=== PATIENT | male | born 1935 | race Asian ===

== ENCOUNTER → 2020-05-11 10:22 | Outpatient (BNVA) | payer MEDICARE, SELFPAY | PROVIDERS: PCP Family Medicine; Referring Provider Family Medicine; Visit Provider Internal Medicine Endocrinology, Diabetes & Metabolism | DX: E11.65 Type 2 diabetes mellitus with hyperglycemia (principal); E11.22 Type 2 diabetes mellitus with diabetic chronic kidney disease; E11.21 Type 2 diabetes mellitus with diabetic nephropathy; E11.42 Type 2 diabetes mellitus with diabetic polyneuropathy; E11.649 Type 2 diabetes mellitus with hypoglycemia without coma; N18.30 Chronic kidney disease, stage 3 unspecified; E78.5 Hyperlipidemia, unspecified; I10 Essential (primary) hypertension; I25.10 Atherosclerotic heart disease of native coronary artery without angina pectoris; Z79.899 Other long term (current) drug therapy; Z87.891 Personal history of nicotine dependence; Z79.4 Long term (current) use of insulin | CPT/HCPCS: 82947; 99212 ==

== ENCOUNTER 2020-05-23 15:57 | Inpatient (IN) | payer MEDICARE, SELFPAY ==
[2020-05-23 16:04] VITALS: BP 118/64; PULSE 87; RESP 16; TEMP 36.9; O2SAT 96; BMI 24.9
--- NOTE | 2020-05-23 16:12 | XR_ITS ---
EXAMINATION: XR CHEST CLINICAL INFORMATION: Weakness. COMPARISON: Chest x-ray 12/08/2017. CT of chest 06/11/2006 TECHNIQUE: Frontal portable view of the chest was obtained. 4:53 PM FINDINGS: No acute abnormality. There is no acute airspace opacity. There is no pleural effusion or pneumothorax. Heart size is normal. The cardiac and mediastinal contours are normal. Chronic osteosclerotic rib abnormality from old healed fracture of the posterior right seventh and eighth ribs. Prior surgical resection of the distal right clavicle. Multilevel degenerative spondylosis spine. XR/XR chest 1V IMPRESSION: No acute abnormality of the chest.
--- NOTE | 2020-05-23 16:12 | ECG_ITS ---
Test Reason : CP Blood Pressure : / mmHG Vent. Rate : 083 BPM Atrial Rate : 083 BPM P-R Int : 260 ms QRS Dur : 112 ms QT Int : 382 ms P-R-T Axes : 050 -68 026 degrees QTc Int : 448 ms Sinus rhythm with 1st degree A-V block Possible Left atrial enlargement Left axis deviation Right bundle branch block cannot exclude old inferior infarct Abnormal ECG When compared with ECG of 20-OCT-2011 11:58, QRS axis Shifted left possible changes of Inferior infarct is now Present Referred By: Elton Marti Electronically Signed By:GURWINDER LOVE
[2020-05-23 16:58] LABS: MANUAL DIFF FLAG NO
[2020-05-23 16:59] LABS: Basophils Percent Auto 0.3 % (0-2); Eosinophils Percent Auto 0.1 % (0-4); Hematocrit 37.8 % (42-52); Hemoglobin 12.2 g/dl (14.0-18.0); Imm Gran Abs Auto 0.03 X10*3/uL (0.00-0.03); Imm Gran Pct Auto 0.4 % (0.0-0.4); Lymphocytes Percent Auto 12.9 % (20-40); Mean Corpuscular HGB Conc 32.3 g/dl (31.0-36.0); Mean Corpuscular Hemoglobin 29.3 pg (27.0-33.0); Mean Corpuscular Volume 90.6 fL (80-98); Mean Platelet Volume 9.7 fL (9.4-12.4); Monocytes Absolute Auto 0.7 X10*3/uL (0.1-1.2); Monocytes Percent Auto 9.2 % (2-11); Neutrophils Absolute Auto 5.8 X10*3/uL (2.0-8.3); Neutrophils Percent Auto 77.1 % (45-73); Platelet Count 203 X10*3/uL (160-400); Red Blood Count 4.17 X10*6/uL (4.60-5.80); Red Cell Distribution Width 13.8 % (11.0-16.0); White Blood Count 7.5 X10*3/uL (4.8-10.8)
[2020-05-23 17:03] LABS: INTERNATIONAL NORM RATIO 1.1 (0.9-1.1); Prothrombin Time 13.1 SEC (10.8-13.0)
[2020-05-23 17:05] LABS: D Dimer 685 NG/ML; Partial Thromboplastin Time 33.9 SEC (24.1-38.0)
[2020-05-23] MEDS: 0.9 % Sodium Chloride 500 ML 999 ML IV (17:15)
[2020-05-23 17:20] LABS: Lactic Acid 2.5 mmol/L (0.5-2.0)
[2020-05-23 17:21] LABS: Alanine Aminotransferase 33 U/L (0-40); Albumin Level 3.8 g/dL (3.5-5.0); Alkaline Phosphatase 45 U/L (39-117); Anion Gap 16 (12-20); Aspartate Amino Transferase 33 U/L (5-37); Bilirubin Total 0.5 mg/dL (0.0-1.0); Blood Urea Nitrogen 28 mg/dL (9-16); C Reactive Protein 4.78 mg/dL (< or = 0.50); Carbon Dioxide 21 mmol/L (22-29); Chloride 101 mmol/L (96-108); Creatinine Clr Calc Pharmacy 22.8; Estimated Glomerular Filt Rate 27; Glucose Random 178 mg/dL (60-115); Lactate Dehydrogenase 211 U/L (118-273); Potassium 4.9 mmol/l (3.3-5.1); Sodium 133 mmol/L (135-145); Total Protein 6.8 g/dL (6.5-8.0)
[2020-05-23 17:29] LABS: B Type Natriuretic Peptide 65 pg/mL (<100); Troponin-I High Sensitivity 118.1 ng/L (<3.5-35.0)
--- NOTE | 2020-05-23 17:35 | CT_ITS ---
EXAMINATION: CT CHEST WITHOUT CONTRAST CLINICAL INFORMATION: Weakness COMPARISON: Chest x-ray today TECHNIQUE: Multidetector volumetric CT imaging of the chest was done. Axial MIP volume rendering provided. Sagittal and coronal reformatted images were obtained. This CT examination was performed using dose optimization techniques as appropriate, variously including the following: *Automated exposure control *Adjustment of mA and/or kV according to patient size (this includes techniques or standardized protocols for targeted exams where dose is matched to indication/reason for exam; i.e. extremities or head) *Use of iterative reconstruction technique DLP: 956 mGy-cm FINDINGS: LUNGS: There are numerous multifocal groundglass opacities, pattern of Crazy paving , consistent with atypical infection such as Covid 19. Although the affected. Lower lobes are most affected. No focal dense consolidation. MEDIASTINUM: No significant lymphadenopathy. There are multiple calcified lymph nodes in the mediastinum consistent with old granulomatous disease. The heart size is normal. No pericardial effusion. Moderate volume of coronary artery calcifications. There are scattered vascular calcifications of aorta and great vessels. PLEURA: There is no pleural effusion. No pleural mass or thickening. AXILLA: No lymphadenopathy. UPPER ABDOMEN: Status post cholecystectomy. The adrenal glands are normal. OSSEOUS STRUCTURES: Unremarkable. CT/CT chest wo con IMPRESSION: Multifocal bilateral airspace disease consistent with atypical infection such as Covid 19.
--- NOTE | 2020-05-23 17:35 | CT_ITS ---
EXAMINATION: CT HEAD WITHOUT CONTRAST CLINICAL INFORMATION: Weakness COMPARISON: CT head 06/11/2006 TECHNIQUE: Contiguous axial imaging was performed from the skull base to vertex without intravenous administration of contrast. Coronal and sagittal reformatted images are performed at CT scanner This CT examination was performed using dose optimization techniques as appropriate, variously including the following: *Automated exposure control *Adjustment of mA and/or kV according to patient size (this includes techniques or standardized protocols for targeted exams where dose is matched to indication/reason for exam; i.e. extremities or head) *Use of iterative reconstruction technique DLP: 694.04+5.12 mGy-cm FINDINGS: There is no evidence of acute intracranial hemorrhage or territorial infarction. No abnormal mass effect or midline shift is seen. Farmer to white matter differentiation is well preserved. No extra-axial fluid collections are identified. There is atrophy with prominence of the ventricles and the sulci and hypodensity of the periventricular white matter due to chronic small vessel ischemic disease. There are vascular calcifications of the internal carotid arteries bilaterally. The osseous structures and soft tissues are normal. The mastoid air cells and visualized portions of the paranasal sinuses are well aerated. CT/CT head/brain wo con IMPRESSION: No acute intracranial pathology.
[2020-05-23 18:33] LABS: Influenza A PCR NEGATIVE (Negative); Influenza B PCR NEGATIVE (Negative); Resp Syncy Virus RNA Qual PCR NEGATIVE (Negative); SARS COV2 PCR INHOUSE POSITIVE (Negative)
[2020-05-23 18:37] VITALS: PULSE 96; RESP 20; TEMP 36.9; O2SAT 97
[2020-05-23] MEDS: Acetaminophen 325 MG TABLET 650 MG PO (18:53)
[2020-05-23 18:56] LABS: Reflex Lactate? Lactic Acid Added
--- NOTE | 2020-05-23 19:10 | PC.NURSE ---
assumed care of pt. pt resting in stretcher in NAD. PA in room for re-eval. Labs being drawn to lab. pt awaiting room assignment. will continue to monitor pt.
[2020-05-23 19:42] LABS: Procalcitonin 0.09 ng/mL
[2020-05-23 20:18] VITALS: BP 132/65; PULSE 91; RESP 20; TEMP 37.3; O2SAT 95
--- NOTE | 2020-05-23 20:18 | PC.NURSE ---
pt medicated as per emar.
[2020-05-23] MEDS: Azithromycin 500 MG TABLET PO (20:30)
[2020-05-23] MEDS: cefTRIAXone sodium 1 GM in 0.9 % Sodium Chloride 50 ML IV (20:31)
[2020-05-23] MEDS: Enoxaparin Sodium 30 MG/0.3 ML SYRINGE SUBCUT (20:31)
--- NOTE | 2020-05-23 20:40 | ED.GENADULT ---
HPI - General Adult General Chief complaint: General Medical Stated complaint: body pain Time Seen by Provider: 05/23/20 16:10 Source: patient Mode of arrival: ambulatory Limitations: no limitations History of Present Illness HPI narrative: This is a 84-year-old male past medical history that is significant for diabetes, chronic kidney disease stage 3, diabetic neuropathy, dyslipidemia, hypertension, status post IL, surgical history of prostate surgery, colon resection, cholecystectomy who presents today with complaint of 5 days of myalgia and body aches with generalized weakness. States he has been very much in bed for past 5 days with no energy and diffuse body aches. States some shortness of breath on exertion otherwise no chest pain. No lower extremity pain or swelling. Onset (ago): day(s) (5 days ) Severity: moderate Quality: aching Pain Consistency: constant Relieving factors: none Treatments prior to arrival: none Related Data Home Medications Medication Instructions Recorded Confirmed aspirin 81 mg tablet,delayed 81 mg PO DAILY 05/11/20 05/23/20 release atorvastatin 20 mg tablet 20 mg PO DAILY 05/11/20 05/23/20 blood sugar diagnostic #10 ea 05/11/20 05/11/20 metformin 500 mg tablet 500 mg PO BID tab 05/11/20 05/23/20 metoprolol succinate 50 mg 25 mg PO DAILY tab 05/11/20 05/23/20 tablet,extended release 24 hr pen needle, diabetic 32 gauge x #50 ea 05/11/20 05/11/20 sitagliptin [Januvia] 100 mg PO DAILY 05/23/20 05/23/20 Allergies Allergy/AdvReac Type Severity Reaction Status Date / Time Unable to Assess Allergy Verified 05/23/20 16:11 Review of Systems Review of Systems: Constitutional: No Weight loss, No Fever, No Chills, No Night Sweats, No Fatigue ENT/Mouth: No Hearing loss, No Ear Pain, No Nasal Congestion, No Sinus Pain, No Hoarseness, No sore throat, No Rhinorrhea, No Swallowing Difficulty Eyes: No Eye Pain, No Swelling, No Redness, No Foreign Body, No Discharge, No Vision Changes Cardiovascular: No Chest Pain, No SOB, mild Dyspnea on Exertion, No Edema, No Palpitations Respiratory: No Cough, No Sputum, No Wheezing, No Smoke Exposure, No Dyspnea Gastrointestinal: No Nausea, No Vomiting, No Diarrhea, No Constipation, No abdominal Pain, No Hematochezia, No Melena Genitourinary: no irregular bleeding, No Dysuria, No Urinary Frequency, No Hematuria, No Urinary Incontinence, No Urgency, No Flank Pain, No Urinary Flow Changes, No Hesitancy Musculoskeletal: No joint pain, + Myalgias, No Joint Swelling Skin: No Skin Lesions, No rash Neuro: + Weakness, No Numbness, No Paresthesias, No Loss of Consciousness, No Dizziness, No Headache Psych: No Social Issues Heme/Lymph: No Bruising, No Bleeding,No Lymphadenopathy Endocrine: No Polyuria, No Polydipsia, No Temperature Intolerance Yes all other systems are reviewed and are negative [facility] Past Medical History Medical History (Updated 05/23/20 @ 22:06 by Elton Marti NP) CKD stage 3 due to type 2 diabetes mellitus Diabetes type 2, uncontrolled Diabetic nephropathy associated with type 2 diabetes mellitus Diabetic polyneuropathy associated with type 2 diabetes mellitus Dyslipidemia Hypertension Hypoglycemia unawareness associated with type 2 diabetes mellitus [facility] (current) use of insulin Surgical History History of colon resection History of prostate surgery Hx of cholecystectomy Social History Social History (Updated 05/10/20 @ 11:39 by Criss Tran LPN) Alcohol intake: never Smoking Status: Never smoker Tobacco Type: Cigarette Use of substances other than those prescribed or required for medical reasons: No Advance Directives: No Advance Directives Information Provided: No Physical Exam Vital Signs: Vital Signs: Last Vital Signs Temp 99.1 F 05/23/20 20:18 Pulse 91 05/23/20 20:18 Resp 20 05/23/20 20:18 BP 132/65 05/23/20 20:18 Pulse Ox 95 05/23/20 20:18 Body Mass Index 24.9 Reviewed Const: Other: Frail, elderly General: cooperative Nutritional Appearance: average body habitus Orientation/consciousness: patient oriented x3 HENMT: Head: Yes normal to inspection Ears: hearing grossly normal bilaterally Eyes: General: appearance normal, both eyes and all related structures Visual Arriola: normal visual arriola by confrontation Neck: Neck: Yes normal visual inspection, No positive Brudzinski's sign, No positive Kernig's sign and No tender Thyroid: Thyroid normal Chest: Chest palpation & inspection: normal inspection of the chest Resp: Effort & Inspection: normal respiratory effort Auscultation: clear to auscultation bilaterally Cardio: Jugular venous distension: no JVD Rhythm: regular rhythm Heart sounds: S1 normal heart sound present and S2 normal heart sound present GI: Inspection: Yes normal to inspection Palpation (GI): Soft to palpation Percussion: Yes normal to percussion Auscultation: normal bowel sounds : General: Yes no CVA tenderness Back/Spine/Pelvis: Back: no CVA tenderness Skin: General skin exam: no rashes or lesions noted Neuro: General: patient oriented x3 Extrem: General: Yes normal to inspection Course Course Course Narrative: In review 84-year-old male with above history including hypertension, hyperlipidemia, diabetes, chronic kidney disease with prior history of IL presents today with generalized weakness and myalgias going on for the past 5 days. Upon arrival visibly has exertional dyspnea feels short of breath with a few stabs however hemodynamically stable. 95% on room air not tachycardic. Will check COVID stratification labs, EKG and chest x-ray will treat with oxygen p.r.n., gradual fluids and re-evaluate. Reevaluation(s) Reevaluation #1: CBC without leukocytosis, initial troponin 118 EKG with no acute findings. Case discussed with cardiology given no pain repeat troponin. Chest x-ray unremarkable however given his symptoms I suspect COVID-19 swab is still pending CT of the chest ordered. D-dimer 685 while within the age adjusted limit. Renal function slightly higher than baseline. He still has some chills will go ahead and give him Tylenol. Reevaluation #2: CT with multifocal COVID pneumonia, positive COVID swab as well. Consultations Consultation #1: Cardiology Consultation #2: Hospitalist Chery Alcantar Admission requested Aware given dexamethasone I question whether patient should receive empiric antibiotics are not at this point I was informed that it is not indicated and should defer on antibiotics. Will admit to services. Medical Decision Making Lab Data Result diagrams: 05/23/20 16:50 05/23/20 16:50 Labs: Lab Results 05/23/20 05/23/20 05/23/20 Range/Units 16:49 16:49 16:50 WBC 7.5 (4.8-10.8) X10*3/uL RBC 4.17 L (4.60-5.80) X10*6/uL Hgb 12.2 L (14.0-18.0) g/dl Hct 37.8 L (42-52) % MCV 90.6 (80-98) fL MCH 29.3 (27.0-33.0) pg MCHC 32.3 (31.0-36.0) g/dl RDW 13.8 (11.0-16.0) % Plt Count 203 (160-400) X10*3/uL MPV 9.7 (9.4-12.4) fL Immature Gran % (Auto) 0.4 (0.0-0.4) % Neut % (Auto) 77.1 H (45-73) % Lymph % (Auto) 12.9 L (20-40) % [place] % (Auto) 9.2 (2-11) % Eos % (Auto) 0.1 (0-4) % Baso % (Auto) 0.3 (0-2) % Lymph # (Auto) 1.0 L (1.2-4.9) X10*3/uL [place] # (Auto) 0.7 (0.1-1.2) X10*3/uL Eos # (Auto) 0.0 (0.0-0.4) X10*3/uL Baso # (Auto) 0.0 (0.0-0.2) X10*3/uL Abs Immat Gran (auto) 0.03 (0.00-0.03) X10*3/uL Absolute Neuts (auto) 5.8 (2.0-8.3) X10*3/uL Absolute Nucleated RBC 0.000 (0.0-0.012) X10*3/uL Nucleated RBC % (auto) 0.0 (0.0-0.2) /100WBC PT (10.8-13.0) SEC INR (0.9-1.1) APTT (24.1-38.0) SEC D-Dimer NG/ML Sodium (135-145) mmol/L Potassium (3.3-5.1) mmol/l Chloride (96-108) mmol/L Carbon Dioxide (22-29) mmol/L Anion Gap (12-20) BUN (9-16) mg/dL Creatinine (0.5-1.4) mg/dL Estim Creat Clear Calc Estimated GFR Random Glucose (60-115) mg/dL Lactic Acid 2.5 H* (0.5-2.0) mmol/L Lactic Acid Fup @ 2Hr (0.5-2.0) mmol/L Calcium (8.4-10.2) mg/dL Total Bilirubin (0.0-1.0) mg/dL AST (5-37) U/L ALT (0-40) U/L Alkaline Phosphatase (39-117) U/L Lactate Dehydrogenase (118-273) U/L Total Creatine Kinase (38-174) U/L Troponin I High Sens 118.1 H (<3.5-35.0) ng/L C-Reactive Protein (< or = 0.50) mg/dL B-Natriuretic Peptide 65 (<100) pg/mL Total Protein (6.5-8.0) g/dL Albumin (3.5-5.0) g/dL Procalcitonin ng/mL Coronavirus (PCR) (Negative) Influenza Type A (PCR) (Negative) Influenza Type B (PCR) (Negative) RSV RNA Qual (PCR) (Negative) 05/23/20 05/23/20 05/23/20 Range/Units 16:50 16:50 17:25 WBC (4.8-10.8) X10*3/uL RBC (4.60-5.80) X10*6/uL Hgb (14.0-18.0) g/dl Hct (42-52) % MCV (80-98) fL MCH (27.0-33.0) pg MCHC (31.0-36.0) g/dl RDW (11.0-16.0) % Plt Count (160-400) X10*3/uL MPV (9.4-12.4) fL Immature Gran % (Auto) (0.0-0.4) % Neut % (Auto) (45-73) % Lymph % (Auto) (20-40) % [place] % (Auto) (2-11) % Eos % (Auto) (0-4) % Baso % (Auto) (0-2) % Lymph # (Auto) (1.2-4.9) X10*3/uL [place] # (Auto) (0.1-1.2) X10*3/uL Eos # (Auto) (0.0-0.4) X10*3/uL Baso # (Auto) (0.0-0.2) X10*3/uL Abs Immat Gran (auto) (0.00-0.03) X10*3/uL Absolute Neuts (auto) (2.0-8.3) X10*3/uL Absolute Nucleated RBC (0.0-0.012) X10*3/uL Nucleated RBC % (auto) (0.0-0.2) /100WBC PT 13.1 H (10.8-13.0) SEC INR 1.1 (0.9-1.1) APTT 33.9 (24.1-38.0) SEC D-Dimer 685 NG/ML Sodium 133 L (135-145) mmol/L Potassium 4.9 (3.3-5.1) mmol/l Chloride 101 (96-108) mmol/L Carbon Dioxide 21 L (22-29) mmol/L Anion Gap 16 (12-20) BUN 28 H (9-16) mg/dL Creatinine 2.29 H (0.5-1.4) mg/dL Estim Creat Clear Calc 22.8 Estimated GFR 27 Random Glucose 178 H (60-115) mg/dL Lactic Acid (0.5-2.0) mmol/L Lactic Acid Fup @ 2Hr (0.5-2.0) mmol/L Calcium 8.0 L (8.4-10.2) mg/dL Total Bilirubin 0.5 (0.0-1.0) mg/dL AST 33 (5-37) U/L ALT 33 (0-40) U/L Alkaline Phosphatase 45 (39-117) U/L Lactate Dehydrogenase 211 (118-273) U/L Total Creatine Kinase 562 H (38-174) U/L Troponin I High Sens (<3.5-35.0) ng/L C-Reactive Protein 4.78 H (< or = 0.50) mg/dL B-Natriuretic Peptide (<100) pg/mL Total Protein 6.8 (6.5-8.0) g/dL Albumin 3.8 (3.5-5.0) g/dL Procalcitonin ng/mL Coronavirus (PCR) POSITIVE A (Negative) Influenza Type A (PCR) NEGATIVE (Negative) Influenza Type B (PCR) NEGATIVE (Negative) RSV RNA Qual (PCR) NEGATIVE (Negative) 05/23/20 05/23/20 05/23/20 Range/Units 18:51 20:30 20:30 WBC (4.8-10.8) X10*3/uL RBC (4.60-5.80) X10*6/uL Hgb (14.0-18.0) g/dl Hct (42-52) % MCV (80-98) fL MCH (27.0-33.0) pg MCHC (31.0-36.0) g/dl RDW (11.0-16.0) % Plt Count (160-400) X10*3/uL MPV (9.4-12.4) fL Immature Gran % (Auto) (0.0-0.4) % Neut % (Auto) (45-73) % Lymph % (Auto) (20-40) % [place] % (Auto) (2-11) % Eos % (Auto) (0-4) % Baso % (Auto) (0-2) % Lymph # (Auto) (1.2-4.9) X10*3/uL [place] # (Auto) (0.1-1.2) X10*3/uL Eos # (Auto) (0.0-0.4) X10*3/uL Baso # (Auto) (0.0-0.2) X10*3/uL Abs Immat Gran (auto) (0.00-0.03) X10*3/uL Absolute Neuts (auto) (2.0-8.3) X10*3/uL Absolute Nucleated RBC (0.0-0.012) X10*3/uL Nucleated RBC % (auto) (0.0-0.2) /100WBC PT (10.8-13.0) SEC INR (0.9-1.1) APTT (24.1-38.0) SEC D-Dimer NG/ML Sodium (135-145) mmol/L Potassium (3.3-5.1) mmol/l Chloride (96-108) mmol/L Carbon Dioxide (22-29) mmol/L Anion Gap (12-20) BUN (9-16) mg/dL Creatinine (0.5-1.4) mg/dL Estim Creat Clear Calc Estimated GFR Random Glucose (60-115) mg/dL Lactic Acid (0.5-2.0) mmol/L Lactic Acid Fup @ 2Hr 1.4 (0.5-2.0) mmol/L Calcium (8.4-10.2) mg/dL Total Bilirubin (0.0-1.0) mg/dL AST (5-37) U/L ALT (0-40) U/L Alkaline Phosphatase (39-117) U/L Lactate Dehydrogenase (118-273) U/L Total Creatine Kinase (38-174) U/L Troponin I High Sens 113.1 H (<3.5-35.0) ng/L C-Reactive Protein (< or = 0.50) mg/dL B-Natriuretic Peptide (<100) pg/mL Total Protein (6.5-8.0) g/dL Albumin (3.5-5.0) g/dL Procalcitonin 0.09 ng/mL Coronavirus (PCR) (Negative) Influenza Type A (PCR) (Negative) Influenza Type B (PCR) (Negative) RSV RNA Qual (PCR) (Negative) Imaging Data Chest CT: Radiologist's impression: [place] [id number] CT Scan Report Signed Patient: Luz To#: [id number] : 1936Acct:[id number] Age/Sex: 84 / MADM Date: 05/23/20 Loc: .ED Attending Dr: Ordering Physician: Elton Marti NP Date of Service: 05/23/20 Procedure(s): CT chest wo con Accession Number(s): [id number] cc: Elton Marti NP~ EXAMINATION: CT CHEST WITHOUT CONTRAST CLINICAL INFORMATION: Weakness COMPARISON: Chest x-ray today TECHNIQUE: Multidetector volumetric CT imaging of the chest was done. Axial MIP volume rendering provided. Sagittal and coronal reformatted images were obtained. This CT examination was performed using dose optimization techniques as appropriate, variously including the following: *Automated exposure control *Adjustment of mA and/or kV according to patient size (this includes techniques or standardized protocols for targeted exams where dose is matched to indication/reason for exam; i.e. extremities or head) *Use of iterative reconstruction technique DLP: 956 mGy-cm FINDINGS: LUNGS: There are numerous multifocal groundglass opacities, pattern of Crazy paving , consistent with atypical infection such as Covid 19. Although the affected. Lower lobes are most affected. No focal dense consolidation. MEDIASTINUM: No significant lymphadenopathy. There are multiple calcified lymph nodes in the mediastinum consistent with old granulomatous disease. The heart size is normal. No pericardial effusion. Moderate volume of coronary artery calcifications. There are scattered vascular calcifications of aorta and great vessels. PLEURA: There is no pleural effusion. No pleural mass or thickening. AXILLA: No lymphadenopathy. UPPER ABDOMEN: Status post cholecystectomy. The adrenal glands are normal. OSSEOUS STRUCTURES: Unremarkable. CT/CT chest wo con IMPRESSION: Multifocal bilateral airspace disease consistent with atypical infection such as Covid 19. Dictated By:EDVIN MURILLO MD Signed By:<Electronically signed by EDVIN MURILLO MD in OV>05/23/20 1832 DD/ 1735 TD/TT: Gastroenterology Technician: NOHELIA Chest x-ray: Radiologist's impression: [place] [id number] XRay Report Signed Patient: Abelardo To#: [id number] : 7Acct:[id number] Age/Sex: 84 / MADM Date: 05/23/20 Loc: HO.ED Attending Dr: Ordering Physician: Elton Marti NP Date of Service: 05/23/20 Procedure(s): XR chest 1V Accession Number(s): [id number] cc: Elton Marti NEUROLOGY PHYSICIAN~ EXAMINATION: XR CHEST CLINICAL INFORMATION: Weakness. COMPARISON: Chest x-ray 12/08/2017. CT of chest 06/11/2006 TECHNIQUE: Frontal portable view of the chest was obtained. 4:53 PM FINDINGS: No acute abnormality. There is no acute airspace opacity. There is no pleural effusion or pneumothorax. Heart size is normal. The cardiac and mediastinal contours are normal. Chronic osteosclerotic rib abnormality from old healed fracture of the posterior right seventh and eighth ribs. Prior surgical resection of the distal right clavicle. Multilevel degenerative spondylosis spine. XR/XR chest 1V IMPRESSION: No acute abnormality of the chest. Dictated By:EDVIN MURILLO MD Signed By:<Electronically signed by EDVIN MURILLO MD in OV>05/23/20 1713 DD/ 1612 TD/TT: Gastroenterology Technician: NOHELIA ECG Data Interpretation: Normal sinus rhythm Rate 83 First degree AV block, RBBB Nonspecific changes in the anterior leads. Discharge Plan Discharge Clinical Impression: Pneumonia due to COVID-19 virus, Generalized weakness Patient Disposition: Admitted As Inpatient Prescriptions: No Action Januvia 100 mg Tablet 100 mg PO DAILY RF: 0 (DME) FreeStyle Precision Kimo Strips Strip See Rx Instructions ea .ROUTE DAILY Qty: 10 RF: 0 atorvastatin 20 mg tablet 20 mg PO DAILY RF: 0 (DME) pen needle, diabetic 32 gauge x 5/32 needle See Rx Instructions ea .ROUTE .MEDSUPPLY Qty: 50 RF: 0 metoprolol succinate 50 mg tablet extended release 24 hr 25 mg PO DAILY RF: 0 metformin 500 mg tablet 500 mg PO BID RF: 0 aspirin 81 mg tablet,delayed release (DR/EC) 81 mg PO DAILY RF: 0
[2020-05-23 20:58] LABS: ~Lactic Acid-LAB USE ONLY 1.4 mmol/L (0.5-2.0)
--- NOTE | 2020-05-23 21:19 | P.HPHOSP_ITS ---
History of Present Illness Date of Service: 05/23/20 Chief Complaint: Gen weakness/bodyaches 84-year-old male with a past medical history of hypertension, hyperlipidemia, diabetes, diabetic neuropathy, chronic kidney disease, ?copd presented to the hospital with a chief complaint of generalized weakness. Patient reports that for the past few days he has been having generalized weakness and body aches. Initially he felt like the symptoms would improve but the symptoms were not improving hence decided to come to the ER for further help. Denies any headaches lightheadedness dizziness chest pain palpitations. Denies any chills or cough. Denies any numbness tingling. Review of all other systems is negative except mentioned above ER course: For ER team patient was saturating at 95% on room air, rapid COVID test came back positive, chest x-ray consistent with COVID pneumonia. Given dexamethasone. Admitted to the hospital for further management. 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 Surgical History History of colon resection History of prostate surgery Hx of cholecystectomy Social History Household Members: Family Housing: House Do you presently have visiting nurse or other home services: No Alcohol intake: never Smoking Status: Former smoker Tobacco Type: Cigarette Smoked in Last 30 Days: No Patient Interested in Nicotine Replacement: No Patient Given Instructions on How to Stop Smoking: No Second Hand Smoke Exposure: No Use of substances other than those prescribed or required for medical reasons: No Currently Displaying Signs/Symptoms of Drug Intoxication Withdrawal: No Have you been hit, kicked, punched, or otherwise hurt by someone within the past year? If so, by whom?: No Do you feel safe in your current relationship?: No Is there a partner from a previous relationship who is making you feel unsafe now?: No Are you made to feel afraid or neglected: No Advance Directives: No Advance Directives Information Provided: No Do you have thoughts of harming others: None Do you have a plan to hurt others: No Plan Recently lost weight without trying: No Current occupational status: employed Meds Allergies Allergy/AdvReac Type Severity Reaction Status Date / Time Unable to Assess Allergy Verified 05/23/20 16:11 Home Medications Medication Instructions Recorded Confirmed Type aspirin 81 mg tablet,delayed 81 mg PO DAILY 05/11/20 05/23/20 History release atorvastatin 20 mg tablet 20 mg PO DAILY 05/11/20 05/23/20 History blood sugar diagnostic #10 ea 05/11/20 05/11/20 History metformin 500 mg tablet 500 mg PO BID tab 05/11/20 05/23/20 History metoprolol succinate 50 mg 25 mg PO DAILY tab 05/11/20 05/23/20 History tablet,extended release 24 hr pen needle, diabetic 32 gauge x #50 ea 05/11/20 05/11/20 History sitagliptin [Januvia] 100 mg PO DAILY 05/23/20 05/23/20 History Physical Exam Vital Signs and Narrative: Vital Signs: Last Vital Signs Temp 99.1 F 05/23/20 20:18 Pulse 91 05/23/20 20:18 Resp 20 05/23/20 20:18 BP 132/65 05/23/20 20:18 Pulse Ox 95 05/23/20 20:18 Body Mass Index 24.9 Gen: Appears in no Acute Distress; Breathing comfortably HEENT: NCAT, Moist Mucosa Pulm: Course Breath Sounds, fair Air Entry CVS: Normal S1- S2 Abdomen: BS+, soft, Non tender Extremities: Warm, Well Perfused. Neuro: Alert, Awake. Grossly nonfocal Results Labs CBC and Chem 7: 05/24/20 06:26 05/24/20 06:26 Labs: Laboratory Results - last 24 hr 05/23/20 05/23/20 05/23/20 16:49 16:49 16:50 MCV 90.6 MCH 29.3 MCHC 32.3 RDW 13.8 Plt Count 203 MPV 9.7 Immature Gran % (Auto) 0.4 Neut % (Auto) 77.1 H Lymph % (Auto) 12.9 L Humphreys % (Auto) 9.2 Eos % (Auto) 0.1 Baso % (Auto) 0.3 Lymph # (Auto) 1.0 L Humphreys # (Auto) 0.7 Eos # (Auto) 0.0 Baso # (Auto) 0.0 Abs Immat Gran (auto) 0.03 Absolute Neuts (auto) 5.8 Absolute Nucleated RBC 0.000 Nucleated RBC % (auto) 0.0 PT INR APTT D-Dimer Anion Gap Estim Creat Clear Calc Estimated GFR Random Glucose Lactic Acid 2.5 H* Lactic Acid Fup @ 2Hr Calcium Total Bilirubin AST ALT Alkaline Phosphatase Lactate Dehydrogenase Total Creatine Kinase Troponin I High Sens 118.1 H C-Reactive Protein B-Natriuretic Peptide 65 Total Protein Albumin Procalcitonin Coronavirus (PCR) Influenza Type A (PCR) Influenza Type B (PCR) RSV RNA Qual (PCR) 05/23/20 05/23/20 05/23/20 16:50 16:50 17:25 MCV MCH MCHC RDW Plt Count MPV Immature Gran % (Auto) Neut % (Auto) Lymph % (Auto) Humphreys % (Auto) Eos % (Auto) Baso % (Auto) Lymph # (Auto) Humphreys # (Auto) Eos # (Auto) Baso # (Auto) Abs Immat Gran (auto) Absolute Neuts (auto) Absolute Nucleated RBC Nucleated RBC % (auto) PT 13.1 H INR 1.1 APTT 33.9 D-Dimer 685 Anion Gap 16 Estim Creat Clear Calc 22.8 Estimated GFR 27 Random Glucose 178 H Lactic Acid Lactic Acid Fup @ 2Hr Calcium 8.0 L Total Bilirubin 0.5 AST 33 ALT 33 Alkaline Phosphatase 45 Lactate Dehydrogenase 211 Total Creatine Kinase 562 H Troponin I High Sens C-Reactive Protein 4.78 H B-Natriuretic Peptide Total Protein 6.8 Albumin 3.8 Procalcitonin Coronavirus (PCR) POSITIVE A Influenza Type A (PCR) NEGATIVE Influenza Type B (PCR) NEGATIVE RSV RNA Qual (PCR) NEGATIVE 05/23/20 05/23/20 18:51 20:30 MCV MCH MCHC RDW Plt Count MPV Immature Gran % (Auto) Neut % (Auto) Lymph % (Auto) Humphreys % (Auto) Eos % (Auto) Baso % (Auto) Lymph # (Auto) Humphreys # (Auto) Eos # (Auto) Baso # (Auto) Abs Immat Gran (auto) Absolute Neuts (auto) Absolute Nucleated RBC Nucleated RBC % (auto) PT INR APTT D-Dimer Anion Gap Estim Creat Clear Calc Estimated GFR Random Glucose Lactic Acid Lactic Acid Fup @ 2Hr 1.4 Calcium Total Bilirubin AST ALT Alkaline Phosphatase Lactate Dehydrogenase Total Creatine Kinase Troponin I High Sens C-Reactive Protein B-Natriuretic Peptide Total Protein Albumin Procalcitonin 0.09 Coronavirus (PCR) Influenza Type A (PCR) Influenza Type B (PCR) RSV RNA Qual (PCR) Imaging Radiologist's Impressions: Impressions Chest X-Ray 05/23/20 16:12 IMPRESSION: No acute abnormality of the chest. Chest CT 05/23/20 17:35 IMPRESSION: Multifocal bilateral airspace disease consistent with atypical infection such as Covid 19. Head CT 05/23/20 17:35 IMPRESSION: No acute intracranial pathology. Assessment and Plan (1) Pneumonia due to COVID-19 virus: Problem details: He has tachypnea and has significant shortness of breath He has COVID Status: Acute 84-YEAR-OLD MALE WITH A PAST MEDICAL HISTORY OF HYPERTENSION, HYPERLIPIDEMIA, DIABETES, CHRONIC KIDNEY DISEASE, CAD, history of colon cancer status post colectomy, history of chronic urinary incontinence PRESENTED TO THE HOSPITAL WITH A CHIEF COMPLAINT OF GENERALIZED WEAKNESS WEAKNESS/BODY ACHES. NOTED TO HAVE COVID-19 PNEUMONIA. ADMITTED TO THE HOSPITAL FOR FURTHER MANAGEMENT COVID-19 PNEUMONIA: PATIENT CURRENTLY SATURATING AT 95% ON ROOM AIR. SUPPLEMENTAL OXYGEN P.R.N. EMPIRIC ANTIBIOTICS WITH CEFTRIAXONE AZITHROMYCIN PATIENT WAS ALSO EMPIRICALLY STARTED THE ON DEXAMETHASONE ID CONSULT TYLENOL P.R.N. Positive D-dimer-age adjusted is normal. GENERALIZED WEAKNESS: LIKELY IN THE SETTING OF VIRAL INFECTION. CT HEAD SHOWED NO ACUTE FINDINGS. PHYSICAL THERAPY. FALL PRECAUTIONS. HYPERTENSION/HYPERLIPIDEMIA: CONTINUED ON HOME MEDICATIONS. CHRONIC KIDNEY DISEASE: BASELINE CREATININE AROUND 2.0. PATIENT'S CURRENT CREATININE IS 2.29. PATIENT encouraged ORAL FLUID INTAKE. PREVENTING IV FLUIDS IN ORDER TO KEEP THE PATIENT ON dry SIDE SECONDARY TO COVID PNEUMONIA. DIABETES: HOLD METFORMIN. INSULIN SLIDING SCALE. LACTIC ACIDOSIS: LIKELY IN SETTING OF DEHYDRATION. PATIENT WAS GIVEN IV FLUIDS IN THE ER. REPEAT LEVELS History of CAD: Patient has first-degree AV block on EKG, chronic changes. denies chest Pain. High sensitive troponin -118--> 113. Continued on aspirin statin and beta-sam. DVT prophylaxis: Lovenox Code status: Full code Plan discussed with the patient in detail, expressed agreement to above plan.
[2020-05-23 21:37] LABS: Troponin-I High Sensitivity 113.1 ng/L (<3.5-35.0)
[2020-05-23 22:00] VITALS: BP 128/63; PULSE 90; RESP 18; TEMP 37.2; O2SAT 96
[2020-05-23 22:45] VITALS: BP 130/68; PULSE 92; RESP 18; O2SAT 96
--- NOTE | 2020-05-23 23:22 | PC.NURSE ---
PT RESTING IN [facility] AWAITING TRANSPORT TO FLOOR. PT DENIES ANY COMPLAINTS. PT IN NAD. PT REMAINS ALERT, RESPIRATIONS N/L. SKIN W/D. FLOOR UNABLE TO TAKE REPORT AT THIS TIME.
--- NOTE | 2020-05-23 23:26 | PC.NURSE ---
REPORT GIVEN TO GLADYS MAHONEY. PT TO FLOOR ON [facility] IN [facility].
[2020-05-24] VITALS (9 sets, daily range): BP systolic 101–139; BP diastolic 52–63; PULSE 87–112; RESP 18–22; TEMP 36.6–38.6; O2SAT 90–98
[2020-05-24] MEDS: Insulin Lispro 100 UNIT/ML 3 ML VIAL SUBCUT ×5 (01:01→21:03)
[2020-05-24] MEDS: 0.9 % Sodium Chloride Flush 3 ML SYRINGE IVFLUSH ×4 (01:01→23:59)
[2020-05-24 01:10] LABS: Glucose, Whole Blood 323 mg/dL (60-115)
[2020-05-24 06:49] LABS: MANUAL DIFF FLAG NO
[2020-05-24 07:07] LABS: Hemoglobin 12.4 g/dl (14.0-18.0); Imm Gran Abs Auto 0.04 X10*3/uL (0.00-0.03); Imm Gran Pct Auto 0.6 % (0.0-0.4); Lymphocytes Absolute Auto 0.8 X10*3/uL (1.2-4.9); Mean Corpuscular HGB Conc 32.6 g/dl (31.0-36.0); Mean Corpuscular Volume 88.8 fL (80-98); Mean Platelet Volume 10.4 fL (9.4-12.4); Monocytes Absolute Auto 0.5 X10*3/uL (0.1-1.2); Monocytes Percent Auto 7.6 % (2-11); Neutrophils Absolute Auto 5.3 X10*3/uL (2.0-8.3); Neutrophils Percent Auto 79.8 % (45-73); Platelet Count 221 X10*3/uL (160-400); Red Blood Count 4.28 X10*6/uL (4.60-5.80); Red Cell Distribution Width 13.6 % (11.0-16.0); White Blood Count 6.6 X10*3/uL (4.8-10.8)
[2020-05-24 07:25] LABS: Anion Gap 17 (12-20); Blood Urea Nitrogen 35 mg/dL (9-16); Calcium 8.1 mg/dL (8.4-10.2); Carbon Dioxide 19 mmol/L (22-29); Chloride 103 mmol/L (96-108); Creatinine Clr Calc Pharmacy 23.2; Estimated Glomerular Filt Rate 28; Glucose Random 238 mg/dL (60-115); Potassium 5.1 mmol/l (3.3-5.1); Sodium 134 mmol/L (135-145)
[2020-05-24 08:09] LABS: Glucose, Whole Blood 223 mg/dL (60-115)
[2020-05-24] MEDS: Aspirin Enteric Coated 81 MG TABLET.DR PO (09:31)
[2020-05-24] MEDS: Metoprolol Succinate ER 25 MG TAB.ER.24H PO (09:32)
[2020-05-24] MEDS: Acetaminophen 325 MG TABLET 650 MG PO (11:08)
--- NOTE | 2020-05-24 12:06 | P.PNIM_ITS ---
Subjective Subjective Date of Service: 05/24/20 Interval History: Patient being followed for COVID-19 pneumonia complaining of shortness of breath, lack of appetite, fatigue and is febrile with T-max 101.5 degrees. Review of Systems General generalized weakness, febrile, poor appetite CVS no chest pain, no palpitation. Respiratory , shortness of breath, dry cough Gastrointestinal no nausea no vomiting, no abdominal pain Physical Exam Vital Signs: Vital Signs: Last Vital Signs Temp 101.5 F H 05/24/20 08:00 Pulse 112 H 05/24/20 09:32 Resp 22 H 05/24/20 08:00 BP 130/63 05/24/20 09:32 Pulse Ox 90 L 05/24/20 08:00 Body Mass Index 24.9 General appears weak in mild respiratory distress. Neck is supple no JVD. CVS regular rate rhythm, Respiratory coarse breath sound bilaterally,mildresp distress. Gastrointestinal abdomen soft, nontender, bowel sounds audible, no guarding, Extremities no clubbing cyanosis or edema. Neuro nonfocal, awake alert, speech clear. Skin no rash Objective Data Current Medications Generic Name Dose Route Start Last Admin Trade Name Freq PRN Reason Stop Dose Admin Acetaminophen 650 mg 05/24/20 10:53 05/24/20 11:08 Acetaminophen 325 Mg Tablet PO 650 mg Q6H PRN Administration PAIN Aspirin 81 mg 05/24/20 09:00 05/24/20 09:31 Aspirin Enteric Coated 81 Mg Tablet.Dr PO 81 mg DAILY JUAN MANUEL Administration Atorvastatin Calcium 20 mg 05/24/20 21:00 Atorvastatin Calcium 20 Mg Tablet PO BEDTIME JUAN MANUEL Enoxaparin Sodium 30 mg 05/23/20 20:04 05/23/20 20:31 Enoxaparin Sodium 30 Mg/0.3 Ml Syringe SUBCUT 30 mg Q24H JUAN MANUEL Administration Glucose 15 gm 05/23/20 20:04 Glucose Gel 15 Gm Gel..Gram. PO ONCE PRN hypoglycemia Ceftriaxone Sodium 1 gm/ 50 mls @ 100 mls/hr 05/23/20 20:04 05/23/20 21:06 Sodium Chloride IV Infused Q24H JUAN MANUEL Infusion Azithromycin 500 mg/ Sodium 250 mls @ 125 mls/hr 05/24/20 11:00 Chloride IV Q24H JUAN MANUEL Remdesivir 200 mg/ Sodium 210 mls @ 105 mls/hr 05/24/20 12:15 Chloride IV 05/24/20 14:14 ONCE ONE Remdesivir 100 mg/ Sodium 230 mls @ 115 mls/hr 05/25/20 13:00 Chloride IV 05/28/20 14:59 Q24H [facility] Insulin Human Lispro 0 unit 05/23/20 21:00 05/24/20 09:31 Insulin Lispro 100 Unit/Ml 3 Ml Vial SUBCUT 4 unit QIDACHS [facility] Administration Protocol Metoprolol Succinate 25 mg 05/24/20 09:30 05/24/20 09:32 Metoprolol Succinate Er 25 Mg Tab.Er.24h PO 25 mg DAILY JUAN MANUEL Administration Protocol Pharmacy Consult 1 each 05/23/20 18:08 Consult Rx Perform Med Rec MISCELLANE ONCE PRN Consult order Sodium Chloride 3 ml 05/24/20 00:00 05/24/20 09:31 0.9 % Sodium Chloride Flush 3 Ml Syringe IVFLUSH 3 ml QSHIFT [facility] Administration Labs CBC & Chem 7: 05/24/20 06:26 05/24/20 06:26 Assessment and Plan (1) Generalized weakness: Status: Acute (2) Pneumonia due to COVID-19 virus: Status: Acute (3) Hypertension: Status: Acute (4) Dyslipidemia: Status: Acute (5) Diabetic polyneuropathy associated with type 2 diabetes mellitus: Status: Acute (6) CKD stage 3 due to type 2 diabetes mellitus: Status: Acute (7) Diabetes type 2, uncontrolled: Status: Acute Assessment and Plan: 84-year-old patient with history of hypertension, hyperlipidemia, type 2 di abetes mellitus, chronic kidney disease, coronary artery disease admitted with generalized weakness body aches of 4-5 duration patient tested positive for COVID 19 infection x-ray showed bilateral infiltrate suggestive of of COVID-19 pneumonitis COVID-19 infection with pneumonitis. Patient continued to be febrile with temp of 101.5 degrees on admission oxygen saturation was 95% on room air now trending down to 90% therefore placed on oxygen Will continue IV ceftriaxone and azithromycin day 2 will continue IV dexamethasone 6 mg IV daily day 07/[address] Elissa Portillo and patient started on remdesivir due to high risk of worsening symptoms with significant comorbidities, elevated CRP of 4.78 D-dimer of 685 procalcitonin is 0.09, normal WBC, will follow electrolytes and labs closely. Elevated pulse likely due to fever, will give Tylenol and follow vitals closely. Generalized weakness in the setting of COVID-19 infection recommend high-protein diet rest and supportive care Coronary artery disease/hypertension will continue home medications including aspirin and beta-sam Acute on chronic kidney disease stage 3 receive IV fluids in the ER will hold further IV hydration avoid nephrotoxic medication follow BMP Diabetes mellitus blood sugars in 200-300 range due to steroids continue insulin sliding scale hold metformin due to renal disease Lactic acidosis due to dehydration and poor by mouth intake resolved with IV hydration Coronary artery disease stable with no chest discomfort continue aspirin statin and beta-sam DVT prophylaxis continue Lovenox
[2020-05-24 12:10] LABS: Glucose, Whole Blood 255 mg/dL (60-115)
[2020-05-24] MEDS: Azithromycin 500 MG in 0.9 % Sodium Chloride 250 ML 125 MG IV (12:29)
[2020-05-24] MEDS: Remdesivir 200 MG in 0.9 % Sodium Chloride 210 ML 105 MG IV (13:28)
[2020-05-24 16:04] LABS: Glucose, Whole Blood 247 mg/dL (60-115)
--- NOTE | 2020-05-24 16:16 | W.PM.IDCN ---
History of Present Illness Data of Consult Service Date: 05/24/20 Requesting physician: Ori Arellano Primary Care Provider: Mitchell Gleason MD HPI Reason for consult: COVID He presents to hospital with weakness for a week He has chills and fever He has COVID test positive. 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 Family History Family history: reviewed and not pertinent Surgical History Surgical History History of colon resection History of prostate surgery Hx of cholecystectomy Social History Social History Household Members: Family Housing: House Do you presently have visiting nurse or other home services: No Alcohol intake: never Smoking Status: Former smoker Tobacco Type: Cigarette Smoked in Last 30 Days: No Patient Interested in Nicotine Replacement: No Patient Given Instructions on How to Stop Smoking: No Second Hand Smoke Exposure: No Use of substances other than those prescribed or required for medical reasons: No Currently Displaying Signs/Symptoms of Drug Intoxication Withdrawal: No Have you been hit, kicked, punched, or otherwise hurt by someone within the past year? If so, by whom?: No Do you feel safe in your current relationship?: No Is there a partner from a previous relationship who is making you feel unsafe now?: No Are you made to feel afraid or neglected: No Advance Directives: No Advance Directives Information Provided: No Do you have thoughts of harming others: None Do you have a plan to hurt others: No Plan Recently lost weight without trying: No Meds Allergies Allergy/AdvReac Type Severity Reaction Status Date / Time Unable to Assess Allergy Verified 05/23/20 16:11 Home Medications Medication Instructions Recorded Confirmed Type aspirin 81 mg tablet,delayed 81 mg PO DAILY 05/11/20 05/23/20 History release atorvastatin 20 mg tablet 20 mg PO DAILY 05/11/20 05/23/20 History blood sugar diagnostic #10 ea 05/11/20 05/11/20 History metformin 500 mg tablet 500 mg PO BID tab 05/11/20 05/23/20 History metoprolol succinate 50 mg 25 mg PO DAILY tab 05/11/20 05/23/20 History tablet,extended release 24 hr pen needle, diabetic 32 gauge x #50 ea 05/11/20 05/11/20 History sitagliptin [Januvia] 100 mg PO DAILY 05/23/20 05/23/20 History Physical Exam Vital Signs: Vital Signs: Last Vital Signs Temp 99 F 05/24/20 15:39 Pulse 87 05/24/20 15:39 Resp 18 05/24/20 15:39 BP 101/53 L 05/24/20 15:39 Pulse Ox 94 05/24/20 15:39 Body Mass Index 24.9 Const: General: cooperative HENMT: Head: Yes normal to inspection Mouth: Normal oral and palatal mucosa present Eyes: General: appearance normal, both eyes and all related structures Resp: Effort & Inspection: normal respiratory effort Cardio: Rate: regular rate Rhythm: regular rhythm GI: Inspection: Yes normal to inspection Extrem: General: Yes normal to inspection Assessment and Plan (1) Pneumonia due to COVID-19 virus: Problem details: He has tachypnea and has significant shortness of breath He has COVID Status: Acute Dexamethasone Remdesivir due to incipient hypoxia,significantly short of breath Results Labs CBC & Chem 7: 05/24/20 06:26 05/24/20 06:26 Labs: Short CBC 05/23/20 05/24/20 Range/Units 16:50 06:26 WBC 7.5 6.6 (4.8-10.8) X10*3/uL Hgb 12.2 L 12.4 L (14.0-18.0) g/dl Hct 37.8 L 38.0 L (42-52) % Plt Count 203 221 (160-400) X10*3/uL BMP 05/23/20 05/24/20 16:50 06:26 Sodium 133 L 134 L Potassium 4.9 5.1 Chloride 101 103 Carbon Dioxide 21 L 19 L BUN 28 H 35 H Creatinine 2.29 H 2.25 H Calcium 8.0 L 8.1 L Cardiac Enzymes 05/23/20 Range/Units 16:50 Total Creatine Kinase 562 H (38-174) U/L Liver Function 05/23/20 Range/Units 16:50 Total Bilirubin 0.5 (0.0-1.0) mg/dL AST 33 (5-37) U/L ALT 33 (0-40) U/L Alkaline Phosphatase 45 (39-117) U/L Albumin 3.8 (3.5-5.0) g/dL
--- NOTE | 2020-05-24 16:17 | MHC.CM.PN ---
CM UNABLE TO REACH PT OR FAMILY BY PHONE. 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 PT DOES NOT USE AN ASSISTIVE DEVICE AND HAS NO SERVICES. CURRENT DC PLAN IS HOME WITH NO SERVICES CM FOLLOWING FOR CHANGING DC NEEDS DC TRANSPORT UNKNOWN AT THIS TIME
[2020-05-24 20:19] LABS: Glucose, Whole Blood 424 mg/dL (60-115)
--- NOTE | 2020-05-24 20:56 | MHC.PIE ---
2010 p; poc 424 i; nicole corona notifid; no new orders at this time e; will cont to monitor
[2020-05-24] MEDS: Enoxaparin Sodium 30 MG/0.3 ML SYRINGE SUBCUT (21:03)
[2020-05-24] MEDS: cefTRIAXone sodium 1 GM in 0.9 % Sodium Chloride 50 ML IV (21:03)
[2020-05-24] MEDS: Atorvastatin Calcium 20 MG TABLET PO (21:04)
[2020-05-25] VITALS: BP 112/59; PULSE 92; RESP 16; TEMP 37.1; O2SAT 92
[2020-05-25 04:00] VITALS: BP 122/53; PULSE 97; RESP 16; TEMP 37.4; O2SAT 94
[2020-05-25 06:37] LABS: MANUAL DIFF FLAG NO
[2020-05-25 06:49] LABS: Basophils Percent Auto 0.1 % (0-2); Hematocrit 34.2 % (42-52); Imm Gran Abs Auto 0.04 X10*3/uL (0.00-0.03); Imm Gran Pct Auto 0.5 % (0.0-0.4); Lymphocytes Absolute Auto 1.4 X10*3/uL (1.2-4.9); Lymphocytes Percent Auto 18.8 % (20-40); Mean Corpuscular HGB Conc 32.2 g/dl (31.0-36.0); Mean Corpuscular Volume 90.2 fL (80-98); Mean Platelet Volume 10.7 fL (9.4-12.4); Monocytes Absolute Auto 0.6 X10*3/uL (0.1-1.2); Monocytes Percent Auto 8.3 % (2-11); Neutrophils Absolute Auto 5.4 X10*3/uL (2.0-8.3); Neutrophils Percent Auto 72.3 % (45-73); Platelet Count 202 X10*3/uL (160-400); Red Blood Count 3.79 X10*6/uL (4.60-5.80); Red Cell Distribution Width 13.6 % (11.0-16.0); White Blood Count 7.5 X10*3/uL (4.8-10.8)
[2020-05-25 07:08] LABS: Alanine Aminotransferase 30 U/L (0-40); Albumin Level 3.4 g/dL (3.5-5.0); Alkaline Phosphatase 41 U/L (39-117); Anion Gap 17 (12-20); Aspartate Amino Transferase 48 U/L (5-37); Bilirubin Direct < 0.2 mg/dL (0.0-0.5); Bilirubin Total 0.3 mg/dL (0.0-1.0); Blood Urea Nitrogen 62 mg/dL (9-16); Calcium 7.8 mg/dL (8.4-10.2); Carbon Dioxide 18 mmol/L (22-29); Chloride 104 mmol/L (96-108); Creatinine Clr Calc Pharmacy 26.5; Estimated Glomerular Filt Rate 33; Glucose Random 271 mg/dL (60-115); Potassium 4.8 mmol/l (3.3-5.1); Sodium 134 mmol/L (135-145); Total Protein 6.3 g/dL (6.5-8.0)
[2020-05-25 07:34] VITALS: BP 105/55; PULSE 98; RESP 20; TEMP 37.2; O2SAT 92
[2020-05-25 07:52] VITALS: BP 105/55; PULSE 98; O2SAT 92
[2020-05-25 07:52] LABS: Glucose, Whole Blood 262 mg/dL (60-115)
[2020-05-25] MEDS: Insulin Lispro 100 UNIT/ML 3 ML VIAL SUBCUT ×4 (08:13→21:04)
[2020-05-25] MEDS: 0.9 % Sodium Chloride Flush 3 ML SYRINGE IVFLUSH ×3 (08:14→23:53)
[2020-05-25] MEDS: Aspirin Enteric Coated 81 MG TABLET.DR PO (08:14)
[2020-05-25] MEDS: Metoprolol Succinate ER 25 MG TAB.ER.24H PO (08:14)
--- NOTE | 2020-05-25 09:48 | MHC.CM.PN ---
CM has attempted to reach Patient at room Ext. [phone] and cell- [phone], /Lauren at [phone], Son/Raul @ [phone], but was only able to leave detailed messages for Son and , requesting a return call.DC plan appears to be home with new [facility] VS STR, pending PT eval. CM has initiated and will follow for dc planning. IMM addressed yesterday. No HCP on hand.
[2020-05-25] MEDS: Azithromycin 500 MG in 0.9 % Sodium Chloride 250 ML 125 MG IV (10:47)
[2020-05-25] MEDS: Zinc Sulfate 220 MG CAPSULE PO (10:48)
[2020-05-25] MEDS: Ascorbic Acid 500 MG TABLET PO (10:48)
[2020-05-25 11:20] LABS: Glucose, Whole Blood 295 mg/dL (60-115)
[2020-05-25] MEDS: Remdesivir 100 MG in 0.9 % Sodium Chloride 230 ML 115 MG IV (13:47)
--- NOTE | 2020-05-25 14:04 | MHC.CM.PN ---
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 CM will continue to follow for dc planning.
--- NOTE | 2020-05-25 15:21 | HO.PM.IMPN ---
Subjective Subjective Date of Service: 05/25/20 Interval History: Patient being followed for COVID-19 infection and hypoxia, this a.m. patient felt weak when caught up for home urination fell backwards and had significant tremors/chills also noted to be hypoxic, therefore placed on 4 L of oxygen, finger oximetry around 92, patient complaining of generalized weakness, has chronic urinary incontinence due to history of prostate surgery, continued to have poor appetite. Review of Systems General complaining of weakness and chills CVS no chest pain, no palpitation. Respiratory shortness of breath, dry cough Gastrointestinal no nausea no vomiting, no abdominal pain, had 2 small loose stool Physical Exam Vital Signs: Vital Signs: Last Vital Signs Temp 99 F 05/25/20 07:34 Pulse 98 05/25/20 07:52 Resp 20 05/25/20 07:34 BP 105/55 L 05/25/20 07:52 Pulse Ox 92 05/25/20 07:52 Body Mass Index 24.9 General appears weak and frail Neck is supple no JVD. CVS regular rate rhythm, Respiratory lungs clear to auscultation, diminished, no expiratory rhonchi. Gastrointestinal abdomen soft, nontender, bowel sounds audible, no no guarding , no rigidity. Extremities no clubbing, cyanosis or edema. Neuro nonfocal , speech clear. Skin no rash Objective Data Current Medications Generic Name Dose Route Start Last Admin Trade Name Freq PRN Reason Stop Dose Admin Acetaminophen 650 mg 05/24/20 10:53 05/24/20 11:08 Acetaminophen 325 Mg Tablet PO 650 mg Q6H PRN Administration PAIN Ascorbic Acid 500 mg 05/25/20 09:00 05/25/20 10:48 Ascorbic Acid 500 Mg Tablet PO 500 mg DAILY JUAN MANUEL Administration Aspirin 81 mg 05/24/20 09:00 05/25/20 08:14 Aspirin Enteric Coated 81 Mg Tablet.Dr PO 81 mg DAILY JUAN MANUEL Administration Atorvastatin Calcium 20 mg 05/24/20 21:00 05/24/20 21:04 Atorvastatin Calcium 20 Mg Tablet PO 20 mg BEDTIME JUAN MANUEL Administration Enoxaparin Sodium 30 mg 05/23/20 20:04 05/24/20 21:03 Enoxaparin Sodium 30 Mg/0.3 Ml Syringe SUBCUT 30 mg Q24H JUAN MANUEL Administration Glucose 15 gm 05/23/20 20:04 Glucose Gel 15 Gm Gel..Gram. PO ONCE PRN hypoglycemia Ceftriaxone Sodium 1 gm/ 50 mls @ 100 mls/hr 05/23/20 20:04 05/24/20 22:49 Sodium Chloride IV Infused Q24H JUAN MANUEL Infusion Azithromycin 500 mg/ Sodium 250 mls @ 125 mls/hr 05/24/20 11:00 05/25/20 13:03 Chloride IV Infused Q24H JUAN MANUEL Infusion Remdesivir 100 mg/ Sodium 230 mls @ 115 mls/hr 05/25/20 13:00 05/25/20 13:47 Chloride IV 05/28/20 14:59 115 mls/hr Q24H JUAN MANUEL Administration Insulin Human Lispro 0 unit 05/23/20 21:00 05/25/20 11:48 Insulin Lispro 100 Unit/Ml 3 Ml Vial SUBCUT 6 unit QIDACHS [facility] Administration Protocol Metoprolol Succinate 25 mg 05/24/20 09:30 05/25/20 08:14 Metoprolol Succinate Er 25 Mg Tab.Er.24h PO 25 mg DAILY JUAN MANUEL Administration Protocol Pharmacy Consult 1 each 05/23/20 18:08 Consult Rx Perform Med Rec MISCELLANE ONCE PRN Consult order Sodium Chloride 3 ml 05/24/20 00:00 05/25/20 08:14 0.9 % Sodium Chloride Flush 3 Ml Syringe IVFLUSH 3 ml QSHIFT JUAN MANUEL Administration Zinc Sulfate 220 mg 05/25/20 09:00 05/25/20 10:48 Zinc Sulfate 220 Mg Capsule PO 220 mg DAILY JUAN MANUEL Administration Labs CBC & Chem 7: 05/25/20 05:58 05/25/20 05:58 Microbiology Microbiology Results: Microbiology 05/23/20 17:42 Blood - Venous Blood Culture - Preliminary No growth after 24 hours. 05/23/20 16:49 Blood - Venous Blood Culture - Preliminary No growth after 24 hours. Assessment and Plan (1) Generalized weakness: Status: Acute (2) Pneumonia due to COVID-19 virus: Status: Acute (3) Hypertension: Status: Acute (4) Dyslipidemia: Status: Acute (5) Diabetic polyneuropathy associated with type 2 diabetes mellitus: Status: Acute (6) CKD stage 3 due to type 2 diabetes mellitus: Status: Acute (7) Diabetic nephropathy associated with type 2 diabetes mellitus: Status: Acute (8) Diabetes type 2, uncontrolled: Status: Acute Assessment and Plan: 84-year-old patient with history of hypertension, hyperlipidemia, type 2 diabetes mellitus, chronic kidney disease, coronary artery disease admitted with generalized weakness body aches of 4-5 duration patient tested positive for COVID 19 infection x-ray showed bilateral infiltrate suggestive of of COVID-19 pneumonitis COVID-19 infection with pneumonitis. No further fever spikes but continued to have low-grade fever, weakness and hypoxia, noted to have increased oxygen requirement currently on 3-4 L of oxygen with finger oximetry 92 continue IV ceftriaxone and azithromycin day 3 will continue IV dexamethasone 6 mg IV daily day 08/04 Continue remdesivir day 2 due to high risk of worsening symptoms with significant comorbidities, elevated CRP of 4.78 D-dimer of 685 , elevated CPK, procalcitonin is 0.09, Continue supportive care, with cough medication ,as needed albuterol and Tylenol follow electrolytes and renal function closely . Generalized weakness in the setting of COVID-19 infection recommend high-protein diet, fluid, rest and supportive care, being followed by Physical therapy, unable to do therapy today due to hypoxia and weakness. Coronary artery disease/hypertension bp noted to be soft, continue home medications including aspirin and beta-sam Acute on chronic kidney disease stage 3 received IV fluids in the ER , creatinine trending down, slight bump in BUN due to steroids, avoid nephrotoxic medication follow BMP Diabetes mellitus blood sugars elevated in 200-300 range due to steroids continue insulin sliding scale, hold metformin due to renal disease Lactic acidosis due to dehydration and poor by mouth intake resolved,with IV hydration Coronary artery disease stable with no chest discomfort continue aspirin, statin and beta-sam Urinary incontinence with history of prostate cancer Will place [place] catheter. DVT prophylaxis continue Lovenox
[2020-05-25 15:50] VITALS: BP 136/63; PULSE 99; RESP 22; TEMP 36.4; O2SAT 89
[2020-05-25] MEDS: dexAMETHasone sod phosphate 4 MG/ML VIAL 6 MG IVPUSH (16:16)
[2020-05-25 16:33] LABS: Glucose, Whole Blood 303 mg/dL (60-115)
[2020-05-25 19:46] VITALS: BP 120/56; PULSE 100; RESP 18; TEMP 36.9; O2SAT 90
[2020-05-25 20:49] LABS: Glucose, Whole Blood 273 mg/dL (60-115)
[2020-05-25] MEDS: Enoxaparin Sodium 30 MG/0.3 ML SYRINGE SUBCUT (21:05)
[2020-05-25] MEDS: cefTRIAXone sodium 1 GM in 0.9 % Sodium Chloride 50 ML IV (21:06)
[2020-05-25] MEDS: Atorvastatin Calcium 20 MG TABLET PO (21:08)
[2020-05-26] VITALS (12 sets, daily range): BP systolic 116–148; BP diastolic 55–78; PULSE 73–102; RESP 18–22; TEMP 36.3–36.9; O2SAT 79–100
--- NOTE | 2020-05-26 05:23 | PC.NURSE ---
p: desating i: respiratory at bedside, n/c titrated up, NRB applied e: pt sating 79% on 5L n/c , rr 26, NRB applied pt is sating 90% rr 22 , respiratory therapy at bedside to help evaluate pt, pt is much more comfortable, other than o2 status vitals are stable, pt is afebrile, is able to talk in full sentences, lungs are diminished in all lung young. will cont to monitor and reassess.
[2020-05-26 06:45] LABS: MANUAL DIFF FLAG NO
[2020-05-26 06:58] LABS: Hematocrit 31.6 % (42-52); Hemoglobin 10.3 g/dl (14.0-18.0); Imm Gran Abs Auto 0.03 X10*3/uL (0.00-0.03); Imm Gran Pct Auto 0.4 % (0.0-0.4); Lymphocytes Absolute Auto 0.9 X10*3/uL (1.2-4.9); Lymphocytes Percent Auto 12.2 % (20-40); Mean Corpuscular HGB Conc 32.6 g/dl (31.0-36.0); Mean Corpuscular Hemoglobin 28.9 pg (27.0-33.0); Mean Corpuscular Volume 88.8 fL (80-98); Mean Platelet Volume 10.8 fL (9.4-12.4); Monocytes Absolute Auto 0.7 X10*3/uL (0.1-1.2); Monocytes Percent Auto 8.7 % (2-11); Neutrophils Absolute Auto 6.1 X10*3/uL (2.0-8.3); Neutrophils Percent Auto 78.7 % (45-73); Platelet Count 231 X10*3/uL (160-400); Red Blood Count 3.56 X10*6/uL (4.60-5.80); Red Cell Distribution Width 13.5 % (11.0-16.0); White Blood Count 7.7 X10*3/uL (4.8-10.8)
[2020-05-26 07:22] LABS: Glucose, Whole Blood 332 mg/dL (60-115)
[2020-05-26 07:23] LABS: Anion Gap 17 (12-20); Blood Urea Nitrogen 63 mg/dL (9-16); Calcium 8.1 mg/dL (8.4-10.2); Carbon Dioxide 19 mmol/L (22-29); Chloride 103 mmol/L (96-108); Estimated Glomerular Filt Rate 32; Glucose Random 330 mg/dL (60-115); Potassium 5.2 mmol/l (3.3-5.1); Sodium 134 mmol/L (135-145)
[2020-05-26] MEDS: Ascorbic Acid 500 MG TABLET PO (07:38)
[2020-05-26] MEDS: dexAMETHasone sod phosphate 4 MG/ML VIAL 6 MG IVPUSH (07:38)
[2020-05-26] MEDS: Acetaminophen 325 MG TABLET 650 MG PO ×3 (07:38→22:02)
[2020-05-26] MEDS: Aspirin Enteric Coated 81 MG TABLET.DR PO (07:38)
[2020-05-26] MEDS: Metoprolol Succinate ER 25 MG TAB.ER.24H PO (07:38)
[2020-05-26] MEDS: Zinc Sulfate 220 MG CAPSULE PO (07:38)
[2020-05-26] MEDS: Insulin Lispro 100 UNIT/ML 3 ML VIAL SUBCUT ×4 (07:39→21:58)
[2020-05-26] MEDS: 0.9 % Sodium Chloride Flush 3 ML SYRINGE IVFLUSH ×2 (07:39→16:16)
[2020-05-26] MEDS: Azithromycin 500 MG in 0.9 % Sodium Chloride 250 ML 125 MG IV (10:48)
[2020-05-26 11:30] LABS: Glucose, Whole Blood 327 mg/dL (60-115)
[2020-05-26] MEDS: Remdesivir 100 MG in 0.9 % Sodium Chloride 230 ML 115 MG IV (13:00)
--- NOTE | 2020-05-26 14:04 | MHC.CM.PN ---
Male 84 DX COVID+. A HCP document has been completed with the Patient. A copy has been placed on the chart. Copies were provided to the Patient.DP home no services, family will provide transportation. CM will follow to assess for a change in DC needs.
--- NOTE | 2020-05-26 14:49 | P.PNIM_ITS ---
Subjective Subjective Date of Service: 05/26/20 Interval History: Patient being followed for COVID-19 infection and hypoxia, overnight patient became hypoxic required 100% non-rebreather mask, patient complaining of lack of sleep, and generalized body, no cough, no chest pain, no fever spikes in last 48 hours. Review of Systems General generalized weakness, decreased appetite, no fever chills. CVS no chest pain, no palpitation. Respiratory dry cough, mild shortness of breath. Gastrointestinal no nausea, no vomiting, no abdominal pain Physical Exam Vital Signs: Vital Signs: Last Vital Signs Temp 97.8 F 05/26/20 12:00 Pulse 81 05/26/20 12:00 Resp 18 05/26/20 12:00 BP 121/56 L 05/26/20 12:00 Pulse Ox 100 05/26/20 08:00 Body Mass Index 24.9 General no acute distress, no respiratory disease. Neck is supple no JVD. CVS regular rate rhythm, Respiratory lungs clear to auscultation, diminished, no respiratory distress, no wheeze, no rhonchi. Gastrointestinal abdomen soft, nontender, bowel sounds audible. Extremities no clubbing cyanosis or edema. Neuro nonfocal , speech clear. Skin no rash Objective Data Current Medications Generic Name Dose Route Start Last Admin Trade Name Freq PRN Reason Stop Dose Admin Acetaminophen 650 mg 05/24/20 10:53 05/26/20 07:38 Acetaminophen 325 Mg Tablet PO 650 mg Q6H PRN Administration PAIN Albuterol Sulfate 2 puff 05/25/20 15:39 Albuterol Sulfate 90 Mcg 8 Gm Inhaler INHALE Q4H PRN Shortness of Breath Ascorbic Acid 500 mg 05/25/20 09:00 05/26/20 07:38 Ascorbic Acid 500 Mg Tablet PO 500 mg DAILY JUAN MANUEL Administration Aspirin 81 mg 05/24/20 09:00 05/26/20 07:38 Aspirin Enteric Coated 81 Mg Tablet.Dr PO 81 mg DAILY JUAN MANUEL Administration Atorvastatin Calcium 20 mg 05/24/20 21:00 05/25/20 21:08 Atorvastatin Calcium 20 Mg Tablet PO 20 mg BEDTIME JUAN MANUEL Administration Dexamethasone Sodium Phosphate 6 mg 05/25/20 15:45 05/26/20 07:38 Dexamethasone Sod Phosphate 4 Mg/Ml Vial IVPUSH 6 mg DAILY JUAN MANUEL Administration Enoxaparin Sodium 30 mg 05/23/20 20:04 05/25/20 21:05 Enoxaparin Sodium 30 Mg/0.3 Ml Syringe SUBCUT 30 mg Q24H JUAN MANUEL Administration Glucose 15 gm 05/23/20 20:04 Glucose Gel 15 Gm Gel..Gram. PO ONCE PRN hypoglycemia Ceftriaxone Sodium 1 gm/ 50 mls @ 100 mls/hr 05/23/20 20:04 05/25/20 21:49 Sodium Chloride IV Infused Q24H JUAN MANUEL Infusion Azithromycin 500 mg/ Sodium 250 mls @ 125 mls/hr 05/24/20 11:00 05/26/20 12:56 Chloride IV Infused Q24H JUAN MANUEL Infusion Remdesivir 100 mg/ Sodium 230 mls @ 115 mls/hr 05/25/20 13:00 05/26/20 13:00 Chloride IV 05/28/20 14:59 115 mls/hr Q24H JUAN MANUEL Administration Insulin Human Lispro 0 unit 05/23/20 21:00 05/26/20 11:49 Insulin Lispro 100 Unit/Ml 3 Ml Vial SUBCUT 8 unit QIDACHS [facility] Administration Protocol Melatonin 5 mg 05/26/20 10:03 Melatonin 3 Mg Tablet PO BEDTIME PRN Insomnia Metoprolol Succinate 25 mg 05/24/20 09:30 05/26/20 07:38 Metoprolol Succinate Er 25 Mg Tab.Er.24h PO 25 mg DAILY [facility] Administration Protocol Pharmacy Consult 1 each 05/23/20 18:08 Consult Rx Perform Med Rec MISCELLANE ONCE PRN Consult order Sodium Chloride 3 ml 05/24/20 00:00 05/26/20 07:39 0.9 % Sodium Chloride Flush 3 Ml Syringe IVFLUSH 3 ml QSHIFT [facility] Administration Zinc Sulfate 220 mg 05/25/20 09:00 05/26/20 07:38 Zinc Sulfate 220 Mg Capsule PO 220 mg DAILY [facility] Administration Labs CBC & Chem 7: 05/26/20 06:12 05/26/20 06:12 Microbiology Microbiology Results: Microbiology 05/23/20 17:42 Blood - Venous Blood Culture - Preliminary No growth after 48 hours. 05/23/20 16:49 Blood - Venous Blood Culture - Preliminary No growth after 48 hours. Assessment and Plan (1) Acute respiratory failure with hypoxia: Status: Acute (2) Generalized weakness: Status: Acute (3) Pneumonia due to COVID-19 virus: Status: Acute (4) Hypertension: Status: Acute (5) Dyslipidemia: Status: Acute (6) Diabetic polyneuropathy associated with type 2 diabetes mellitus: Status: Acute (7) CKD stage 3 due to type 2 diabetes mellitus: Status: Acute (8) Diabetic nephropathy associated with type 2 diabetes mellitus: Status: Acute (9) Diabetes type 2, uncontrolled: Status: Acute Assessment and Plan: 84-year-old patient with history of hypertension, hyperlipidemia, type 2 diabetes mellitus, chronic kidney disease, coronary artery disease admitted with generalized weakness body aches of 4-5 duration patient tested positive for COVID 19 infection x-ray showed bilateral infiltrate suggestive of of COVID-19 pneumonitis COVID-19 infection with pneumonitis. No further fever spikes, persistent weakness and hypoxia, noted to have significant hypoxia with finger oximetry 79 to mid 80s last night therefore placed on 100% non-rebreather, elevated CRP of 4.78 D-dimer of 685 , elevated CPK, procalcitonin is 0.09 on admission. Renal function remains elevated but stable, hematocrit trending down , no overt bleeding noted, follow stool guaiac and hematocrit. Add PPI continue IV ceftriaxone and azithromycin day 4 will continue IV dexamethasone 6 mg IV daily day 09/04,Continue remdesivir day / , will give convalescent plasma due to worsening hypoxia, follow labs closely. Continue supportive care, with cough medication ,as needed albuterol and Tylenol follow electrolytes and renal function closely . Continue vit c and zn Acute hypoxic respiratory failure due to COVID-19 patient currently on 100% non- rebreather mask will try to wean gradually and try Oxymizer, encourage incentive spirometry, convalescent serum order Recommend frequent change of position, as needed albuterol,cough syp. Generalized weakness in the setting of COVID-19 infection recommend high-protein diet, fluid, rest and supportive care, being followed by Physical therapy, unable to do therapy today due to hypoxia and weakness. Coronary artery disease/hypertension bp stable, continue home medications including aspirin and beta-sam Acute on chronic kidney disease stage 3 received IV fluids in the ER , creatinin e at baseline , bump in BUN due to steroids, avoid nephrotoxic medication follow BMP Insomnia will add melatonin Diabetes mellitus blood sugars elevated in 200-300 range due to steroids continue insulin sliding scale, hold metformin due to renal disease Lactic acidosis due to dehydration and poor by mouth intake resolved,with IV hydration Coronary artery disease stable with no chest discomfort continue aspirin, statin and beta-sam Urinary incontinence with history of prostate cancer continue [place] catheter. DVT prophylaxis continue Lovenox
--- NOTE | 2020-05-26 15:55 | PC.NURSE ---
PT BEEN A&O TALKING ON THE PHONE FREQUENTLY, COMPLETE ASSIST WITH ADL'S. . ATTEMPTED O2 OXYMIZER 10L. FOR SEVERAL HOURS HOWEVER IT WAS DIFFICULT TO OBTAIN GOOD SAT READING DUE TO POOR CIRCULATION. HAND WERE COOL WITH DUSKY NAIL BEDS. SAT WAS 85-88 %. PT PLACED BACK ON NON REBREATHER. DR PEÑA MADE AWARE. PT WILL BE PLACED ON CONTINOUS O2 SAT MONITOR.
[2020-05-26] MEDS: Omeprazole 20 MG CAPSULE.DR PO (16:16)
[2020-05-26 16:49] LABS: Glucose, Whole Blood 366 mg/dL (60-115)
[2020-05-26] MEDS: cefTRIAXone sodium 1 GM in 0.9 % Sodium Chloride 50 ML IV (20:06)
[2020-05-26] MEDS: Enoxaparin Sodium 30 MG/0.3 ML SYRINGE SUBCUT (20:11)
[2020-05-26 21:41] LABS: Glucose, Whole Blood 289 mg/dL (60-115)
[2020-05-26] MEDS: Melatonin 3 MG TABLET 5 MG PO (21:57)
[2020-05-26] MEDS: Atorvastatin Calcium 20 MG TABLET PO (21:57)
[2020-05-27] VITALS (8 sets, daily range): BP systolic 113–137; BP diastolic 51–74; PULSE 80–83; RESP 18–22; TEMP 34.8–36.7; O2SAT 86–96
[2020-05-27] MEDS: diphenhydrAMINE HCL 25 MG TABLET PO (00:14)
[2020-05-27] MEDS: 0.9 % Sodium Chloride Flush 3 ML SYRINGE IVFLUSH ×4 (00:14→21:03)
[2020-05-27] MEDS: Acetaminophen 325 MG TABLET 650 MG PO (04:01)
[2020-05-27 06:29] LABS: MANUAL DIFF FLAG NO
[2020-05-27] MEDS: Omeprazole 20 MG CAPSULE.DR PO (06:29)
[2020-05-27 07:05] LABS: Basophils Percent Auto 0.1 % (0-2); Hematocrit 29.9 % (42-52); Hemoglobin 9.7 g/dl (14.0-18.0); Imm Gran Abs Auto 0.11 X10*3/uL (0.00-0.03); Lymphocytes Absolute Auto 0.8 X10*3/uL (1.2-4.9); Lymphocytes Percent Auto 7.3 % (20-40); Mean Corpuscular HGB Conc 32.4 g/dl (31.0-36.0); Mean Corpuscular Hemoglobin 28.8 pg (27.0-33.0); Mean Corpuscular Volume 88.7 fL (80-98); Mean Platelet Volume 11.1 fL (9.4-12.4); Monocytes Absolute Auto 0.7 X10*3/uL (0.1-1.2); Neutrophils Percent Auto 84.6 % (45-73); Platelet Count 267 X10*3/uL (160-400); Red Blood Count 3.37 X10*6/uL (4.60-5.80); Red Cell Distribution Width 13.6 % (11.0-16.0); White Blood Count 10.6 X10*3/uL (4.8-10.8)
[2020-05-27 07:11] LABS: Anion Gap 19 (12-20); Blood Urea Nitrogen 61 mg/dL (9-16); Carbon Dioxide 18 mmol/L (22-29); Chloride 106 mmol/L (96-108); Creatinine Clr Calc Pharmacy 27.5; Estimated Glomerular Filt Rate 34; Glucose Random 233 mg/dL (60-115); Potassium 4.8 mmol/l (3.3-5.1); Sodium 138 mmol/L (135-145)
[2020-05-27 08:37] LABS: Glucose, Whole Blood 246 mg/dL (60-115)
[2020-05-27] MEDS: Metoprolol Succinate ER 25 MG TAB.ER.24H PO (09:12)
[2020-05-27] MEDS: Aspirin Enteric Coated 81 MG TABLET.DR PO (09:13)
[2020-05-27] MEDS: Zinc Sulfate 220 MG CAPSULE PO (09:13)
[2020-05-27] MEDS: dexAMETHasone sod phosphate 4 MG/ML VIAL 6 MG IVPUSH (09:13)
[2020-05-27] MEDS: Insulin Lispro 100 UNIT/ML 3 ML VIAL SUBCUT ×5 (09:13→21:03)
[2020-05-27] MEDS: Ascorbic Acid 500 MG TABLET PO (09:13)
[2020-05-27 12:05] LABS: Glucose, Whole Blood 292 mg/dL (60-115)
[2020-05-27] MEDS: SITagliptin Phosphate 100 MG TABLET PO (12:15)
[2020-05-27] MEDS: Azithromycin 500 MG in 0.9 % Sodium Chloride 250 ML 125 MG IV (12:15)
--- NOTE | 2020-05-27 14:17 | P.PNIM_ITS ---
Subjective Subjective Date of Service: 05/28/20 Interval History: Being followed for COVID-19 infection and hypoxic respiratory failure, patient complaining of intermittent itching asking for Benadryl, denies worsening shortness of breath, no chest pain, concern about elevated blood sugar takes Tresiba 40 units at home. Review of Systems Review of Systems General generalized weakness, decreased appetite, itching, insomnia, no fever chills. CVS no chest pain, no palpitation. Respiratory dry cough, no shortness of breath. Gastrointestinal no nausea, no vomiting, no abdominal pain Physical Exam Vital Signs: Vital Signs: Last Vital Signs Temp 97.8 F 05/27/20 12:00 Pulse 83 05/27/20 09:12 Resp 18 05/27/20 07:50 BP 116/58 L 05/27/20 12:00 Pulse Ox 90 L 05/27/20 12:00 Body Mass Index 24.9 General no acute distress, no respiratory disease. Neck is supple no JVD. CVS regular rate rhythm, Respiratory lungs clear to auscultation, diminished bases, no respiratory distress, no wheeze, no rhonchi. Gastrointestinal abdomen soft, nontender, bowel sounds audible. Extremities no clubbing cyanosis or edema. Cold peripheries, good pulses. Neuro nonfocal , awake alert to time place and person, speech clear. Skin no rash Objective Data Current Medications Generic Name Dose Route Start Last Admin Trade Name Freq PRN Reason Stop Dose Admin Acetaminophen 650 mg 05/24/20 10:53 05/27/20 04:01 Acetaminophen 325 Mg Tablet PO 650 mg Q6H PRN Administration PAIN Albuterol Sulfate 2 puff 05/25/20 15:39 Albuterol Sulfate 90 Mcg 8 Gm Inhaler INHALE Q4H PRN Shortness of Breath Ascorbic Acid 500 mg 05/25/20 09:00 05/27/20 09:13 Ascorbic Acid 500 Mg Tablet PO 500 mg DAILY JUAN MANUEL Administration Aspirin 81 mg 05/24/20 09:00 05/27/20 09:13 Aspirin Enteric Coated 81 Mg Tablet. PO 81 mg DAILY JUAN MANUEL Administration Atorvastatin Calcium 20 mg 05/24/20 21:00 05/26/20 21:57 Atorvastatin Calcium 20 Mg Tablet PO 20 mg BEDTIME JUAN MANUEL Administration Dexamethasone Sodium Phosphate 6 mg 05/25/20 15:45 05/27/20 09:13 Dexamethasone Sod Phosphate 4 Mg/Ml Vial IVPUSH 6 mg DAILY JUAN MANUEL Administration Enoxaparin Sodium 30 mg 05/23/20 20:04 05/26/20 20:11 Enoxaparin Sodium 30 Mg/0.3 Ml Syringe SUBCUT 30 mg Q24H JUAN MANUEL Administration Glucose 15 gm 05/23/20 20:04 Glucose Gel 15 Gm Gel..Gram. PO ONCE PRN hypoglycemia Guaifenesin/Dextromethorphan 5 ml 05/27/20 10:14 Guaifenesin Dm 100/10/5 Ml 5 Ml Syrup PO Q6H PRN cough Ceftriaxone Sodium 1 gm/ 50 mls @ 100 mls/hr 05/23/20 20:04 05/26/20 20:46 Sodium Chloride IV Infused Q24H JUAN MANUEL Infusion Azithromycin 500 mg/ Sodium 250 mls @ 125 mls/hr 05/24/20 11:00 05/27/20 12:15 Chloride IV 125 mls/hr Q24H JUAN MANUEL Administration Remdesivir 100 mg/ Sodium 230 mls @ 115 mls/hr 05/25/20 13:00 05/26/20 15:17 Chloride IV 05/28/20 14:59 Infused Q24H JUAN MANUEL Infusion Insulin Glargine 28 unit 05/27/20 21:00 Insulin Glargine,Hum.Rec.Anlog 100 Unit/Ml 10 Ml Vial SUBCUT BEDTIME [facility] Insulin Human Lispro 0 unit 05/23/20 21:00 05/27/20 12:16 Insulin Lispro 100 Unit/Ml 3 Ml Vial SUBCUT 6 unit QIDACHS [facility] Administration Protocol Melatonin 5 mg 05/26/20 10:03 05/26/20 21:57 Melatonin 3 Mg Tablet PO 5 mg BEDTIME PRN Administration Insomnia Metoprolol Succinate 25 mg 05/24/20 09:30 05/27/20 09:12 Metoprolol Succinate Er 25 Mg Tab.Er.24h PO 25 mg DAILY [facility] Administration Protocol Omeprazole 20 mg 05/26/20 15:30 05/27/20 06:29 Omeprazole 20 Mg Capsule.Dr PO 20 mg DAILY@0630 [facility] Administration Pharmacy Consult 1 each 05/23/20 18:08 Consult Rx Perform Med Rec MISCELLANE ONCE PRN Consult order Sitagliptin Phosphate 100 mg 05/27/20 10:15 05/27/20 12:15 Sitagliptin Phosphate 100 Mg Tablet PO 100 mg DAILY JUAN MANUEL Administration Sodium Chloride 3 ml 05/24/20 00:00 05/27/20 09:13 0.9 % Sodium Chloride Flush 3 Ml Syringe IVFLUSH 3 ml QSHIFT JUAN MANUEL Administration Zinc Sulfate 220 mg 05/25/20 09:00 05/27/20 09:13 Zinc Sulfate 220 Mg Capsule PO 220 mg DAILY JUAN MANUEL Administration Labs CBC & Chem 7: 05/28/20 06:28 05/28/20 06:28 Microbiology Microbiology Results: Microbiology 05/23/20 17:42 Blood - Venous Blood Culture - Preliminary No growth after 48 hours. 05/23/20 16:49 Blood - Venous Blood Culture - Preliminary No growth after 48 hours. 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 No further fever spikes, persistent weakness and hypoxia, oxygenation remains stable overnight on 100% non-rebreather, changed to Oxymizer today patient tolerating it fairly well with finger oximetry 92-94%, elevated CRP of 4.78 D-dimer of 685 , elevated CPK, procalcitonin is 0.09 on admission. Renal function remains stable, hematocrit trending down , no overt bleeding noted, follow stool guaiac and hematocrit. Continue PPI continue IV ceftriaxone and azithromycin day 5 will continue IV dexamethasone 6 mg IV daily day 10/04,Continue remdesivir day / , will give convalescent plasma due to worsening hypoxia, follow labs closely. Continue supportive care, with cough medication ,as needed albuterol and Tylenol follow electrolytes, LFTs and renal function closely while on remdesivir . Continue vit c and zn Acute hypoxic respiratory failure due to COVID-19 patient tolerating Oxymizer, encourage incentive spirometry, convalescent serum 2nd dose today Recommend frequent change of position, as needed albuterol,cough syp. Generalized weakness in the setting of COVID-19 infection recommend high-protein diet, fluid, rest and supportive care, being followed by Physical therapy, unable to do therapy today due to hypoxia and weakness. Coronary artery disease/hypertension bp stable, continue home medications including aspirin and beta-sam Acute on chronic kidney disease stage 3 received IV fluids in the ER , creatinine at baseline , bump in BUN due to steroids, avoid nephrotoxic medication follow BMP Insomnia continue melatonin Diabetes mellitus blood sugars elevated in 200-300 range due to steroids continue insulin sliding scale, will place patient on Lantus since was on 40 units of Tresiba at home, will resume dose of Januvia 100 mg daily follow blood sugar closely. Lactic acidosis due to dehydration and poor by mouth intake resolved,with IV hydration Coronary artery disease stable with no chest discomfort continue aspirin, statin and beta-sam Urinary incontinence with history of prostate cancer continue [place] catheter. DVT prophylaxis continue Lovenox
[2020-05-27] MEDS: Remdesivir 100 MG in 0.9 % Sodium Chloride 230 ML 115 MG IV (14:59)
[2020-05-27 16:15] LABS: Glucose, Whole Blood 381 mg/dL (60-115)
[2020-05-27] MEDS: cefTRIAXone sodium 1 GM in 0.9 % Sodium Chloride 50 ML IV (19:34)
[2020-05-27] MEDS: Enoxaparin Sodium 30 MG/0.3 ML SYRINGE SUBCUT (19:35)
[2020-05-27 19:58] LABS: Glucose, Whole Blood 358 mg/dL (60-115)
[2020-05-27 20:57] LABS: Glucose, Whole Blood 348 mg/dL (60-115)
[2020-05-27] MEDS: Atorvastatin Calcium 20 MG TABLET PO (21:02)
[2020-05-27] MEDS: Insulin Glargine,Hum.rec.anlog 100 UNIT/ML 10 ML VIAL 30 UNIT SUBCUT (21:54)
--- NOTE | 2020-05-27 22:08 | PC.NURSE ---
Addendum entered by Noelle Skinner RN 05/28/20 00:53: At 2350 pt complaining of some anxiety and increased work of breathing. MD notified. 0.5 mg klonopin ordered and administered with good effect. Pt continues to be on nrb with spO2 >90%. Original Note: Poc 348. Pt states he is upset that he has not received the correct doses of insulin he takes at home. Pt states he should be taking 40 units lantus. Pt refusing to take ordered 18 units lantus at bedtime. This RN spoke with Dr. Lam. Lantus changed to 30 units at bedtime, pt agreeable and 30 units lantus administered.
[2020-05-27] MEDS: clonazePAM 0.5 MG TABLET PO (23:50)
[2020-05-28] VITALS (7 sets, daily range): BP systolic 102–138; BP diastolic 42–83; PULSE 74–84; RESP 20–22; TEMP 36.4–37; O2SAT 92–100
[2020-05-28] MEDS: diphenhydrAMINE HCL 25 MG TABLET PO (01:50)
[2020-05-28] MEDS: Omeprazole 20 MG CAPSULE.DR PO (05:21)
[2020-05-28 07:39] LABS: MANUAL DIFF FLAG NO
[2020-05-28 07:48] LABS: Glucose, Whole Blood 205 mg/dL (60-115)
[2020-05-28 07:49] LABS: Basophils Percent Auto 0.2 % (0-2); Hematocrit 31.4 % (42-52); Hemoglobin 10.2 g/dl (14.0-18.0); Imm Gran Abs Auto 0.13 X10*3/uL (0.00-0.03); Lymphocytes Absolute Auto 0.9 X10*3/uL (1.2-4.9); Lymphocytes Percent Auto 6.5 % (20-40); Mean Corpuscular HGB Conc 32.5 g/dl (31.0-36.0); Mean Corpuscular Hemoglobin 28.7 pg (27.0-33.0); Mean Corpuscular Volume 88.5 fL (80-98); Mean Platelet Volume 10.9 fL (9.4-12.4); Monocytes Absolute Auto 1.1 X10*3/uL (0.1-1.2); Monocytes Percent Auto 8.5 % (2-11); Neutrophils Absolute Auto 11.1 X10*3/uL (2.0-8.3); Neutrophils Percent Auto 83.8 % (45-73); Platelet Count 341 X10*3/uL (160-400); Red Blood Count 3.55 X10*6/uL (4.60-5.80); Red Cell Distribution Width 13.5 % (11.0-16.0); White Blood Count 13.3 X10*3/uL (4.8-10.8)
[2020-05-28 08:12] LABS: Albumin Level 3.3 g/dL (3.5-5.0); Bilirubin Direct 0.2 mg/dL (0.0-0.5); Bilirubin Total 0.5 mg/dL (0.0-1.0); Blood Urea Nitrogen 52 mg/dL (9-16); Calcium 7.9 mg/dL (8.4-10.2); Creatinine Clr Calc Pharmacy 31.3; Estimated Glomerular Filt Rate 39; Glucose Random 215 mg/dL (60-115); Total Protein 6.3 g/dL (6.5-8.0)
[2020-05-28 08:44] LABS: Alanine Aminotransferase 62 U/L (0-40); Alkaline Phosphatase 68 U/L (39-117); Anion Gap 15 (12-20); Aspartate Amino Transferase 103 U/L (5-37); Carbon Dioxide 23 mmol/L (22-29); Chloride 103 mmol/L (96-108); Potassium 4.9 mmol/l (3.3-5.1); Sodium 136 mmol/L (135-145)
[2020-05-28] MEDS: dexAMETHasone sod phosphate 4 MG/ML VIAL 6 MG IVPUSH (08:50)
[2020-05-28] MEDS: 0.9 % Sodium Chloride Flush 3 ML SYRINGE IVFLUSH ×2 (08:50→20:52)
[2020-05-28] MEDS: SITagliptin Phosphate 100 MG TABLET PO (08:51)
[2020-05-28] MEDS: Insulin Lispro 100 UNIT/ML 3 ML VIAL SUBCUT ×5 (08:51→20:52)
[2020-05-28] MEDS: Zinc Sulfate 220 MG CAPSULE PO (08:51)
[2020-05-28] MEDS: Aspirin Enteric Coated 81 MG TABLET.DR PO (08:51)
[2020-05-28] MEDS: Metoprolol Succinate ER 25 MG TAB.ER.24H PO (08:51)
[2020-05-28] MEDS: Ascorbic Acid 500 MG TABLET PO (08:51)
[2020-05-28 12:10] LABS: Glucose, Whole Blood 234 mg/dL (60-115)
[2020-05-28] MEDS: Azithromycin 500 MG in 0.9 % Sodium Chloride 250 ML 125 MG IV (12:54)
--- NOTE | 2020-05-28 14:52 | P.PNIM_ITS ---
Subjective Subjective Date of Service: 05/28/20 Interval History: Patient feels tired, fatigued today complaining of dry mouth and dry nasal passages, denies chest pain, denies shortness of breath no new cough no fever chills, overnight on non-rebreather mass with stable oxygenation. Review of Systems Review of Systems General generalized weakness, no fever chills. CVS no chest pain, no palpitation. Respiratory dry cough, no shortness of breath. Gastrointestinal no nausea, no vomiting, no abdominal pain Physical Exam Vital Signs: Vital Signs: Last Vital Signs Temp 98.1 F 05/28/20 12:00 Pulse 82 05/28/20 12:00 Resp 22 H 05/28/20 12:00 BP 102/42 L 05/28/20 12:00 Pulse Ox 92 05/28/20 12:00 Body Mass Index 24.9 Const: Other: General no acute distress, no respiratory disease. Neck is supple no JVD. CVS regular rate rhythm, Respiratory lungs clear to auscultation, diminished bases, no respiratory distress, no wheeze, no rhonchi. Gastrointestinal abdomen soft, nontender, bowel sounds audible. Extremities no clubbing cyanosis or edema. Cold peripheries, good pulses. Neuro nonfocal , awake alert to time place and person, speech clear. Skin no rash Objective Data Current Medications Generic Name Dose Route Start Last Admin Trade Name Joeq PRN Reason Stop Dose Admin Acetaminophen 650 mg 05/24/20 10:53 05/27/20 04:01 Acetaminophen 325 Mg Tablet PO 650 mg Q6H PRN Administration PAIN Albuterol Sulfate 2 puff 05/25/20 15:39 Albuterol Sulfate 90 Mcg 8 Gm Inhaler INHALE Q4H PRN Shortness of Breath Ascorbic Acid 500 mg 05/25/20 09:00 05/28/20 08:51 Ascorbic Acid 500 Mg Tablet PO 500 mg DAILY JUAN MANUEL Administration Aspirin 81 mg 05/24/20 09:00 05/28/20 08:51 Aspirin Enteric Coated 81 Mg Tablet. PO 81 mg DAILY JUAN MANUEL Administration Atorvastatin Calcium 20 mg 05/24/20 21:00 05/27/20 21:02 Atorvastatin Calcium 20 Mg Tablet PO 20 mg BEDTIME JUAN MANUEL Administration Clonazepam 0.5 mg 05/27/20 23:41 05/27/20 23:50 Clonazepam 0.5 Mg Tablet PO 0.5 mg BEDTIME PRN Administration Anxiety Dexamethasone Sodium Phosphate 6 mg 05/25/20 15:45 05/28/20 08:50 Dexamethasone Sod Phosphate 4 Mg/Ml Vial IVPUSH 6 mg DAILY JUAN MANUEL Administration Diphenhydramine HCl 25 mg 05/27/20 14:35 05/28/20 01:50 Diphenhydramine Hcl 25 Mg Tablet PO 25 mg Q8H PRN Administration Itching Enoxaparin Sodium 30 mg 05/23/20 20:04 05/27/20 19:35 Enoxaparin Sodium 30 Mg/0.3 Ml Syringe SUBCUT 30 mg Q24H JUAN MANUEL Administration Glucose 15 gm 05/23/20 20:04 Glucose Gel 15 Gm Gel..Gram. PO ONCE PRN hypoglycemia Guaifenesin/Dextromethorphan 5 ml 05/27/20 10:14 Guaifenesin Dm 100/10/5 Ml 5 Ml Syrup PO Q6H PRN cough Ceftriaxone Sodium 1 gm/ 50 mls @ 100 mls/hr 05/23/20 20:04 05/27/20 20:24 Sodium Chloride IV Infused Q24H JUAN MANUEL Infusion Azithromycin 500 mg/ Sodium 250 mls @ 125 mls/hr 05/24/20 11:00 05/28/20 12:54 Chloride IV 125 mls/hr Q24H JUAN MANUEL Administration Remdesivir 100 mg/ Sodium 230 mls @ 115 mls/hr 05/25/20 13:00 05/27/20 17:27 Chloride IV 05/28/20 14:59 Infused Q24H JUAN MANUEL Infusion Insulin Glargine 30 unit 05/27/20 21:40 05/27/20 21:54 Insulin Glargine,Hum.Rec.Anlog 100 Unit/Ml 10 Ml Vial SUBCUT 30 unit BEDTIME JUAN MANUEL Administration Insulin Human Lispro 0 unit 05/23/20 21:00 05/28/20 12:54 Insulin Lispro 100 Unit/Ml 3 Ml Vial SUBCUT 4 unit QIDACHS JUAN MANUEL Administration Protocol Melatonin 5 mg 05/26/20 10:03 05/26/20 21:57 Melatonin 3 Mg Tablet PO 5 mg BEDTIME PRN Administration Insomnia Metoprolol Succinate 25 mg 05/24/20 09:30 05/28/20 08:51 Metoprolol Succinate Er 25 Mg Tab.Er.24h PO 25 mg DAILY JUAN MANUEL Administration Protocol Omeprazole 20 mg 05/26/20 15:30 05/28/20 05:21 Omeprazole 20 Mg Capsule. PO 20 mg DAILY@0630 [facility] Administration Pharmacy Consult 1 each 05/23/20 18:08 Consult Rx Perform Med Rec MISCELLANE ONCE PRN Consult order Sitagliptin Phosphate 100 mg 05/27/20 10:15 05/28/20 08:51 Sitagliptin Phosphate 100 Mg Tablet PO 100 mg DAILY JUAN MANUEL Administration Sodium Chloride 3 ml 05/24/20 00:00 05/28/20 08:50 0.9 % Sodium Chloride Flush 3 Ml Syringe IVFLUSH 3 ml QSHIFT JUAN MANUEL Administration Zinc Sulfate 220 mg 05/25/20 09:00 05/28/20 08:51 Zinc Sulfate 220 Mg Capsule PO 220 mg DAILY JUAN MANUEL Administration Labs CBC & Chem 7: 05/28/20 06:28 05/28/20 06:28 Microbiology Microbiology Results: Microbiology 05/23/20 17:42 Blood - Venous Blood Culture - Preliminary No growth after 48 hours. 05/23/20 16:49 Blood - Venous Blood Culture - Preliminary No growth after 48 hours. Assessment and Plan (1) Acute respiratory failure with hypoxia: Status: Acute (2) Generalized weakness: Status: Acute (3) Pneumonia due to COVID-19 virus: Status: Acute (4) Hypertension: Status: Acute (5) Dyslipidemia: Status: Acute (6) Diabetic polyneuropathy associated with type 2 diabetes mellitus: Status: Acute (7) CKD stage 3 due to type 2 diabetes mellitus: Status: Acute (8) Diabetic nephropathy associated with type 2 diabetes mellitus: Status: Acute (9) alf (current) use of insulin: Status: Acute (10) Diabetes type 2, uncontrolled: Status: Acute Assessment and Plan: 84-year-old patient with history of hypertension, hyperlipidemia, type 2 diabetes mellitus, chronic kidney disease, coronary artery disease admitted with generalized weakness body aches of 4-5 duration patient tested positive for COVID 19 infection x-ray showed bilateral infiltrate suggestive of of COVID-19 p neumonitis COVID-19 infection with pneumonitis. No further fever spikes, persistent weakness and hypoxia, oxygenation remains stable overnight on 100% non-rebreather, will try to wean oxygen to keep finger oximetry above 90 elevated CRP of 4.78 D-dimer of 685 , elevated CPK, procalcitonin is 0.09 on admission. Renal function steadily improving, hematocrit trending up, Continue PPI continue IV dexamethasone 6 mg IV daily day 6/10 On IV ceftriaxone and azithromycin day 5 will DC IV azithromycin, last day of remdesivir today Status post convalescent plasma. Continue supportive care, with cough medication ,as needed albuterol and Tylenol, follow electrolytes, slightly elevated liver enzymes will follow , will add CPK to today's labs Continue vit c and zn Acute hypoxic respiratory failure due to COVID-19 continue non-rebreather mask gradually wean to Oxymizer as tolerated, encourage incentive spirometry Generalized weakness in the setting of COVID-19 infection recommend high-protein diet, fluid, rest and supportive care, being followed by Physical therapy, unable to do therapy today due to hypoxia and weakness. Coronary artery disease/hypertension noted to have soft blood pressure today, follow blood pressure closely, on aspirin and beta-sam, no chest pain Acute on chronic kidney disease stage 3 received IV fluids in the ER , creatinine trending down Insomnia continue melatonin Diabetes mellitus blood sugars elevated in 200-300 range due to steroids continue insulin sliding scale, diabetic diet, continue Yovani was on 40 units of Tresiba at home, continue Januvia 100 mg daily follow blood sugar closely. Lactic acidosis due to dehydration and poor by mouth intake resolved,with IV hydration Coronary artery disease stable with no chest discomfort continue aspirin, statin and beta-sam Urinary incontinence with history of prostate cancer continue [place] catheter. DVT prophylaxis continue Lovenox
[2020-05-28 16:16] LABS: Glucose, Whole Blood 249 mg/dL (60-115)
[2020-05-28] MEDS: Remdesivir 100 MG in 0.9 % Sodium Chloride 230 ML 115 MG IV (17:59)
[2020-05-28 20:12] LABS: Glucose, Whole Blood 424 mg/dL (60-115)
[2020-05-28] MEDS: cefTRIAXone sodium 1 GM in 0.9 % Sodium Chloride 50 ML IV (20:50)
[2020-05-28] MEDS: Enoxaparin Sodium 30 MG/0.3 ML SYRINGE SUBCUT (20:51)
[2020-05-28] MEDS: Insulin Glargine,Hum.rec.anlog 100 UNIT/ML 10 ML VIAL 30 UNIT SUBCUT (20:52)
[2020-05-28] MEDS: Acetaminophen 325 MG TABLET 650 MG PO (20:57)
[2020-05-29] VITALS (8 sets, daily range): BP systolic 104–142; BP diastolic 47–81; PULSE 73–109; RESP 20–24; TEMP 36.5–37; O2SAT 88–97
--- NOTE | 2020-05-29 | XR_ITS ---
EXAMINATION: XR CHEST CLINICAL INFORMATION: Hypoxia. COMPARISON: Chest 05/23/2020 TECHNIQUE: Frontal view of the chest was obtained. FINDINGS: The lungs are expanded with faint patchy groundglass opacities in both lungs similar to chest x-ray from 05/23/2020. Heart size and pulmonary vascularity is normal. There is mild spondylosis of dorsal spine. 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 XR/XR chest 1V IMPRESSION: Faint patchy opacities scattered in both lungs better visualized on the CT chest exam 05/23/2020. No pleural effusion or pneumothorax.
[2020-05-29] MEDS: Omeprazole 20 MG CAPSULE.DR PO (06:10)
[2020-05-29] MEDS: Acetaminophen 325 MG TABLET 650 MG PO ×2 (06:13→19:35)
[2020-05-29 07:42] LABS: Glucose, Whole Blood 236 mg/dL (60-115)
[2020-05-29] MEDS: Insulin Lispro 100 UNIT/ML 3 ML VIAL SUBCUT ×4 (08:20→21:31)
[2020-05-29] MEDS: Aspirin Enteric Coated 81 MG TABLET.DR PO (08:21)
[2020-05-29] MEDS: Zinc Sulfate 220 MG CAPSULE PO (08:21)
[2020-05-29] MEDS: Metoprolol Succinate ER 25 MG TAB.ER.24H PO (08:21)
[2020-05-29] MEDS: Ascorbic Acid 500 MG TABLET PO (08:21)
[2020-05-29] MEDS: dexAMETHasone sod phosphate 4 MG/ML VIAL 6 MG IVPUSH (08:21)
[2020-05-29] MEDS: SITagliptin Phosphate 100 MG TABLET PO (08:21)
[2020-05-29] MEDS: 0.9 % Sodium Chloride Flush 3 ML SYRINGE IVFLUSH ×3 (08:21→21:32)
--- NOTE | 2020-05-29 08:51 | MHC.CM.PN ---
CM spoke to pts daughter, Mireya ([phone]) who reported concern that her father may need care when he returns home. She was informed a referral has been made to [facility] who would provide a visiting nurse, and if necessary PT/OT services. CM also explained that the [facility] does not provide personal care. Private pay home care was discussed, CM provided the name and number of both [facility] and [facility] home care. CM direct number provided for follow up questions. Current DC plan is home with [facility] and private pay care. Family to transport
[2020-05-29 11:19] LABS: Glucose, Whole Blood 208 mg/dL (60-115)
--- NOTE | 2020-05-29 13:51 | P.PNIM_ITS ---
Subjective Subjective Date of Service: 05/29/20 Interval History: Patient feels tired, fatigued today complaining of dry mouth and dry nasal passages, denies chest pain, denies shortness of breath no new cough no fever chills, overnight on non-rebreather mass with stable oxygenation. Review of Systems Review of Systems General generalized weakness, nasal dryness, no fever chills. CVS no chest pain, no palpitation. Respiratory dry cough, no shortness of breath. Gastrointestinal no nausea, no vomiting, no abdominal pain Physical Exam Vital Signs: Vital Signs: Last Vital Signs Temp 97.7 F 05/29/20 12:00 Pulse 85 05/29/20 12:00 Resp 24 H 05/29/20 12:00 BP 104/47 L 05/29/20 12:00 Pulse Ox 97 05/29/20 12:00 Body Mass Index 24.9 Const: Other: General sitting on chair, no acute distress. Neck is supple no JVD. CVS regular rate rhythm, Respiratory lungs clear to auscultation, diminished at bases, no respiratory distress. Gastrointestinal abdomen soft, nontender, bowel sounds audible. Extremities no clubbing cyanosis or edema. Neuro nonfocal , speech clear. Skin no rash Objective Data Current Medications Generic Name Dose Route Start Last Admin Trade Name Freq PRN Reason Stop Dose Admin Acetaminophen 650 mg 05/24/20 10:53 05/29/20 06:13 Acetaminophen 325 Mg Tablet PO 650 mg Q6H PRN Administration PAIN Albuterol Sulfate 2 puff 05/25/20 15:39 Albuterol Sulfate 90 Mcg 8 Gm Inhaler INHALE Q4H PRN Shortness of Breath Ascorbic Acid 500 mg 05/25/20 09:00 05/29/20 08:21 Ascorbic Acid 500 Mg Tablet PO 500 mg DAILY JUAN MANUEL Administration Aspirin 81 mg 05/24/20 09:00 05/29/20 08:21 Aspirin Enteric Coated 81 Mg Tablet. PO 81 mg DAILY JUAN MANUEL Administration Benzocaine 1 lozenge 05/28/20 15:06 Throat Lozenge, Medicated Lozenge MUCOUS MEM Q2H PRN Sore Throat Clonazepam 0.5 mg 05/27/20 23:41 05/27/20 23:50 Clonazepam 0.5 Mg Tablet PO 0.5 mg BEDTIME PRN Administration Anxiety Dexamethasone Sodium Phosphate 6 mg 05/25/20 15:45 05/29/20 08:21 Dexamethasone Sod Phosphate 4 Mg/Ml Vial IVPUSH 6 mg DAILY JUAN MANUEL Administration Diphenhydramine HCl 25 mg 05/27/20 14:35 05/28/20 01:50 Diphenhydramine Hcl 25 Mg Tablet PO 25 mg Q8H PRN Administration Itching Enoxaparin Sodium 30 mg 05/23/20 20:04 05/28/20 20:51 Enoxaparin Sodium 30 Mg/0.3 Ml Syringe SUBCUT 30 mg Q24H JUAN MANUEL Administration Glucose 15 gm 05/23/20 20:04 Glucose Gel 15 Gm Gel..Gram. PO ONCE PRN hypoglycemia Guaifenesin/Dextromethorphan 5 ml 05/27/20 10:14 Guaifenesin Dm 100/10/5 Ml 5 Ml Syrup PO Q6H PRN cough Ceftriaxone Sodium 1 gm/ 50 mls @ 100 mls/hr 05/23/20 20:04 05/28/20 21:43 Sodium Chloride IV Infused Q24H [facility] Infusion Insulin Glargine 30 unit 05/27/20 21:40 05/28/20 20:52 Insulin Glargine,Hum.Rec.Anlog 100 Unit/Ml 10 Ml Vial SUBCUT 30 unit BEDTIME [facility] Administration Insulin Human Lispro 0 unit 05/23/20 21:00 05/29/20 12:21 Insulin Lispro 100 Unit/Ml 3 Ml Vial SUBCUT 4 unit QIDACHS [facility] Administration Protocol Melatonin 5 mg 05/26/20 10:03 05/26/20 21:57 Melatonin 3 Mg Tablet PO 5 mg BEDTIME PRN Administration Insomnia Metoprolol Succinate 25 mg 05/24/20 09:30 05/29/20 08:21 Metoprolol Succinate Er 25 Mg Tab.Er.24h PO 25 mg DAILY [facility] Administration Protocol Omeprazole 20 mg 05/26/20 15:30 05/29/20 06:10 Omeprazole 20 Mg Capsule.Dr PO 20 mg DAILY@0630 [facility] Administration Pharmacy Consult 1 each 05/23/20 18:08 Consult Rx Perform Med Rec MISCELLANE ONCE PRN Consult order Sitagliptin Phosphate 100 mg 05/27/20 10:15 05/29/20 08:21 Sitagliptin Phosphate 100 Mg Tablet PO 100 mg DAILY [facility] Administration Sodium Chloride 3 ml 05/24/20 00:00 05/29/20 08:21 0.9 % Sodium Chloride Flush 3 Ml Syringe IVFLUSH 3 ml QSHIFT JUAN MANUEL Administration Zinc Sulfate 220 mg 05/25/20 09:00 05/29/20 08:21 Zinc Sulfate 220 Mg Capsule PO 220 mg DAILY JUAN MANUEL Administration Labs CBC & Chem 7: 05/28/20 06:28 05/28/20 06:28 Microbiology Microbiology Results: Microbiology 05/23/20 17:42 Blood - Venous Blood Culture - Final No growth after 5 days. 05/23/20 16:49 Blood - Venous Blood Culture - Final No growth after 5 days. Assessment and Plan (1) Acute respiratory failure with hypoxia: Status: Acute (2) Generalized weakness: Status: Acute (3) Pneumonia due to COVID-19 virus: Status: Acute (4) Hypertension: Status: Acute (5) Dyslipidemia: Status: Acute (6) Diabetic polyneuropathy associated with type 2 diabetes mellitus: Status: Acute (7) CKD stage 3 due to type 2 diabetes mellitus: Status: Acute (8) Diabetic nephropathy associated with type 2 diabetes mellitus: Status: Acute (9) retirement (current) use of insulin: Status: Acute (10) Diabetes type 2, uncontrolled: Status: Acute Assessment and Plan: 84-year-old patient with history of hypertension, hyperlipidemia, type 2 diabetes mellitus, chronic kidney disease, coronary artery disease admitted with generalized weakness body aches of 4-5 duration patient tested positive for COVID 19 infection x-ray showed bilateral infiltrate suggestive of of COVID-19 pneumonitis COVID-19 infection with pneumonitis. No further fever spikes, persistent weakness , O2 sat improved to 100% on 100% non-rebreather, patient refusing to use Oxymizer due to nasal dryness, refusing Venti mask Since rubber bands gives him headache and pressure on ears, therefore placed on high-flow oxygen 70 liters/minute finger oximetry 97% elevated CRP of 4.78 D-dimer of 685 , elevated CPK, procalcitonin is 0.09 on admission. Renal function steadily improving, hematocrit trending up, Continue PPI continue IV dexamethasone 6 mg IV daily day 12/04 Continue IV ceftriaxone day Continue vitamin-C and zinc Continue supportive care with cough medication as needed albuterol and Tylenol Check follow-up chest x-ray Patient finish course of remdesivir and IV azithromycin Status post convalescent plasma. Mildly elevated LFTs likely related to remdesivir, need outpatient follow-up LFTs Acute hypoxic respiratory failure due to COVID-19 continue high-flow oxygen, since unable to tolerate Oxymizer and Venti mask keep finger oximetry around 90 Elevated CPK Patient on admission was noted to have CPK in 500 repeat CPK was obtained and is 3257 likely multifactorial related to COVID-19 infection, interaction between statin and azithromycin, Statin discontinued will repeat CPK in next 1-2 days, last LDL 77 in February 14. Generalized weakness in the setting of COVID-19 infection recommend high-protein diet, fluid, rest and supportive care, to be re-evaluated by Physical therapy once oxygenation improves Coronary artery disease/hypertension noted to have soft blood pressure today, follow blood pressure closely, on aspirin and beta-sam, no chest pain Acute on chronic kidney disease stage 3 received IV fluids in the ER , creatinine trending down steadily Insomnia continue melatonin Diabetes mellitus blood sugars elevated in 200-300 range due to steroids continue insulin sliding scale, diabetic diet, continue Lantus was on 40 units of Tresiba at home, continue Januvia 100 mg daily follow blood sugar closely. Lactic acidosis due to dehydration and poor by mouth intake resolved,with IV hydration Coronary artery disease stable with no chest discomfort, and beta-sam ldl 77, repeat ldl in 3 months. Urinary incontinence with history of prostate cancer continue [place] catheter. DVT prophylaxis continue Lovenox
[2020-05-29 16:17] LABS: Glucose, Whole Blood 215 mg/dL (60-115)
[2020-05-29] MEDS: cefTRIAXone sodium 1 GM in 0.9 % Sodium Chloride 50 ML IV (19:35)
[2020-05-29] MEDS: Enoxaparin Sodium 30 MG/0.3 ML SYRINGE SUBCUT (19:35)
[2020-05-29 20:32] LABS: Glucose, Whole Blood 291 mg/dL (60-115)
[2020-05-29] MEDS: Insulin Glargine,Hum.rec.anlog 100 UNIT/ML 10 ML VIAL 30 UNIT SUBCUT (21:32)
[2020-05-30] VITALS (14 sets, daily range): BP systolic 95–129; BP diastolic 48–63; PULSE 18–93; RESP 18–26; TEMP 36.5–37.1; O2SAT 90–100
--- NOTE | 2020-05-30 | NM_ITS ---
EXAMINATION: NM LUNG IMAGE PERFUSION CLINICAL INFORMATION: Hypoxia COMPARISON: Chest x-ray dated 05/29/2020 and CTA chest dated 05/23/2020 TECHNIQUE: Following the intravenous administration of 4.0 mCi Tc99m MAA, images of the chest were again obtained in multiple projections using a gamma scintophoto camera. PERFUSION IMAGES: There is a single large defect involving the posterior segment of the right upper lobe. No additional perfusion abnormalities are noted. No definite corresponding radiographic correlate. NM/IN pul perfusion IMPRESSION: Intermediate probability for pulmonary embolism.
[2020-05-30] MEDS: clonazePAM 0.5 MG TABLET PO ×2 (02:25→21:27)
--- NOTE | 2020-05-30 04:43 | PM.EVENT ---
Event Note Date of Service: 05/30/20 Event Note: Patient confused, delirious, noncompliant with care, keeps taking off his oxygen mask desatting to the 60s. 2.5 mg of Haldol were given.
[2020-05-30] MEDS: Haloperidol Lactate 5 MG/ML VIAL 2.5 MG IVPUSH (05:02)
[2020-05-30 06:38] LABS: ABG PCO2 29 mmhg (32-45); HCO3 ABG 20 mmol/l (22-26); Oxygen Saturation ABG 90.2 %; PO2 ABG 59 mmhg (83-108); Pt Ventilation O2% 100%; pH ABG 7.46 (7.35-7.45)
[2020-05-30 06:40] LABS: Blood Gas Serial # 5414
--- NOTE | 2020-05-30 07:18 | PC.NURSE ---
Pt non compliant with O2 mask. Pt on high flow as it best meets his O2 requirements. Pt frequently pulling cannula off, resulting in his sats dropping as low as 60%. Pt educated on the importance of keeping the oxygen cannula on. 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 MD made aware, new order for Haldol 2.5mg given with good effect. Pt resting quietly on 100% highflow. Abgs ordered, will continue to closely monitor pt, will continue to encourage compliance with plan of care.
[2020-05-30] MEDS: Ascorbic Acid 500 MG TABLET PO (11:11)
[2020-05-30] MEDS: Zinc Sulfate 220 MG CAPSULE PO (11:11)
[2020-05-30] MEDS: SITagliptin Phosphate 100 MG TABLET PO (11:11)
[2020-05-30] MEDS: Aspirin Enteric Coated 81 MG TABLET.DR PO (11:11)
[2020-05-30] MEDS: 0.9 % Sodium Chloride Flush 3 ML SYRINGE IVFLUSH ×3 (11:12→21:28)
[2020-05-30] MEDS: dexAMETHasone sod phosphate 4 MG/ML VIAL 6 MG IVPUSH (11:12)
[2020-05-30] MEDS: Metoprolol Succinate ER 25 MG TAB.ER.24H PO (11:12)
[2020-05-30] MEDS: Insulin Lispro 100 UNIT/ML 3 ML VIAL SUBCUT ×3 (12:13→21:28)
--- NOTE | 2020-05-30 14:27 | P.PNIM_ITS ---
Subjective Subjective Date of Service: 05/30/20 Interval History: Patient being followed for hypoxic respiratory failure/COVID 19 Review of Systems Review of Systems General generalized weakness, nasal dryness, no fever chills. CVS no chest pain, no palpitation. Respiratory dry cough, no shortness of breath. Gastrointestinal no nausea, no vomiting, no abdominal pain Physical Exam Vital Signs: Vital Signs: Last Vital Signs Temp 98.2 F 05/30/20 08:00 Pulse 71 05/30/20 08:00 Resp 20 05/30/20 11:21 BP 113/59 L 05/30/20 08:00 Pulse Ox 100 05/30/20 08:00 Body Mass Index 24.9 Const: Other: General resting in bed, ill-appearing, no acute distress. Neck is supple no JVD. CVS regular rate rhythm, Respiratory lungs clear to auscultation, diminished at bases, no respiratory distress. Gastrointestinal abdomen soft, nontender, bowel sounds audible. Extremities no clubbing cyanosis or edema. Neuro nonfocal , speech clear. Skin no rash Objective Data Current Medications Generic Name Dose Route Start Last Admin Trade Name Joeq PRN Reason Stop Dose Admin Acetaminophen 650 mg 05/24/20 10:53 05/29/20 19:35 Acetaminophen 325 Mg Tablet PO 650 mg Q6H PRN Administration PAIN Albuterol Sulfate 2 puff 05/25/20 15:39 Albuterol Sulfate 90 Mcg 8 Gm Inhaler INHALE Q4H PRN Shortness of Breath Ascorbic Acid 500 mg 05/25/20 09:00 05/30/20 11:11 Ascorbic Acid 500 Mg Tablet PO 500 mg DAILY JUAN MANUEL Administration Aspirin 81 mg 05/24/20 09:00 05/30/20 11:11 Aspirin Enteric Coated 81 Mg Tablet.Dr PO 81 mg DAILY JUAN MANUEL Administration Benzocaine 1 lozenge 05/28/20 15:06 Throat Lozenge, Medicated Lozenge MUCOUS MEM Q2H PRN Sore Throat Clonazepam 0.5 mg 05/27/20 23:41 05/30/20 02:25 Clonazepam 0.5 Mg Tablet PO 0.5 mg BEDTIME PRN Administration Anxiety Dexamethasone Sodium Phosphate 6 mg 05/25/20 15:45 05/30/20 11:12 Dexamethasone Sod Phosphate 4 Mg/Ml Vial IVPUSH 6 mg DAILY JUAN MANUEL Administration Diphenhydramine HCl 25 mg 05/27/20 14:35 05/28/20 01:50 Diphenhydramine Hcl 25 Mg Tablet PO 25 mg Q8H PRN Administration Itching Enoxaparin Sodium 30 mg 05/23/20 20:04 05/29/20 19:35 Enoxaparin Sodium 30 Mg/0.3 Ml Syringe SUBCUT 30 mg Q24H JUAN MANUEL Administration Glucose 15 gm 05/23/20 20:04 Glucose Gel 15 Gm Gel..Gram. PO ONCE PRN hypoglycemia Guaifenesin/Dextromethorphan 5 ml 05/27/20 10:14 Guaifenesin Dm 100/10/5 Ml 5 Ml Syrup PO Q6H PRN cough Ceftriaxone Sodium 1 gm/ 50 mls @ 100 mls/hr 05/23/20 20:04 05/29/20 20:00 Sodium Chloride IV 0 mls/hr Q24H [facility] Infusion Insulin Glargine 30 unit 05/27/20 21:40 05/29/20 21:32 Insulin Glargine,Hum.Rec.Anlog 100 Unit/Ml 10 Ml Vial SUBCUT 30 unit BEDTIME [facility] Administration Insulin Human Lispro 0 unit 05/23/20 21:00 05/30/20 12:13 Insulin Lispro 100 Unit/Ml 3 Ml Vial SUBCUT 4 unit QIDACHS [facility] Administration Protocol Melatonin 5 mg 05/26/20 10:03 05/26/20 21:57 Melatonin 3 Mg Tablet PO 5 mg BEDTIME PRN Administration Insomnia Metoprolol Succinate 25 mg 05/24/20 09:30 05/30/20 11:12 Metoprolol Succinate Er 25 Mg Tab.Er.24h PO 25 mg DAILY [facility] Administration Protocol Omeprazole 20 mg 05/26/20 15:30 05/30/20 06:22 Omeprazole 20 Mg Capsule.Dr PO Not Given DAILY@0630 [facility] Pharmacy Consult 1 each 05/23/20 18:08 Consult Rx Perform Med Rec MISCELLANE ONCE PRN Consult order Sitagliptin Phosphate 100 mg 05/27/20 10:15 05/30/20 11:11 Sitagliptin Phosphate 100 Mg Tablet PO 100 mg DAILY [facility] Administration Sodium Chloride 3 ml 05/24/20 00:00 05/30/20 11:12 0.9 % Sodium Chloride Flush 3 Ml Syringe IVFLUSH 3 ml QSHIFT [facility] Administration Zinc Sulfate 220 mg 05/25/20 09:00 05/30/20 11:11 Zinc Sulfate 220 Mg Capsule PO 220 mg DAILY JUAN MANUEL Administration Labs CBC & Chem 7: 05/28/20 06:28 05/28/20 06:28 Microbiology Microbiology Results: Microbiology 05/23/20 17:42 Blood - Venous Blood Culture - Final No growth after 5 days. 05/23/20 16:49 Blood - Venous Blood Culture - Final No growth after 5 days. Assessment and Plan (1) Acute respiratory failure with hypoxia: Status: Acute (2) Generalized weakness: Status: Acute (3) Pneumonia due to COVID-19 virus: Status: Acute (4) Hypertension: Status: Acute (5) Dyslipidemia: Status: Acute (6) Diabetic polyneuropathy associated with type 2 diabetes mellitus: Status: Acute (7) CKD stage 3 due to type 2 diabetes mellitus: Status: Acute (8) Diabetic nephropathy associated with type 2 diabetes mellitus: Status: Acute (9) halfway (current) use of insulin: Status: Acute (10) Diabetes type 2, uncontrolled: Status: Acute Assessment and Plan: 84-year-old patient with history of hypertension, hyperlipidemia, type 2 diabetes mellitus, chronic kidney disease, coronary artery disease admitted with generalized weakness body aches of 4-5 duration patient tested positive for COVID 19 infection x-ray showed bilateral infiltrate suggestive of of COVID-19 pneumonitis COVID-19 infection with pneumonitis. No further fever spikes, persistent weakness , and intermittent hypoxia currently on high-flow oxygen, finger oximetry 94-95 elevated CRP of 4.78 D-dimer of 685 , elevated CPK, procalcitonin is 0.09 on admission. Renal function steadily improving, hematocrit trending up, Continue PPI continue IV dexamethasone 6 mg IV daily day 01/04 on IV ceftriaxone day 8 will DC after today's dose Continue vitamin-C and zinc Continue supportive care with cough medication as needed albuterol and Tylenol Repeat chest x-ray 05/29/20 showed faint patchy opacity both lungs unchanged Patient finish course of remdesivir and IV azithromycin Status post convalescent plasma. 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 Acute hypoxic respiratory failure due to COVID-19 continue high-flow oxygen, since unable to tolerate Oxymizer and Venti mask keep finger oximetry around 90 , follow D-dimer, check CTA chest with any worsening hypoxia to rule out PE Elevated CPK Patient on admission was noted to have CPK in 500 repeat CPK was obtained and is 3257 likely multifactorial related to COVID-19 infection, interaction between statin and azithromycin, Statin discontinued will repeat CPK , last LDL 77 in February 14. Generalized weakness in the setting of COVID-19 infection recommend high-protein diet, fluid, rest and supportive care, to be re-evaluated by Physical therapy once oxygenation improves Coronary artery disease/hypertension noted to have soft blood pressure today, follow blood pressure closely, on aspirin and beta-sam, no chest pain Acute on chronic kidney disease stage 3 received IV fluids in the ER , creatinine trending down steadily Insomnia continue melatonin Diabetes mellitus blood sugars elevated in 200-300 range due to steroids continue insulin sliding scale, diabetic diet, continue Lantus was on 40 units of Tresiba at home, continue Januvia 100 mg daily follow blood sugar closely. Lactic acidosis due to dehydration and poor by mouth intake resolved,with IV hydration Coronary artery disease stable with no chest discomfort, and beta-sam ldl 77, repeat ldl in 3 months. Urinary incontinence with history of prostate cancer place [place] catheter. DVT prophylaxis continue Lovenox
[2020-05-30 15:56] LABS: D Dimer 1280 NG/ML
[2020-05-30 16:01] LABS: C Reactive Protein 3.71 mg/dL (< or = 0.50)
[2020-05-30 16:18] LABS: Glucose, Whole Blood 272 mg/dL (60-115)
[2020-05-30] MEDS: Enoxaparin Sodium 60 MG/0.6 ML SYRINGE 35 MG SUBCUT (19:40)
[2020-05-30] MEDS: cefTRIAXone sodium 1 GM in 0.9 % Sodium Chloride 50 ML IV (19:40)
[2020-05-30 20:34] LABS: Glucose, Whole Blood 318 mg/dL (60-115)
[2020-05-30] MEDS: Insulin Glargine,Hum.rec.anlog 100 UNIT/ML 10 ML VIAL 30 UNIT SUBCUT (21:27)
[2020-05-30] MEDS: Melatonin 3 MG TABLET 5 MG PO (21:27)
[2020-05-31] VITALS (30 sets, daily range): BP systolic 95–140; BP diastolic 35–59; PULSE 55–87; RESP 16–28; TEMP 35.7–37.1; O2SAT 7–100; BMI 24.9
--- NOTE | 2020-05-31 | US_ITS ---
EXAMINATION: US VENOUS ULTRASOUND WITH DOPPLER LOWER EXTREMITY, BILATERAL CLINICAL INFORMATION: Rule out DVT COMPARISON: None TECHNIQUE: Ultrasound of the deep veins is performed from the hip to the calf with compression sonography and color and pulse Doppler assessment. Spectral analysis with color-flow imaging is performed. FINDINGS: RIGHT: There is normal venous compression and respiratory variation and augmented flow. The visualized common femoral vein, superficial femoral vein, profunda femoral vein, popliteal vein, and the trifurcation region shows no evidence of deep venous thrombosis. There is no significant popliteal fossa cyst. LEFT: There is normal venous compression and respiratory variation and augmented flow. The visualized common femoral vein, superficial femoral vein, profunda femoral vein, popliteal vein, and the trifurcation region shows no evidence of deep venous thrombosis. There is no significant popliteal fossa cyst. US/US venous duplex LE BI IMPRESSION: No DVT demonstrated in the bilateral lower extremity.
[2020-05-31 01:37] LABS: Glucose, Whole Blood 85 mg/dL (60-115)
--- NOTE | 2020-05-31 02:02 | PC.NURSE ---
Pt's pulse was dropping into 30's, went to check on him, pt. unresponsive, breathing heavy, code was called. Pt. return of pulse transferred to ICU.
--- NOTE | 2020-05-31 03:10 | XR_ITS ---
EXAMINATION: XR CHEST CLINICAL INFORMATION: Endotracheal tube placement and central line placement. COMPARISON: 05/29/2020 TECHNIQUE: Frontal view of the chest was obtained. FINDINGS: The endotracheal tube terminates less than 1 cm above the jimena. Enteric tube extends into the stomach. Right internal jugular central venous catheter terminates near the cavoatrial junction. Lung volumes are low. Diffuse hazy bilateral airspace opacities which are increased from prior. No pneumothorax. No definite pleural effusion. The cardiomediastinal silhouette is within normal limits. XR/XR chest 1V IMPRESSION: Endotracheal tube terminating less than 1 cm above the jimena. Suggest retraction. Right internal jugular central venous catheter terminates near the cavoatrial junction. No pneumothorax. Worsening bilateral airspace opacities. This critical result was discussed with Rosa Maria Najera APRN by telephone at 05/31/2020 3:44 AM and it was ascertained that the content and urgency of the report was understood at the time of direct communication.
[2020-05-31 03:30] LABS: Base Excess VBG -14.4 mmol/L; HCO3 VBG 14 mmol/L; Oxygen Saturation VBG 54.1 %; PCO2 VBG 43 mmhg; PO2 VBG 41 mmhg
[2020-05-31 03:31] LABS: pH VBG 7.13 (7.32-7.43)
[2020-05-31 03:47] LABS: ABG PCO2 38 mmhg (32-45); Base Excess ABG -14.6; HCO3 ABG 13 mmol/l (22-26); PO2 ABG 76 mmhg (83-108); Pt Ventilation O2% 100%
[2020-05-31 03:48] LABS: Oxygen Saturation ABG 90.1 %
[2020-05-31 03:49] LABS: pH ABG 7.15 (7.35-7.45)
[2020-05-31 03:56] LABS: Alanine Aminotransferase 210 U/L (0-40); Albumin Level 2.8 g/dL (3.5-5.0); Alkaline Phosphatase 230 U/L (39-117); Anion Gap 27 (12-20); Aspartate Amino Transferase 343 U/L (5-37); Bilirubin Total 0.6 mg/dL (0.0-1.0); Blood Urea Nitrogen 63 mg/dL (9-16); Carbon Dioxide 14 mmol/L (22-29); Chloride 102 mmol/L (96-108); Estimated Glomerular Filt Rate 30; Glucose Random 259 mg/dL (60-115); Potassium 5.6 mmol/l (3.3-5.1); Sodium 137 mmol/L (135-145); Total Protein 5.7 g/dL (6.5-8.0)
[2020-05-31 04:04] LABS: B Type Natriuretic Peptide 167 pg/mL (<100)
--- NOTE | 2020-05-31 04:11 | ECG_ITS ---
Test Reason : CODE Blood Pressure : / mmHG Vent. Rate : 081 BPM Atrial Rate : 081 BPM P-R Int : 292 ms QRS Dur : 126 ms QT Int : 396 ms P-R-T Axes : 059 -67 -05 degrees QTc Int : 460 ms Sinus rhythm with 1st degree A-V block Right bundle branch block Left anterior fascicular block Bifascicular block Lateral infarct , possibly acute ACUTE CA / STEMI Abnormal ECG When compared to the previous EKG of Lateral ST elevations with reciprocal changes present. Referred By: Micah Aviles Electronically Signed By:Kavin Hernandez
--- NOTE | 2020-05-31 04:39 | P.CONCC_ITS ---
History of Present Illness Data of Consult Service Date: 05/31/20 Requesting physician: Caitlyn Albarran Primary Care Provider: Mitchell Gleason MD HPI Reason for consult: Cardiac arrest 84-year-old male insulin-requiring type 2 diabetic with chronic stage III diabetic nephropathy admitted 8 days ago with COVID-19 bilateral pneumonitis with classic changes more prominent at the bases in both lungs who had been compensating up in the intermediate care unit and then noted to have a sudden cardiac arrest about a 20 minutes CPR with emergent intubation of course and EKG showing normal sinus rhythm with a significant 1st degree AV block a right bundle branch block configuration with increased RS ratio in anterior precordial leads V1 to V3 diminished R-wave progression laterally V4 to V6 the initial diffuse ST elevation now assume isoelectric line again and there are ST-T changes noted in the inferior distribution and bedside echocardiogram shows that the anterior distribution of the left ventricle including apex and septum moving normally and some portions also the anterior lateral wall but unfortunately cannot visualize the posterior wall mostly interference coming from the ventilator but right ventricle is normal with normal motion of the free wall and no evidence of dilatation I looked at the lung perfusion scan which of course is nonspecific and some of those defects might very well be matched with ventilatory defects and really lens nothing to this but it is looking less likely that this catastrophic event was a pulmonary embolism given the good performance of the right ventricle and then also he has got a central venous pressure of 3-4 He has profound metabolic acidosis with negative base excess of 14 presumably lactate but needs a Malin catheter because I am concerned with cardiac output and given the mixed venous oxygen saturation of only 54% and implying this is a low cardiac output certainly at least a class 3 or 4 hemodynamics and may actually even calculate out as consistent with cardiogenic shock and lastly troponin comes back at 34,000 I think confirming the likelihood that this was an acute inferior 0 posterolateral infarct with right bundle branch block and first-degree AV block To optimize support we completely weaned Kimo-Synephrine and he is now on Levophed with more adequate heart rate of about 80 and on an FiO2 of 100% he has got a saturation of 96% blood pressure is 96/40 with a mean of 60 and because of his accessory muscle use and increased diaphragmatic effort I elected to use of paralytic and it to help us maximize cardiac output allowing the ventilator to do most of his respiratory work The tip of the central venous pressure catheter is in the right atrium and appropriate his OG tube is below the diaphragm and the stomach and his endotracheal tube is right at the jimena Review of Systems Review of Systems: Yes unobtainable due to endotracheal tube PMFSH Past Medical History Medical History CKD stage 3 due to type 2 diabetes mellitus Diabetes type 2, uncontrolled Diabetic nephropathy associated with type 2 diabetes mellitus Diabetic polyneuropathy associated with type 2 diabetes mellitus Dyslipidemia Hypertension Hypoglycemia unawareness associated with type 2 diabetes mellitus residential (current) use of insulin Family History Family history: reviewed and not pertinent Surgical History Surgical History History of colon resection History of prostate surgery Hx of cholecystectomy Social History Social History Household Members: Family Housing: House Do you presently have visiting nurse or other home services: No Alcohol intake: never Smoking Status: Former smoker Tobacco Type: Cigarette Smoked in Last 30 Days: No Patient Interested in Nicotine Replacement: No Patient Given Instructions on How to Stop Smoking: No Second Hand Smoke Exposure: No Use of substances other than those prescribed or required for medical reasons: No Currently Displaying Signs/Symptoms of Drug Intoxication Withdrawal: No Have you been hit, kicked, punched, or otherwise hurt by someone within the past year? If so, by whom?: No Do you feel safe in your current relationship?: No Is there a partner from a previous relationship who is making you feel unsafe now?: No Are you made to feel afraid or neglected: No Advance Directives: No Advance Directives Information Provided: No Do you have thoughts of harming others: None Do you have a plan to hurt others: No Plan Recently lost weight without trying: No Current occupational status: employed Meds Allergies Allergy/AdvReac Type Severity Reaction Status Date / Time Unable to Assess Allergy Verified 05/23/20 16:11 Home Medications Medication Instructions Recorded Confirmed Type aspirin 81 mg tablet,delayed 81 mg PO DAILY 05/11/20 05/23/20 History release atorvastatin 20 mg tablet 20 mg PO DAILY 05/11/20 05/23/20 History blood sugar diagnostic #10 ea 05/11/20 05/11/20 History metformin 500 mg tablet 500 mg PO BID tab 05/11/20 05/23/20 History metoprolol succinate 50 mg 25 mg PO DAILY tab 05/11/20 05/23/20 History tablet,extended release 24 hr pen needle, diabetic 32 gauge x #50 ea 05/11/20 05/11/20 History sitagliptin [Januvia] 100 mg PO DAILY 05/23/20 05/23/20 History Physical Exam Vital Signs: Vital Signs: Last Vital Signs Temp 98.7 F 05/31/20 00:00 Pulse 67 05/31/20 02:38 Resp 27 H 05/31/20 02:38 BP 103/36 L 05/31/20 02:38 Pulse Ox 91 L 05/31/20 02:38 Body Mass Index 24.9 He did awaken at 1 point so he is currently on 50 mcg of propofol No visible neck vein distension but he has diminished bilateral carotid upstrokes consistent with diminished stroke work reserve but no murmurs or gallops and the bedside echo shows normal mitral and aortic valve with no significant calcification and certainly no pericardial effusion Chest x-ray shows extensive bilateral infiltrates Abdomen not distended not apparently tender no palpable organomegaly Skin is intact no livedo and no acrocyanosis Results Labs CBC & Chem 7: 05/28/20 06:28 05/31/20 03:10 Labs: BMP 05/31/20 03:10 Sodium 137 Potassium 5.6 H Chloride 102 Carbon Dioxide 14 L BUN 63 H Creatinine 2.09 H Calcium 10.0 D Liver Function 05/31/20 Range/Units 03:10 Total Bilirubin 0.6 (0.0-1.0) mg/dL AST 343 H (5-37) U/L ALT 210 H (0-40) U/L Alkaline Phosphatase 230 H D (39-117) U/L Albumin 2.8 L (3.5-5.0) g/dL Microbiology Microbiology Results: Microbiology 05/23/20 17:42 Blood - Venous Blood Culture - Final No growth after 5 days. 05/23/20 16:49 Blood - Venous Blood Culture - Final No growth after 5 days. Assessment and Plan (1) Acute respiratory failure with hypoxia: Status: Acute (2) Pneumonia due to COVID-19 virus: Status: Acute (3) Hypoglycemia unawareness associated with type 2 diabetes mellitus: Status: Acute (4) Hypertension: Status: Acute (5) Dyslipidemia: Status: Acute (6) Diabetic polyneuropathy associated with type 2 diabetes mellitus: Status: Acute (7) CKD stage 3 due to type 2 diabetes mellitus: Status: Acute (8) Acute respiratory distress syndrome (ARDS) due to 2019 novel coronavirus: Status: Acute (9) Cardiac arrest with successful resuscitation: Status: Acute (10) Acute ME, inferolateral wall: Status: Acute (11) Cardiogenic shock: Status: Acute (12) Metabolic acidosis: Status: Acute So we have an 84-year-old male longstanding insulin-requiring diabetes with diabetic nephropathy and neuropathy presenting with acute hypoxic respiratory failure due to bilateral COVID-19 pneumonitis and now complicated by an acute posterolateral myocardial infarction and status post cardiac arrest Is capable of waking up but the hemodynamics a poor indicating cardiogenic shock with low mixed venous oxygen saturation of 54% and current CVP is 3-4 and given the left heart situation I would not provide him with any additional fluid and continue support with Levophed and to maximize ventilator support of cardiac performance we paralyzed with rocuronium to remove his respiratory effort and is end-tidal CO2 did increase from 22-26 I believe indicating improved cardiac output Avoid amiodarone because of ARDS Lactic acidosis measured 8.7 does not reflect a septic issue this is purely on the basis of cardiogenic shock
[2020-05-31 04:46] LABS: Lactic Acid 8.7 mmol/L (0.5-2.0)
--- NOTE | 2020-05-31 05:29 | W.PM.CCHP ---
Procedures Central Line Placement Right IJ: Central Line Comments: Emergent Right internal jugular triple lumen central venous catheter placed in usual sterile conditions under ultrasound guidance for appropriate vascular access without immediate complications. Central line position verified with Chest XRAY. Consent for Procedure: Emergent-no informed consent obtained Time out performed: Yes Sterile Technique Used: Yes Patient placed on monitor/pulse ox: Yes prep: mask, gown, gloves and other (Respirator ) Central line prep: Chlorhexidine scrub Ultrasound used for placement: Yes Central line lumen inserted: triple Post procedure: sutured in place, good blood return, all ports aspirated, flushed, capped and sterile dressing applied Post procedure x-ray: tip of catheter in good position Patient tolerated procedure: well and no complications Complications: none
[2020-05-31 05:32] LABS: Hematocrit 29.5 % (42-52); Hemoglobin 9.6 g/dl (14.0-18.0); Mean Corpuscular HGB Conc 32.5 g/dl (31.0-36.0); Mean Corpuscular Hemoglobin 29.4 pg (27.0-33.0); Mean Corpuscular Volume 90.5 fL (80-98); Mean Platelet Volume 10.4 fL (9.4-12.4); NRBC Pct Auto 0.7 /100WBC (0.0-0.2); Platelet Count 416 X10*3/uL (160-400); Red Blood Count 3.26 X10*6/uL (4.60-5.80); Red Cell Distribution Width 14.5 % (11.0-16.0)
[2020-05-31 05:37] LABS: INTERNATIONAL NORM RATIO 1.2 (0.9-1.1); Prothrombin Time 14.1 SEC (10.8-13.0); White Blood Count 30.2 X10*3/uL (4.8-10.8)
--- NOTE | 2020-05-31 05:38 | PM.EVENT ---
Event Note Date of Service: 05/31/20 Event Note: Received a call from nurse the patient appears different, staring in to the Miky not responding to her verbal commands. Went to evaluate the patient, patient alert but not responding, while evaluating the patient awaiting vitals patient started radiating down on tele, incompletely went into cardiac arrest. CPR was initiated, ED physician intubated the patient, he received multiple rounds of epinephrine, bicarb x2, and calcium chloride x2 with achievement of ROSC - CPR was done for about 20 mins Patient was hemodynamically stabilized and sent to the ICU Sign-out made to Family were also notified of this by the ICU PA
[2020-05-31 05:39] LABS: PTT Heparin Drip 29.4 SEC (53-77.9)
[2020-05-31] MEDS: Heparin Sodium,Porcine/1/2NS 25,000 UNIT/250 ML IV.SOLN 10.11 UNIT IVCONT (05:50)
[2020-05-31 05:56] LABS: Band Neutrophils Percent 8 % (3-5); Lymphocytes Absolute Manual 0.9 X10*3/uL (0.6-4.8); Lymphocytes Percent Manual 3 % (20-40); Metamyelocytes Absolute 0.3 X10*3/uL; Metamyelocytes Percent 1 %; Myelocytes Absolute 0.3 X10*/uL; Myelocytes Percent 1 %; Neutrophils Absolute Manual 28.7 X10*3/uL (2.2-7.9); Neutrophils Percent Manual 87 % (45-73); Nucleated Red Blood Cells 2 /100WBC (0-0)
[2020-05-31 05:58] LABS: Alanine Aminotransferase 214 U/L (0-40); Albumin Level 2.8 g/dL (3.5-5.0); Alkaline Phosphatase 228 U/L (39-117); Anion Gap 20 (12-20); Aspartate Amino Transferase 320 U/L (5-37); Bilirubin Direct 0.3 mg/dL (0.0-0.5); Bilirubin Total 0.5 mg/dL (0.0-1.0); Blood Urea Nitrogen 67 mg/dL (9-16); Carbon Dioxide 19 mmol/L (22-29); Chloride 103 mmol/L (96-108); Creatinine Clr Calc Pharmacy 25.1; Estimated Glomerular Filt Rate 31; Glucose Random 262 mg/dL (60-115); Potassium 5.3 mmol/l (3.3-5.1); Sodium 137 mmol/L (135-145); Total Protein 5.7 g/dL (6.5-8.0)
[2020-05-31] MEDS: Phenylephrine HCL 20 MG in 0.9 % Sodium Chloride 250 ML 54.58 MG IVCONT ×2 (05:58→07:38)
[2020-05-31] MEDS: propofoL 1,000 MG/100 ML VIAL 21.66 MG IVCONT ×2 (05:58→10:37)
[2020-05-31 05:59] LABS: Large Platelet PRESENT; Platelet Estimate NORMAL (NORMAL); Platelet Morphology Comment NOTED; Polychromasia 1+; RBC Morphology NOTED
[2020-05-31 06:12] LABS: Reflex Lactate? Lactic Acid Added
[2020-05-31] MEDS: Rocuronium Bromide 50 MG/5 ML VIAL 35 MG IVPUSH (06:26)
[2020-05-31 07:24] LABS: Base Excess VBG -6.6 mmol/L; Blood Gas Serial # 5414; HCO3 VBG 20 mmol/L; PCO2 VBG 46 mmhg; PO2 VBG 44 mmhg; pH VBG 7.26 (7.32-7.43)
--- NOTE | 2020-05-31 07:25 | PC.NURSE ---
PT TO ICU S/P CODE BLUE ON IMC. INTUBATED ON FLOOR, ETT #7.5, 27 CM HEMAL. VENT SETTINGS AC 20/450/6/100%. TLC TO R IJ INSERTED BY GLUING MACHINE OPERATOR AUTOMATIC. OGT/DENG PLACED. CONFIRMED BY PCXR. SEDATED ON PROPOFOL GTT. 35 MG ROCURONIUM X1 GIVEN. LEVOPHED/NEOSYNEPHRINE GTT TITRATED TO MAINTAIN SBP>90, MAP 65. GLUING MACHINE OPERATOR AUTOMATIC/MD AWARE OF ALL CRITICAL LABS. EKG DONE. BEDSIDE ECHO DONE. HEPARIN GTT STARTED PER PROTOCOL, PTTHD TO BE DRAWN AT 1100. RESTRAINTS PLACED FOR SAFETY, INITIALLY REACHING FOR LINES/TUBES. SKIN INTACT. FAMILY UPDATED BY MD/GLUING MACHINE OPERATOR AUTOMATIC AND TALKED WITH PT THROUGH PHONE. AWARE OF PLAN OF CARE.
[2020-05-31] MEDS: 0.9 % Sodium Chloride Flush 3 ML SYRINGE IVFLUSH ×3 (07:35→23:26)
[2020-05-31 07:53] LABS: ~Lactic Acid-LAB USE ONLY 2.7 mmol/L (0.5-2.0)
[2020-05-31 07:53] LABS: Glucose, Whole Blood 148 mg/dL (60-115)
--- NOTE | 2020-05-31 09:06 | ECG_ITS ---
Test Reason : CARDIAC ARR, NSTEMI Blood Pressure : / mmHG Vent. Rate : 063 BPM Atrial Rate : 063 BPM P-R Int : 264 ms QRS Dur : 092 ms QT Int : 430 ms P-R-T Axes : 046 -54 028 degrees QTc Int : 440 ms Sinus rhythm with 1st degree A-V block Right bundle branch block Left anterior fascicular block Nonspecific ST abnormality Posterior infarct present now Abnormal ECG When compared with ECG of 31-MAY-2020 04:11, Incomplete right bundle branch block has replaced Right bundle branch block Criteria for Lateral infarct are no longer Present [facility]: [facility] Electron[facility] Signed By:Kavin Hernandez
[2020-05-31 09:22] LABS: Reflex Lactate? 2 Y
[2020-05-31] MEDS: Albumin Human 25 % 100 ML IV ×2 (09:26→10:39)
[2020-05-31] MEDS: Lactated Ringers 1,000 ML 250 ML IVCONT (09:27)
--- NOTE | 2020-05-31 09:30 | CA_ITS ---
Transthoracic Echocardiogram Patient (Last, First, Middle): Luz To, Gender: Male Date of : 1935 Age: 84 Procedure Date: 05/31/2020 Procedure Type: Transthoracic Echocardiogram Location: ICU Height: 170.18 cm Weight: 72.12 kg BSA: 1.83 m2 Heart Rate: bpm BP: 112 / 39 mmHg Shank Faker: Referring MD: Kavin Hernandez MD Irrigation Manager: Kavin Hernandez MD Symptoms: NSTEMI Study Quality: Fair ECG Rhythm: Sinus Conclusions: - The left ventricular systolic function is mild to moderately decreased. The visually estimated ejection fraction is between 35-40%. - The entire lateral wall is akinetic. - Normal right ventricular cavity size and systolic function. - The left atrium is severely dilated. - PASP is 22 mm Hg + RA pressure. Findings Left Ventricle Normal left ventricular cavity size. There is mildly increased left ventricular wall thickness. The left ventricular systolic function is mild to moderately decreased. The visually estimated ejection fraction is between 35-40%. There is evidence of regional wall motion abnormalities. Diastolic function is indeterminate on the basis of available data. Spectral Doppler is indicative of a pseudonormal filling pattern. E/E prime ratio is between 8 and 15 consistent with indeterminate filling pressures. Wall Motion Rest Echo Findings The entire lateral wall is akinetic. Right Ventricle Normal right ventricular cavity size and systolic function. Atria The left atrium is severely dilated. Aortic Valve The aortic valve structure and function is likely normal. There is no aortic valve stenosis. There is no aortic valve regurgitation. Mitral Valve The mitral valve appears normal. There is trace mitral valve regurgitation. There is no mitral valve stenosis. Pulmonic Valve The pulmonic valve was not well visualized. Tricuspid Valve Normal tricuspid valve structure. There is trace tricuspid valve regurgitation. Indeterminate right atrial pressure. PASP is 22 mm Hg + RA pressure. Great Vessels The aorta was not well visualized. The pulmonary artery was not well visualized. Venous The inferior vena cava is normal in size and collapses less than 50% with inspiration. Pericardium/Pleural There is no evidence of pericardial effusion. Prior Study Comparison No prior study available for comparison. Measurements 2D Linear Measurements IVSd: 1.23 0.6-0.9/0.6-1.0 cm LVIDd: 2.74 3.9-5.3/4.2-5.9 cm LVIDd Index: 1.50 2.4-3.2/2.2-3.1 cm/m2 LVIDs: 1.98 2.0-3.6 cm LVPWd: 1.27 0.7-1.1 cm Ao Root: 2.60 2.1-3.5 cm LA Diam: 2.80 2.7-3.8/3.0-4.0 cm LAIDs Index: 1.53 1.5-2.3 cm/m2 LV Mass: 128.24 67-162/88-224 g LV Mass Index: 70.08 43-95/49-115 g/m2 LVOT Diam: 2.00 3.0+(-)1.3 cm 2D Systolic Function EF 4C: 64.00 >55% EF 2C: 51.70 >55% Mitral Valve MV Pk E: 1.02 MV PK A: 0.78 MV Decel Time: 165.00 E/A: 1.30 E'Lateral: 13.10 E'Medial: 10.20 E/E' Med: 10.00 E/E' Lat: 7.80 PHT: 48.00 MVA PHT: 4.58 Decel Chase: 6.16 Aortic Valve AoV Pk Lion: 1.19 AoV Mn Lion: 0.87 AoV VTI: 0.28 AoV Pk Grad: 6.00 Aov Mn Grad: 3.00 JOSE R Cont.VTI: 2.20 LVOT LVOT Pk Lion: 0.86 LVOT Mn Lion: 0.55 LVOT VTI: 0.20 LVOT Pk Grad: 3.00 LVOT Mn Grad: 2.00 LVOT Diam: 2.00 LVOT Area: 3.14 Diastolic Function MV Pk E: 1.02 MV Pk A: 0.78 E/A: 1.30 E'Medial: 10.20 E/E' Med: 10.00 E' Laterial: 13.10 E/E' Lat: 7.80 Tricuspid Valve TR Pk Grad: 17.00 RA Press: 3.00 RVSP: 20.00 Great Vessels Aorta Ao Root-2D: 2.60 2.0-3.7 cm Pulmonary Valve PV Pk Lion: 1.00 Peak PV Grad: 4.00 Updated in Other Vendor System with Status of Final Kavin Hernandez MD electronically signed on 05/31/2020 11:26:32 AM with status of Final
[2020-05-31] MEDS: dexAMETHasone sod phosphate 4 MG/ML VIAL 6 MG IVPUSH (09:54)
[2020-05-31] MEDS: Aspirin Enteric Coated 81 MG TABLET.DR PO (09:55)
[2020-05-31 10:15] LABS: ~Lactic Acid-LAB USE ONLY 2.1 mmol/L (0.5-2.0)
--- NOTE | 2020-05-31 10:42 | P.CONCA_ITS ---
History of Present Illness History of Present Illness Date of Service: 05/31/20 Requesting physician: Ron Cordova Chief complaint: Covid PNA, NSTEMI Narrative: 84-year-old gentleman who was admitted to [facility] with COVID-19 infection and hypoxia. Overnight he had PEA arrest and he was intubated. He is currently sedated intubated. His blood workup has shown significant rise in troponin level. His EKG at the time of cardiac arrest showed posterolateral WY. repeat ECG in the morning is showing changes consistent with posterior infarct with loss of R-waves in lateral leads. Patient is currently sedated and intubated. I had a discussion with the hospitalist taking care of him and it appears that he was hypoxic requiring high-flow oxygen over the last few days. He was sick with COVID-19 for approximately 2 weeks. He also had elevated D-dimers and an intermediate risk V/Q scan. Currently he is on vasopressors including Levophed as well as phenylephrine. His CVP is approximately 3. He is on heparin drip appropriately. I personally reviewed his angiogram at [facility] done in 2011 which showed [id number] disease in the right coronary artery. He had left anterior descending artery PCI in the past with the InStent restenoses for which she underwent PCI in 2007. No previous echocardiograms were done at [facility]. 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 Family History Family history: reviewed and not pertinent Surgical History Surgical History History of colon resection History of prostate surgery Hx of cholecystectomy Social History Social History Household Members: Family Housing: House Do you presently have visiting nurse or other home services: No Alcohol intake: never Smoking Status: Former smoker Tobacco Type: Cigarette Smoked in Last 30 Days: No Patient Interested in Nicotine Replacement: No Patient Given Instructions on How to Stop Smoking: No Second Hand Smoke Exposure: No Use of substances other than those prescribed or required for medical reasons: No Currently Displaying Signs/Symptoms of Drug Intoxication Withdrawal: No Have you been hit, kicked, punched, or otherwise hurt by someone within the past year? If so, by whom?: No Do you feel safe in your current relationship?: No Is there a partner from a previous relationship who is making you feel unsafe now?: No Are you made to feel afraid or neglected: No Advance Directives: No Advance Directives Information Provided: No Do you have thoughts of harming others: None Do you have a plan to hurt others: No Plan Recently lost weight without trying: No Current occupational status: employed Meds Allergies Allergy/AdvReac Type Severity Reaction Status Date / Time Unable to Assess Allergy Verified 05/23/20 16:11 Home Medications Medication Instructions Recorded Confirmed Type aspirin 81 mg tablet,delayed 81 mg PO DAILY 05/11/20 05/23/20 History release atorvastatin 20 mg tablet 20 mg PO DAILY 05/11/20 05/23/20 History blood sugar diagnostic #10 ea 05/11/20 05/11/20 History metformin 500 mg tablet 500 mg PO BID tab 05/11/20 05/23/20 History metoprolol succinate 50 mg 25 mg PO DAILY tab 05/11/20 05/23/20 History tablet,extended release 24 hr pen needle, diabetic 32 gauge x #50 ea 05/11/20 05/11/20 History sitagliptin [Januvia] 100 mg PO DAILY 05/23/20 05/23/20 History Physical Exam Vital Signs: Vital Signs: Last Vital Signs Temp 98.1 F 05/31/20 10:00 Pulse 87 05/31/20 10:00 Resp 22 H 05/31/20 10:00 BP 117/39 L 05/31/20 10:00 Pulse Ox 100 05/31/20 10:00 Body Mass Index 24.9 GENERAL APPEARANCE: Sedated ventilated. HEENT: unremarkable. HEAD: normocephalic, atraumatic. NECK/THYROID: no carotid bruit, right internal jugular triple-lumen catheter. CVP 3 cm water SKIN: no suspicious lesions, warm and dry. HEART: no murmurs, regular rate and rhythm, S1, S2 normal. LUNGS: clear to auscultation bilaterally. ABDOMEN: Soft, not distended. EXTREMITIES: no clubbing, cyanosis, or edema. PERIPHERAL PULSES: equal. NEUROLOGIC: Sedated and ventilated. Results Labs and Meds Result diagrams: 05/31/20 05:10 05/31/20 05:10 Lab results: Laboratory Results - last 24 hr 05/30/20 05/30/20 05/30/20 15:24 15:24 15:36 WBC RBC Hgb Hct MCV MCH MCHC RDW Plt Count MPV Immature Gran % (Auto) Neut % (Auto) Lymph % (Auto) Imperial % (Auto) Eos % (Auto) Baso % (Auto) Lymph # (Auto) Imperial # (Auto) Eos # (Auto) Baso # (Auto) Abs Immat Gran (auto) Absolute Neuts (auto) Absolute Nucleated RBC Nucleated RBC % (auto) Neutrophils % (Manual) Band Neutrophils % Lymphocytes % (Manual) Metamyelocytes % Myelocytes % Abs Neuts (Manual) Lymphocytes # (Manual) Metamyelocytes # Myelocytes # Nucleated RBCs Platelet Estimate Large Platelets Plt Morphology Comment RBC Morphology Polychromasia PT INR PTT (Heparin Protocol) D-Dimer 1280 ABG pH ABG pCO2 ABG pO2 ABG HCO3 ABG O2 Saturation ABG Base Excess VBG pH VBG pCO2 VBG pO2 VBG HCO3 VBG O2 Saturation VBG Base Excess Oxygen Given Sodium Potassium Chloride Carbon Dioxide Anion Gap BUN Creatinine Estim Creat Clear Calc Estimated GFR POC Glucose 272 H Random Glucose Lactic Acid Lactic Acid Fup @ 2Hr Lactic Acid Fup @ 4Hr Calcium Total Bilirubin Direct Bilirubin AST ALT Alkaline Phosphatase Troponin I High Sens C-Reactive Protein 3.71 H B-Natriuretic Peptide Total Protein Albumin 05/30/20 05/31/20 05/31/20 19:44 01:32 03:10 WBC RBC Hgb Hct MCV MCH MCHC RDW Plt Count MPV Immature Gran % (Auto) Neut % (Auto) Lymph % (Auto) Imperial % (Auto) Eos % (Auto) Baso % (Auto) Lymph # (Auto) Imperial # (Auto) Eos # (Auto) Baso # (Auto) Abs Immat Gran (auto) Absolute Neuts (auto) Absolute Nucleated RBC Nucleated RBC % (auto) Neutrophils % (Manual) Band Neutrophils % Lymphocytes % (Manual) Metamyelocytes % Myelocytes % Abs Neuts (Manual) Lymphocytes # (Manual) Metamyelocytes # Myelocytes # Nucleated RBCs Platelet Estimate Large Platelets Plt Morphology Comment RBC Morphology Polychromasia PT INR PTT (Heparin Protocol) D-Dimer ABG pH ABG pCO2 ABG pO2 ABG HCO3 ABG O2 Saturation ABG Base Excess VBG pH VBG pCO2 VBG pO2 VBG HCO3 VBG O2 Saturation VBG Base Excess Oxygen Given Sodium 137 Potassium 5.6 H Chloride 102 Carbon Dioxide 14 L Anion Gap 27 H BUN 63 H Creatinine 2.09 H Estim Creat Clear Calc 25.0 Estimated GFR 30 POC Glucose 318 H 85 Random Glucose 259 H Lactic Acid Lactic Acid Fup @ 2Hr Lactic Acid Fup @ 4Hr Calcium 10.0 D Total Bilirubin 0.6 Direct Bilirubin AST 343 H ALT 210 H Alkaline Phosphatase 230 H D Troponin I High Sens C-Reactive Protein B-Natriuretic Peptide Total Protein 5.7 L Albumin 2.8 L 05/31/20 05/31/20 05/31/20 03:10 03:10 03:27 WBC RBC Hgb Hct MCV MCH MCHC RDW Plt Count MPV Immature Gran % (Auto) Neut % (Auto) Lymph % (Auto) Imperial % (Auto) Eos % (Auto) Baso % (Auto) Lymph # (Auto) Imperial # (Auto) Eos # (Auto) Baso # (Auto) Abs Immat Gran (auto) Absolute Neuts (auto) Absolute Nucleated RBC Nucleated RBC % (auto) Neutrophils % (Manual) Band Neutrophils % Lymphocytes % (Manual) Metamyelocytes % Myelocytes % Abs Neuts (Manual) Lymphocytes # (Manual) Metamyelocytes # Myelocytes # Nucleated RBCs Platelet Estimate Large Platelets Plt Morphology Comment RBC Morphology Polychromasia PT INR PTT (Heparin Protocol) D-Dimer ABG pH 7.15 L* ABG pCO2 38 ABG pO2 76 L ABG HCO3 13 L ABG O2 Saturation 90.1 ABG Base Excess -14.6 VBG pH 7.13 L* VBG pCO2 43 VBG pO2 41 VBG HCO3 14 VBG O2 Saturation 54.1 VBG Base Excess -14.4 Oxygen Given 100% Sodium Potassium Chloride Carbon Dioxide Anion Gap BUN Creatinine Estim Creat Clear Calc Estimated GFR POC Glucose Random Glucose Lactic Acid Lactic Acid Fup @ 2Hr Lactic Acid Fup @ 4Hr Calcium Total Bilirubin Direct Bilirubin AST ALT Alkaline Phosphatase Troponin I High Sens 19600.0 H D C-Reactive Protein B-Natriuretic Peptide 167 H Total Protein Albumin 05/31/20 05/31/20 05/31/20 03:59 05:10 05:10 WBC Cancelled RBC Cancelled Hgb Cancelled Hct Cancelled MCV Cancelled MCH Cancelled MCHC Cancelled RDW Cancelled Plt Count Cancelled MPV Cancelled Immature Gran % (Auto) Cancelled Neut % (Auto) Cancelled Lymph % (Auto) Cancelled Imperial % (Auto) Cancelled Eos % (Auto) Cancelled Baso % (Auto) Cancelled Lymph # (Auto) Cancelled Imperial # (Auto) Cancelled Eos # (Auto) Cancelled Baso # (Auto) Cancelled Abs Immat Gran (auto) Cancelled Absolute Neuts (auto) Cancelled Absolute Nucleated RBC Cancelled Nucleated RBC % (auto) Cancelled Neutrophils % (Manual) Band Neutrophils % Lymphocytes % (Manual) Metamyelocytes % Myelocytes % Abs Neuts (Manual) Lymphocytes # (Manual) Metamyelocytes # Myelocytes # Nucleated RBCs Platelet Estimate Large Platelets Plt Morphology Comment RBC Morphology Polychromasia PT INR PTT (Heparin Protocol) D-Dimer ABG pH ABG pCO2 ABG pO2 ABG HCO3 ABG O2 Saturation ABG Base Excess VBG pH VBG pCO2 VBG pO2 VBG HCO3 VBG O2 Saturation VBG Base Excess Oxygen Given Sodium 137 Potassium 5.3 H Chloride 103 Carbon Dioxide 19 L Anion Gap 20 BUN 67 H Creatinine 2.08 H Estim Creat Clear Calc 25.1 Estimated GFR 31 POC Glucose Random Glucose 262 H Lactic Acid 8.7 H* Lactic Acid Fup @ 2Hr Lactic Acid Fup @ 4Hr Calcium 9.0 D Total Bilirubin 0.5 Direct Bilirubin 0.3 AST 320 H ALT 214 H Alkaline Phosphatase 228 H Troponin I High Sens C-Reactive Protein B-Natriuretic Peptide Total Protein 5.7 L Albumin 2.8 L 05/31/20 05/31/20 05/31/20 05:10 05:10 07:15 WBC 30.2 H* RBC 3.26 L Hgb 9.6 L Hct 29.5 L MCV 90.5 MCH 29.4 MCHC 32.5 RDW 14.5 Plt Count 416 H MPV 10.4 Immature Gran % (Auto) Cancelled Neut % (Auto) Cancelled Lymph % (Auto) Cancelled Imperial % (Auto) Cancelled Eos % (Auto) Cancelled Baso % (Auto) Cancelled Lymph # (Auto) Cancelled Imperial # (Auto) Cancelled Eos # (Auto) Cancelled Baso # (Auto) Cancelled Abs Immat Gran (auto) Cancelled Absolute Neuts (auto) Cancelled Absolute Nucleated RBC 0.210 H Nucleated RBC % (auto) 0.7 H Neutrophils % (Manual) 87 H Band Neutrophils % 8 H Lymphocytes % (Manual) 3 L Metamyelocytes % 1 Myelocytes % 1 Abs Neuts (Manual) 28.7 H Lymphocytes # (Manual) 0.9 Metamyelocytes # 0.3 Myelocytes # 0.3 Nucleated RBCs 2 H Platelet Estimate NORMAL Large Platelets PRESENT Plt Morphology Comment NOTED RBC Morphology NOTED Polychromasia 1+ PT 14.1 H INR 1.2 H PTT (Heparin Protocol) 29.4 L D-Dimer ABG pH ABG pCO2 ABG pO2 ABG HCO3 ABG O2 Saturation ABG Base Excess VBG pH VBG pCO2 VBG pO2 VBG HCO3 VBG O2 Saturation VBG Base Excess Oxygen Given Sodium Potassium Chloride Carbon Dioxide Anion Gap BUN Creatinine Estim Creat Clear Calc Estimated GFR POC Glucose Random Glucose Lactic Acid Lactic Acid Fup @ 2Hr 2.7 H* Lactic Acid Fup @ 4Hr Calcium Total Bilirubin Direct Bilirubin AST ALT Alkaline Phosphatase Troponin I High Sens C-Reactive Protein B-Natriuretic Peptide Total Protein Albumin 05/31/20 05/31/20 05/31/20 07:15 07:38 09:25 WBC RBC Hgb Hct MCV MCH MCHC RDW Plt Count MPV Immature Gran % (Auto) Neut % (Auto) Lymph % (Auto) Imperial % (Auto) Eos % (Auto) Baso % (Auto) Lymph # (Auto) Imperial # (Auto) Eos # (Auto) Baso # (Auto) Abs Immat Gran (auto) Absolute Neuts (auto) Absolute Nucleated RBC Nucleated RBC % (auto) Neutrophils % (Manual) Band Neutrophils % Lymphocytes % (Manual) Metamyelocytes % Myelocytes % Abs Neuts (Manual) Lymphocytes # (Manual) Metamyelocytes # Myelocytes # Nucleated RBCs Platelet Estimate Large Platelets Plt Morphology Comment RBC Morphology Polychromasia PT INR PTT (Heparin Protocol) D-Dimer ABG pH ABG pCO2 ABG pO2 ABG HCO3 ABG O2 Saturation ABG Base Excess VBG pH 7.26 L VBG pCO2 46 VBG pO2 44 VBG HCO3 20 VBG O2 Saturation 70.0 VBG Base Excess -6.6 Oxygen Given Sodium Potassium Chloride Carbon Dioxide Anion Gap BUN Creatinine Estim Creat Clear Calc Estimated GFR POC Glucose 148 H Random Glucose Lactic Acid Lactic Acid Fup @ 2Hr Lactic Acid Fup @ 4Hr 2.1 H* Calcium Total Bilirubin Direct Bilirubin AST ALT Alkaline Phosphatase Troponin I High Sens C-Reactive Protein B-Natriuretic Peptide Total Protein Albumin Imaging Radiologist's impression: Impressions Pulmonary Perfusion Imaging 05/30/20 00:00 IMPRESSION: Intermediate probability for pulmonary embolism. Chest X-Ray 05/31/20 03:10 IMPRESSION: Endotracheal tube terminating less than 1 cm above the jimena. Suggest retraction. Right internal jugular central venous catheter terminates near the cavoatrial junction. No pneumothorax. Worsening bilateral airspace opacities. This critical result was discussed with Rosa Maria Najera APRN by telephone at 05/31/2020 3:44 AM and it was ascertained that the content and urgency of the report was understood at the time of direct communication. Assessment and Plan (1) Acute respiratory distress syndrome (ARDS) due to 2019 novel coronavirus: Status: Acute (2) NSTEMI (non-ST elevated myocardial infarction): Status: Acute (3) Shock: Status: Acute (4) CKD stage 3 due to type 2 diabetes mellitus: Status: Acute (5) Cardiac arrest: Status: Acute 84-year-old gentleman who is currently sedated and ventilated who presented with COVID-19 infection and hypoxia for which she was requiring high- flow oxygen. It appears he was hypoxic in 70s when he had PEA arrest. He was resuscitated for 15 minutes with return of spontaneous circulation. He has been sedated and ventilated right now he is on vasopressin as well as Levophed. His cardiac enzymes has shown significant rise in troponin level and I think he had WY. His ECG showing posterior infarct like changes as well as poor lateral R- wave progression. His CVP is 3. I think we should give him some IV fluids and try to back off on his phenylephrine. Also propofol may not be the best thing to use in him because it may lead to hypotension. His white cell counts are elevated but he is also on dexamethasone for the COVID-19. He is on heparin drip. Will check echocardiogram to assess LV and right ventricular function. I think given COVID-19 infection, kidney disease, hypoxia preceding the event (pointing to her severity of COVID-19) and absence of ST changes now - I think we should take a conservative route and treat him medically for the myocardial infarction. I will review his echocardiogram to make sure he does not have mitral regurgitation or severe RV dysfunction. We will follow along with you. Please page if any questions arise. Thank you for allowing me to participate in the care of your patient. Please feel free to contact me if you have any questions.
[2020-05-31] MEDS: DOPamine HCL/D5W 400 MG/250 ML PLAST..BAG 13.54 MG IVCONT (10:54)
--- NOTE | 2020-05-31 11:01 | MHC.CLN ---
RECOMMEND PROMOTE AT MAX GOAL RATE 50CC/HR TO PROVIDE 1200KCALS (1770KCALS WITH SEDATION; 24.6KCALS/KG), 75G PROTEIN (1.0G/KG), 1006CC FREE WATER FROM FORMULA MONITOR TOLERANCE, RESIDUALS AND LYTES SEE ALSO CLINICAL NUTRITION ASSESSMENT
--- NOTE | 2020-05-31 11:07 | ECG_ITS ---
Test Reason : ? RHYTHM CHANGES Blood Pressure : / mmHG Vent. Rate : 062 BPM Atrial Rate : 092 BPM P-R Int : 000 ms QRS Dur : 108 ms QT Int : 464 ms P-R-T Axes : 035 -47 037 degrees QTc Int : 470 ms Sinus rhythm with 2nd degree A-V block (Mobitz I) with Premature ventricular complexes or Fusion complexes Right bundle branch block Left anterior fascicular block Possible Lateral infarct , age undetermined Posterior infarct with precordial ST depressions. Abnormal ECG When compared to the previous EKG of Mobitz I AV block present. Precordial ST depressions present. Referred By: Micah Holman Electronically Signed By:Kavin Hernandez
[2020-05-31 11:41] LABS: Glucose, Whole Blood 213 mg/dL (60-115)
[2020-05-31] MEDS: fentaNYL citrate/NS 1,000 MCG/100 ML PLAST..BAG 2.5 MCG IVCONT (11:45)
[2020-05-31] MEDS: Clopidogrel Bisulfate 300 MG TABLET PO ×2 (11:45)
[2020-05-31] MEDS: Insulin Lispro 100 UNIT/ML 3 ML VIAL SUBCUT ×2 (11:45→17:32)
[2020-05-31] MEDS: Chlorhexidine Gluc Oral Rinse 15 ML MOUTHWASH BUCCAL ×2 (11:47→20:15)
[2020-05-31 12:06] LABS: PTT Heparin Drip 118.8 SEC (53-77.9)
[2020-05-31 13:46] LABS: PTT Heparin Drip 87.7 SEC (53-77.9)
--- NOTE | 2020-05-31 14:19 | MHC.CM.PN ---
Patient transferred to ICU overnight after coding. Patient is currently intubated/vented. Original discharge plan was to return home with son and [facility]. Continue to monitor for d/c needs.
--- NOTE | 2020-05-31 15:28 | PM.CCN ---
Critical Care Event Note Summary Code activated: No Narrative: 84-year-old gentleman with underlying coronary artery disease, remote NH, hypertension hospitalized since 05/23/2020 with COVID-19 acute hypoxic respiratory failure with high FiO2 requirements further complicated by cardiac arrest at around 1:20 a.m. on 05/31/2020, initially bradycardia/asystole/PEA, later V-tach/VFib with returned spontaneous circulation after approximately 15 minutes of CPR intubated during the CPR. Noted to have a new lateral wall motion abnormality on echo this a.m. with an acute NH likely being a sentinel event. Evaluated by Cardiology service (Dr. Hernandez) and discussed with him - patient is not a candidate for interventional management. Continues on heparin drip, loaded with Plavix, continues on ventilatory support. Critical Care Time (minutes): 45
[2020-05-31] MEDS: propofoL 1,000 MG/100 ML VIAL 10.83 MG IVCONT (15:53)
[2020-05-31 17:34] LABS: Glucose, Whole Blood 279 mg/dL (60-115)
--- NOTE | 2020-05-31 18:03 | PC.NURSE ---
Afebrile. Positive cough and gag, no pain response, pupils 3mm PERRLA. Cardio at bedside, echo completed - Phenylephrine titrated off per cardio - BP soft - Levophed titrated up to 0.4 per MD - MD aware of order max rate of 0.3mcg/kg/min. Patient SR - converted to Mobitz type I at 0815 - EKG confirmed, HR down to 40-50's - MD aware, pacer pads applied. Dopamine gtt added and titrated per EMAR. Propofol gtt titrated down to 35mcg/kg/min and Fentanyl gtt added. HR currently 60's. PTTHD critically high at 118.8 - gtt held and resumed at current rate of 10unit/kg/hr - next PTTHD ordered for 175. Aspirin and plavix ordered and administered. CVP 3-4 - LR at 250cc/hr [id number] and 200cc albumin ordered and administered. Lower extremity ultrasound completed. ETT 7.5, 27cm at the lip - ETT pulled back by RT to 25cm per Dr Cordova. Vent setting AC 20, 450, peep increased from 6 to 10 per MD, FIO2 decreased to 80% - O2 sat low/mid 90's. OGT clamped - coffee ground secretions noted - MD notified - no new orders at this time. POC 200's - currently on Humalog SS and Lantus at bedtime. No BM. Malin patent producing yellow urine, total 900cc [id number]. Skin cool, no skin integrity concerns. Repositioned Q2HR. Family updated by MD. Lactic down to 2.1 - MD aware - no followup lactic draws per Dr Cordova. Will continue to monitor.
[2020-05-31 20:11] LABS: PTT Heparin Drip 89.2 SEC (53-77.9)
[2020-05-31] MEDS: DOPamine HCL/D5W 400 MG/250 ML PLAST..BAG 27.08 MG IVCONT (20:13)
[2020-05-31] MEDS: propofoL 1,000 MG/100 ML VIAL 15.16 MG IVCONT (20:14)
[2020-05-31] MEDS: Famotidine/PF 20 MG/2 ML VIAL IVPUSH (20:15)
[2020-05-31 21:34] LABS: Glucose, Whole Blood 268 mg/dL (60-115)
[2020-05-31] MEDS: Insulin Glargine,Hum.rec.anlog 100 UNIT/ML 10 ML VIAL 30 UNIT SUBCUT (22:00)
[2020-05-31] MEDS: fentaNYL citrate/NS 1,000 MCG/100 ML PLAST..BAG 10 MCG IVCONT (22:11)
[2020-06-01] VITALS (30 sets, daily range): BP systolic 93–149; BP diastolic 28–57; PULSE 61–101; RESP 20–23; TEMP 35.8–36.8; O2SAT 86–100
[2020-06-01 00:49] LABS: Glucose, Whole Blood 284 mg/dL (60-115)
[2020-06-01] MEDS: Insulin Lispro 100 UNIT/ML 3 ML VIAL SUBCUT ×4 (00:50→17:28)
[2020-06-01] MEDS: propofoL 1,000 MG/100 ML VIAL 15.16 MG IVCONT ×2 (01:10→07:09)
[2020-06-01 02:47] LABS: PTT Heparin Drip 75.1 SEC (53-77.9)
[2020-06-01] MEDS: Chlorhexidine Gluc Oral Rinse 15 ML MOUTHWASH BUCCAL ×3 (05:46→20:00)
[2020-06-01] MEDS: DOPamine HCL/D5W 400 MG/250 ML PLAST..BAG 27.08 MG IVCONT (06:01)
[2020-06-01] MEDS: Heparin Sodium,Porcine/1/2NS 25,000 UNIT/250 ML IV.SOLN 5.78 UNIT IVCONT (06:01)
[2020-06-01 06:46] LABS: Base Excess VBG -7.2 mmol/L; HCO3 VBG 20 mmol/L; Oxygen Saturation VBG 79.9 %; PCO2 VBG 49 mmhg; PO2 VBG 52 mmhg; pH VBG 7.23 (7.32-7.43)
[2020-06-01 06:55] LABS: INTERNATIONAL NORM RATIO 1.2 (0.9-1.1); Prothrombin Time 13.8 SEC (10.8-13.0)
[2020-06-01 06:59] LABS: Basophils Percent Auto 0.2 % (0-2); Hematocrit 27.6 % (42-52); Hemoglobin 8.9 g/dl (14.0-18.0); Imm Gran Abs Auto 0.74 X10*3/uL (0.00-0.03); Imm Gran Pct Auto 4.5 % (0.0-0.4); Lymphocytes Absolute Auto 0.4 X10*3/uL (1.2-4.9); Lymphocytes Percent Auto 2.5 % (20-40); MANUAL DIFF FLAG SCAN; Mean Corpuscular HGB Conc 32.2 g/dl (31.0-36.0); Mean Corpuscular Hemoglobin 29.3 pg (27.0-33.0); Mean Corpuscular Volume 90.8 fL (80-98); Mean Platelet Volume 10.6 fL (9.4-12.4); Monocytes Absolute Auto 0.7 X10*3/uL (0.1-1.2); Monocytes Percent Auto 4.1 % (2-11); NRBC Pct Auto 0.4 /100WBC (0.0-0.2); Neutrophils Absolute Auto 14.6 X10*3/uL (2.0-8.3); Neutrophils Percent Auto 88.7 % (45-73); Platelet Count 341 X10*3/uL (160-400); Red Blood Count 3.04 X10*6/uL (4.60-5.80); Red Cell Distribution Width 14.6 % (11.0-16.0); SCAN SMEAR FLAG 1; White Blood Count 16.5 X10*3/uL (4.8-10.8)
[2020-06-01] MEDS: fentaNYL citrate/NS 1,000 MCG/100 ML PLAST..BAG 10 MCG IVCONT ×2 (07:09→18:26)
[2020-06-01] MEDS: 0.9 % Sodium Chloride Flush 3 ML SYRINGE IVFLUSH ×2 (07:09→14:40)
[2020-06-01 07:14] LABS: Glucose, Whole Blood 258 mg/dL (60-115)
--- NOTE | 2020-06-01 07:14 | PC.NURSE ---
Shift eval 7p-7a - Patient remains intubated on AC settings - Lynn PA order to titrated own O2 if possible and go down on peep. Titrated down Fio2 from 80% to 40%. Peep down from 10 to 5. Patient tolerated, O2sat low 90's. In-line secretions small amt cream (scant blood tinge at 7pm, but then cleared up) < Dr Cordova made aware. Small cuff link noted in ETT - RT called to bedside - inserted air to cuff. Aspirated OG tube Q4H - small amt coffee ground in tube, no new emesis noted w/ aspiration. Titrating heparin drip per protocol. Able to titrate levo down - see IV flow sheet. Repos Q2H. No changes in sedation - Fentanyl & propofol.
[2020-06-01 07:28] LABS: Alanine Aminotransferase 166 U/L (0-40); Albumin Level 3.2 g/dL (3.5-5.0); Alkaline Phosphatase 178 U/L (39-117); Aspartate Amino Transferase 152 U/L (5-37); Bilirubin Direct 0.8 mg/dL (0.0-0.5)
[2020-06-01 07:34] LABS: Alanine Aminotransferase 173 U/L (0-40); Albumin Level 3.3 g/dL (3.5-5.0); Alkaline Phosphatase 186 U/L (39-117); Anion Gap 19 (12-20); Aspartate Amino Transferase 158 U/L (5-37); Bilirubin Total 0.9 mg/dL (0.0-1.0); Blood Urea Nitrogen 77 mg/dL (9-16); Calcium 7.7 mg/dL (8.4-10.2); Carbon Dioxide 20 mmol/L (22-29); Chloride 107 mmol/L (96-108); Creatinine Clr Calc Pharmacy 17.5; Estimated Glomerular Filt Rate 20; Glucose Random 279 mg/dL (60-115); Magnesium 2.3 mg/dL (1.6-2.6); Phosphorus 6.3 mg/dL (2.7-4.5); Potassium 5.2 mmol/l (3.3-5.1); Sodium 141 mmol/L (135-145)
[2020-06-01 08:28] LABS: SLIDE REVIEW VERIFIED
--- NOTE | 2020-06-01 09:46 | MHC.CLN ---
F/U RECOMMEND PROMOTE AT MAX GOAL RATE 60CC/HR TO PROVIDE 1440KCALS (1840KCALS WITH SEDATION; 25.5KCALS/KG), 90G PROTEIN (1.25G/KG), 1208CC FREE WATER FROM FORMULA MONITOR TOLERANCE, RESIDUALS AND LYTES
[2020-06-01] MEDS: Clopidogrel Bisulfate 75 MG TABLET PO (09:49)
[2020-06-01] MEDS: Famotidine/PF 20 MG/2 ML VIAL IVPUSH ×2 (09:49→20:00)
[2020-06-01] MEDS: dexAMETHasone sod phosphate 4 MG/ML VIAL 6 MG IVPUSH (09:49)
--- NOTE | 2020-06-01 09:52 | P.PNCA_ITS ---
Subjective Subjective Date of Service: 06/01/20 Principal diagnosis: Resp failure, PEA arrest, cardiogenic shock, NSTEMI Interval history: Cardiology follow up shock, NSTEMI. Pt seen at 0915. Intubated, sedated, in ICU. Unable to give subjective exam. On Dopamine and norepinephrine infusion for BP support. On Heparin drip for NH. Physical Exam Vital Signs: Last Vital Signs Temp 96.6 F L 06/01/20 08:00 Pulse 63 06/01/20 09:00 Resp 20 06/01/20 09:00 BP 118/31 L 06/01/20 09:00 Pulse Ox 97 06/01/20 09:00 Body Mass Index 24.9 Const Other: Inubated, sedated, no acute distress noted Neck Neck: Yes normal visual inspection and Yes no JVD Carotids: carotid upstroke abnormal Resp Auscultation: clear to auscultation bilaterally (dim lower lobes), no rales, no rhonchi and no wheezes Cardio Rate: regular rate Rhythm: regular rhythm Heart sounds: S1 normal heart sound present and S2 normal heart sound present Peripheral pulses: Peripheral pulses 2+ throughout GI Inspection: Yes normal to inspection Skin General skin exam: no rashes or lesions noted Extrem General: Yes normal to inspection Results Labs and Meds Result diagrams: 06/01/20 06:00 06/01/20 06:00 Lab results: Laboratory Results - last 24 hr 05/31/20 05/31/20 05/31/20 05:10 09:25 11:34 WBC RBC Hgb Hct MCV MCH MCHC RDW Plt Count MPV Immature Gran % (Auto) Neut % (Auto) Lymph % (Auto) [place] % (Auto) Eos % (Auto) Baso % (Auto) Lymph # (Auto) [place] # (Auto) Eos # (Auto) Baso # (Auto) Abs Immat Gran (auto) Absolute Neuts (auto) Absolute Nucleated RBC Nucleated RBC % (auto) Smear Tech's Comments Smear Path Review SEE NOTE PT INR APTT PTT (Heparin Protocol) 118.8 H* D VBG pH VBG pCO2 VBG pO2 VBG HCO3 VBG O2 Saturation VBG Base Excess Sodium Potassium Chloride Carbon Dioxide Anion Gap BUN Creatinine Estim Creat Clear Calc Estimated GFR POC Glucose Random Glucose Lactic Acid Fup @ 4Hr 2.1 H* Calcium Phosphorus Magnesium Total Bilirubin Direct Bilirubin AST ALT Alkaline Phosphatase Troponin I High Sens Total Protein Albumin 05/31/20 05/31/20 05/31/20 11:37 13:16 16:49 WBC RBC Hgb Hct MCV MCH MCHC RDW Plt Count MPV Immature Gran % (Auto) Neut % (Auto) Lymph % (Auto) [place] % (Auto) Eos % (Auto) Baso % (Auto) Lymph # (Auto) [place] # (Auto) Eos # (Auto) Baso # (Auto) Abs Immat Gran (auto) Absolute Neuts (auto) Absolute Nucleated RBC Nucleated RBC % (auto) Smear Tech's Comments Smear Path Review PT INR APTT PTT (Heparin Protocol) 87.7 H D VBG pH VBG pCO2 VBG pO2 VBG HCO3 VBG O2 Saturation VBG Base Excess Sodium Potassium Chloride Carbon Dioxide Anion Gap BUN Creatinine Estim Creat Clear Calc Estimated GFR POC Glucose 213 H 279 H Random Glucose Lactic Acid Fup @ 4Hr Calcium Phosphorus Magnesium Total Bilirubin Direct Bilirubin AST ALT Alkaline Phosphatase Troponin I High Sens Total Protein Albumin 05/31/20 05/31/20 06/01/20 19:43 21:30 00:45 WBC RBC Hgb Hct MCV MCH MCHC RDW Plt Count MPV Immature Gran % (Auto) Neut % (Auto) Lymph % (Auto) [place] % (Auto) Eos % (Auto) Baso % (Auto) Lymph # (Auto) [place] # (Auto) Eos # (Auto) Baso # (Auto) Abs Immat Gran (auto) Absolute Neuts (auto) Absolute Nucleated RBC Nucleated RBC % (auto) Smear Tech's Comments Smear Path Review PT INR APTT PTT (Heparin Protocol) 89.2 H VBG pH VBG pCO2 VBG pO2 VBG HCO3 VBG O2 Saturation VBG Base Excess Sodium Potassium Chloride Carbon Dioxide Anion Gap BUN Creatinine Estim Creat Clear Calc Estimated GFR POC Glucose 268 H 284 H Random Glucose Lactic Acid Fup @ 4Hr Calcium Phosphorus Magnesium Total Bilirubin Direct Bilirubin AST ALT Alkaline Phosphatase Troponin I High Sens Total Protein Albumin 06/01/20 06/01/20 06/01/20 02:27 04:53 05:44 WBC RBC Hgb Hct MCV MCH MCHC RDW Plt Count MPV Immature Gran % (Auto) Neut % (Auto) Lymph % (Auto) [place] % (Auto) Eos % (Auto) Baso % (Auto) Lymph # (Auto) [place] # (Auto) Eos # (Auto) Baso # (Auto) Abs Immat Gran (auto) Absolute Neuts (auto) Absolute Nucleated RBC Nucleated RBC % (auto) Smear Tech's Comments Smear Path Review PT INR APTT PTT (Heparin Protocol) 75.1 VBG pH 7.23 L VBG pCO2 49 VBG pO2 52 VBG HCO3 20 VBG O2 Saturation 79.9 VBG Base Excess -7.2 Sodium Potassium Chloride Carbon Dioxide Anion Gap BUN Creatinine Estim Creat Clear Calc Estimated GFR POC Glucose 258 H Random Glucose Lactic Acid Fup @ 4Hr Calcium Phosphorus Magnesium Total Bilirubin Direct Bilirubin AST ALT Alkaline Phosphatase Troponin I High Sens Total Protein Albumin 06/01/20 06/01/20 06/01/20 06:00 06:00 06:00 WBC 16.5 H RBC 3.04 L Hgb 8.9 L Hct 27.6 L MCV 90.8 MCH 29.3 MCHC 32.2 RDW 14.6 Plt Count 341 MPV 10.6 Immature Gran % (Auto) 4.5 H Neut % (Auto) 88.7 H Lymph % (Auto) 2.5 L [place] % (Auto) 4.1 Eos % (Auto) 0.0 Baso % (Auto) 0.2 Lymph # (Auto) 0.4 L [place] # (Auto) 0.7 Eos # (Auto) 0.0 Baso # (Auto) 0.0 Abs Immat Gran (auto) 0.74 H Absolute Neuts (auto) 14.6 H Absolute Nucleated RBC 0.060 H Nucleated RBC % (auto) 0.4 H Smear Tech's Comments VERIFIED Smear Path Review PT INR APTT PTT (Heparin Protocol) VBG pH VBG pCO2 VBG pO2 VBG HCO3 VBG O2 Saturation VBG Base Excess Sodium 141 Potassium 5.2 H Chloride 107 Carbon Dioxide 20 L Anion Gap 19 BUN 77 H Creatinine 2.98 H Estim Creat Clear Calc 17.5 Estimated GFR 20 POC Glucose Random Glucose 279 H Lactic Acid Fup @ 4Hr Calcium 7.7 L D Phosphorus 6.3 H Magnesium 2.3 Total Bilirubin 0.9 Direct Bilirubin AST 158 H ALT 173 H Alkaline Phosphatase 186 H Troponin I High Sens 14267.7 H Total Protein 6.0 L Albumin 3.3 L 06/01/20 06/01/20 06:00 06:00 WBC RBC Hgb Hct MCV MCH MCHC RDW Plt Count MPV Immature Gran % (Auto) Neut % (Auto) Lymph % (Auto) [place] % (Auto) Eos % (Auto) Baso % (Auto) Lymph # (Auto) [place] # (Auto) Eos # (Auto) Baso # (Auto) Abs Immat Gran (auto) Absolute Neuts (auto) Absolute Nucleated RBC Nucleated RBC % (auto) Smear Tech's Comments Smear Path Review PT 13.8 H INR 1.2 H APTT 60.0 H* D PTT (Heparin Protocol) VBG pH VBG pCO2 VBG pO2 VBG HCO3 VBG O2 Saturation VBG Base Excess Sodium Potassium Chloride Carbon Dioxide Anion Gap BUN Creatinine Estim Creat Clear Calc Estimated GFR POC Glucose Random Glucose Lactic Acid Fup @ 4Hr Calcium Phosphorus Magnesium Total Bilirubin 1.0 Direct Bilirubin 0.8 H AST 152 H ALT 166 H Alkaline Phosphatase 178 H Troponin I High Sens Total Protein 6.0 L Albumin 3.2 L Imaging Radiologist's impression: Impressions Venous Duplex 05/31/20 00:00 IMPRESSION: No DVT demonstrated in the bilateral lower extremity. Progress Note: A&P Assessment and plan (1) Cardiac arrest: Status: Acute Assessment and Plan: PEA arrest yesterday with hypoxia noted. Successful resuscitation with ROSC. Currently intubated, sedated, [place] [id number] this am. Echo with EF 35-40%, lateral wall akinesis. EKG with changes indicating lateral wall NH. Was loaded with Plavix yesterday and now on 75mg daily. Had been on aspirin which was stopped this am over concern for bleeding in OGT. On Heparin drip per protocol for at least 48 hrs. On Norepinephrine and Dopamine for BP support. Requiring less today, compared to yesterday. Continue to wean as able. CVP 5-6 per RN this am. Goal CVP [address] Hernandez. Critical care being managed b y [employer]. Ongoing medical mgt for NH. Not a candidate for cardiac cath at present in setting of his acute illness, COVID, CKD. (2) Cardiogenic shock: Status: Acute (3) NSTEMI (non-ST elevated myocardial infarction): Status: Acute (4) Acute NH, inferolateral wall: Status: Acute (5) Acute respiratory distress syndrome (ARDS) due to 2019 novel coronavirus: Status: Acute (6) Acute respiratory failure with hypoxia: Status: Acute (7) CKD stage 3 due to type 2 diabetes mellitus: Status: Acute Fall Risk Details Current Medications: Current Medications Generic Name Dose Route Start Last Admin Trade Name Freq PRN Reason Stop Dose Admin Acetaminophen 650 mg 05/24/20 10:53 05/29/20 19:35 Acetaminophen 325 Mg Tablet PO 650 mg Q6H PRN Administration PAIN Albuterol Sulfate 2 puff 05/25/20 15:39 Albuterol Sulfate 90 Mcg 8 Gm Inhaler INHALE Q4H PRN Shortness of Breath Aspirin 81 mg 05/24/20 09:00 06/01/20 09:44 Aspirin Enteric Coated 81 Mg Tablet. PO Not Given DAILY JUAN MANUEL Chlorhexidine Gluconate 15 ml 05/31/20 04:00 06/01/20 05:46 Chlorhexidine Gluc Oral Rinse 15 Ml Mouthwash BUCCAL 15 ml Q8H JUAN MANUEL Administration Clonazepam 0.5 mg 05/27/20 23:41 05/30/20 21:27 Clonazepam 0.5 Mg Tablet PO 0.5 mg BEDTIME PRN Administration Anxiety Clopidogrel Bisulfate 75 mg 06/01/20 09:00 06/01/20 09:49 Clopidogrel Bisulfate 75 Mg Tablet PO 75 mg DAILY JUAN MANUEL Administration Dexamethasone Sodium Phosphate 6 mg 05/25/20 15:45 06/01/20 09:49 Dexamethasone Sod Phosphate 4 Mg/Ml Vial IVPUSH 6 mg DAILY JUAN MANUEL Administration Famotidine 20 mg 05/31/20 21:00 06/01/20 09:49 Famotidine/Pf 20 Mg/2 Ml Vial IVPUSH 20 mg BID JUAN MANUEL Administration Glucose 15 gm 05/23/20 20:04 Glucose Gel 15 Gm Gel..Gram. PO ONCE PRN hypoglycemia Guaifenesin/Dextromethorphan 5 ml 05/27/20 10:14 Guaifenesin Dm 100/10/5 Ml 5 Ml Syrup PO Q6H PRN cough Heparin Sodium (Porcine) 5,776 unit 05/31/20 04:30 Heparin Sodium,Porcine 5,000 Unit/Ml Vial 80 unit/kg (5776 unit) IVPUSH BOLUS PRN 80 unit/kg - Heparin Protocol Heparin Sodium (Porcine) 2,888 unit 05/31/20 04:30 Heparin Sodium,Porcine 5,000 Unit/Ml Vial 40 unit/kg (2888 unit) IVPUSH BOLUS PRN HEPARINPRO Norepinephrine Bitartrate 8 mg in 250 mls @ 0 mls/hr 05/31/20 02:15 06/01/20 09:14 Levophed IVCONT 0.16 mcg/kg/min .Q0M JUAN MANUEL 21.66 mls/hr Titration Protocol Per Protocol Propofol 1,000 mg in 100 mls @ 0 mls/hr 05/31/20 03:45 06/01/20 09:33 Diprivan IVCONT 20 mcg/kg/min .Q0M JUAN MANUEL 8.66 mls/hr Titration Protocol Per Protocol Heparin Sodium/Sodium Chloride 25,000 unit in 250 mls @ 0 mls/hr 05/31/20 04:30 06/01/20 06:01 IVCONT 8 units/kg/hr .Q0M JUAN MANUEL 5.78 mls/hr Administration Protocol Per Protocol Dopamine HCl/Dextrose 400 mg in 250 mls @ 0 mls/hr 05/31/20 10:45 06/01/20 06:01 IVCONT 10 mcg/kg/min .Q0M JUAN MANUEL 27.08 mls/hr Administration Protocol Per Protocol Fentanyl 1,000 mcg in 100 mls @ 0 mls/hr 05/31/20 11:45 06/01/20 09:33 Sublimaze/Ns IVCONT 50 mcg/hr .Q0M JUAN MANUEL 5 mls/hr Titration Protocol Per Protocol Insulin Glargine 30 unit 05/27/20 21:40 05/31/20 22:00 Insulin Glargine,Hum.Rec.Anlog 100 Unit/Ml 10 Ml Vial SUBCUT 30 unit BEDTIME JUAN MANUEL Administration Insulin Human Lispro 0 unit 06/01/20 00:00 06/01/20 05:46 Insulin Lispro 100 Unit/Ml 3 Ml Vial SUBCUT 6 unit RQ6H JUAN MANUEL Administration Protocol Melatonin 5 mg 05/26/20 10:03 05/30/20 21:27 Melatonin 3 Mg Tablet PO 5 mg BEDTIME PRN Administration Insomnia Naloxone HCl 0.2 mg 05/31/20 11:32 Naloxone Hcl 0.4 Mg/Ml Vial IVPUSH Q2M PRN Excessive sedation or RR < 8 Pharmacy Consult 1 each 05/23/20 18:08 Consult Rx Perform Med Rec MISCELLANE ONCE PRN Consult order Sodium Chloride 3 ml 05/24/20 00:00 06/01/20 07:09 0.9 % Sodium Chloride Flush 3 Ml Syringe IVFLUSH 3 ml QSHIFT JUAN MANUEL Administration Time Spent With Patient Time: Total time spent is greater than 50% in coordination of care (as docume nted) at patient's floor/unit and/or counseling patient: Time with patient: 15 - 24 minutes
[2020-06-01 10:05] LABS: PTT Heparin Drip 73.3 SEC (53-77.9)
[2020-06-01] MEDS: Albumin Human 25 % 100 ML IV ×2 (11:57→17:22)
[2020-06-01] MEDS: Lactated Ringers 1,000 ML 250 ML IVCONT (11:58)
[2020-06-01 12:25] LABS: Glucose, Whole Blood 255 mg/dL (60-115)
--- NOTE | 2020-06-01 12:36 | MHC.CM.PN ---
Patient remains intubated/vented in ICU. Continue to monitor for d/c needs.
[2020-06-01] MEDS: propofoL 1,000 MG/100 ML VIAL 13 MG IVCONT ×2 (14:37→19:59)
--- NOTE | 2020-06-01 15:12 | P.PNCC_ITS ---
Subjective Subjective Date of Service: 06/01/20 Interval History: 84-year-old gentleman with underlying history of coronary artery disease, hypertension hospitalized on 05/23/2020 with COVID-19 related acute hypoxic respiratory failure with high FiO2 requirements. He has been started on dexamethasone and Remdesivir. His hospital course was complicated by cardiac arrest at 1:20 a.m. on 05/31/2020,initially bradycardia/asystole/PEA, later V-tach/VFib with return of spontaneous circulation after approximately 15 minutes of CPR intubated during the CPR. Post cardiac arrest echo with new lateral wall motion abnormalities. Evaluated by Cardiology service and deemed not a candidate for an acute intervention. Patient has been managed medically and intensive care unit. Moving all 4 extremities with spontaneous breathing trial, however not able to tolerated secondary to significant ventilator dyssynchrony. Physical Exam Vital Signs: Vital Signs: Last Vital Signs Temp 97.3 F 06/01/20 15:00 Pulse 66 06/01/20 15:00 Resp 20 06/01/20 15:00 BP 113/34 L 06/01/20 15:00 Pulse Ox 100 06/01/20 15:00 Body Mass Index 24.9 Const: General: no acute distress and other (Sedated on the vent) Eyes: Sclerae: sclerae normal Pupils: Other pupil findings (Bilateral pupils small, but reactive to light) Neck: Neck: Yes no lymphadenopathy, Yes trachea midline and Yes supple Resp: Auscultation: crackles (Diffuse bilateral) Cardio: Rate: regular rate Rhythm: regular rhythm Heart sounds: no gallops, no murmurs and no rubs GI: Palpation (GI): Soft to palpation and Other GI palpation findings present ( Nontender) Auscultation: normal bowel sounds Extrem: General: No clubbing, No cyanosis and Yes edema (Trace bilateral) Objective Data Labs CBC & Chem 7: 06/01/20 06:00 06/01/20 06:00 Labs: Laboratory Results - last 24 hr 05/31/20 05/31/20 05/31/20 16:49 19:43 21:30 WBC RBC Hgb Hct MCV MCH MCHC RDW Plt Count MPV Immature Gran % (Auto) Neut % (Auto) Lymph % (Auto) [place] % (Auto) Eos % (Auto) Baso % (Auto) Lymph # (Auto) [place] # (Auto) Eos # (Auto) Baso # (Auto) Abs Immat Gran (auto) Absolute Neuts (auto) Absolute Nucleated RBC Nucleated RBC % (auto) Smear Tech's Comments PT INR APTT PTT (Heparin Protocol) 89.2 H VBG pH VBG pCO2 VBG pO2 VBG HCO3 VBG O2 Saturation VBG Base Excess Sodium Potassium Chloride Carbon Dioxide Anion Gap BUN Creatinine Estim Creat Clear Calc Estimated GFR POC Glucose 279 H 268 H Random Glucose Calcium Phosphorus Magnesium Total Bilirubin Direct Bilirubin AST ALT Alkaline Phosphatase Troponin I High Sens Total Protein Albumin 06/01/20 06/01/20 06/01/20 00:45 02:27 04:53 WBC RBC Hgb Hct MCV MCH MCHC RDW Plt Count MPV Immature Gran % (Auto) Neut % (Auto) Lymph % (Auto) [place] % (Auto) Eos % (Auto) Baso % (Auto) Lymph # (Auto) [place] # (Auto) Eos # (Auto) Baso # (Auto) Abs Immat Gran (auto) Absolute Neuts (auto) Absolute Nucleated RBC Nucleated RBC % (auto) Smear Tech's Comments PT INR APTT PTT (Heparin Protocol) 75.1 VBG pH 7.23 L VBG pCO2 49 VBG pO2 52 VBG HCO3 20 VBG O2 Saturation 79.9 VBG Base Excess -7.2 Sodium Potassium Chloride Carbon Dioxide Anion Gap BUN Creatinine Estim Creat Clear Calc Estimated GFR POC Glucose 284 H Random Glucose Calcium Phosphorus Magnesium Total Bilirubin Direct Bilirubin AST ALT Alkaline Phosphatase Troponin I High Sens Total Protein Albumin 06/01/20 06/01/20 06/01/20 05:44 06:00 06:00 WBC 16.5 H RBC 3.04 L Hgb 8.9 L Hct 27.6 L MCV 90.8 MCH 29.3 MCHC 32.2 RDW 14.6 Plt Count 341 MPV 10.6 Immature Gran % (Auto) 4.5 H Neut % (Auto) 88.7 H Lymph % (Auto) 2.5 L [place] % (Auto) 4.1 Eos % (Auto) 0.0 Baso % (Auto) 0.2 Lymph # (Auto) 0.4 L [place] # (Auto) 0.7 Eos # (Auto) 0.0 Baso # (Auto) 0.0 Abs Immat Gran (auto) 0.74 H Absolute Neuts (auto) 14.6 H Absolute Nucleated RBC 0.060 H Nucleated RBC % (auto) 0.4 H Smear Tech's Comments VERIFIED PT INR APTT PTT (Heparin Protocol) VBG pH VBG pCO2 VBG pO2 VBG HCO3 VBG O2 Saturation VBG Base Excess Sodium 141 Potassium 5.2 H Chloride 107 Carbon Dioxide 20 L Anion Gap 19 BUN 77 H Creatinine 2.98 H Estim Creat Clear Calc 17.5 Estimated GFR 20 POC Glucose 258 H Random Glucose 279 H Calcium 7.7 L D Phosphorus 6.3 H Magnesium 2.3 Total Bilirubin 0.9 Direct Bilirubin AST 158 H ALT 173 H Alkaline Phosphatase 186 H Troponin I High Sens Total Protein 6.0 L Albumin 3.3 L 06/01/20 06/01/20 06/01/20 06:00 06:00 06:00 WBC RBC Hgb Hct MCV MCH MCHC RDW Plt Count MPV Immature Gran % (Auto) Neut % (Auto) Lymph % (Auto) [place] % (Auto) Eos % (Auto) Baso % (Auto) Lymph # (Auto) [place] # (Auto) Eos # (Auto) Baso # (Auto) Abs Immat Gran (auto) Absolute Neuts (auto) Absolute Nucleated RBC Nucleated RBC % (auto) Smear Tech's Comments PT 13.8 H INR 1.2 H APTT 60.0 H* D PTT (Heparin Protocol) VBG pH VBG pCO2 VBG pO2 VBG HCO3 VBG O2 Saturation VBG Base Excess Sodium Potassium Chloride Carbon Dioxide Anion Gap BUN Creatinine Estim Creat Clear Calc Estimated GFR POC Glucose Random Glucose Calcium Phosphorus Magnesium Total Bilirubin 1.0 Direct Bilirubin 0.8 H AST 152 H ALT 166 H Alkaline Phosphatase 178 H Troponin I High Sens 80611.7 H Total Protein 6.0 L Albumin 3.2 L 06/01/20 06/01/20 09:25 12:10 WBC RBC Hgb Hct MCV MCH MCHC RDW Plt Count MPV Immature Gran % (Auto) Neut % (Auto) Lymph % (Auto) [place] % (Auto) Eos % (Auto) Baso % (Auto) Lymph # (Auto) [place] # (Auto) Eos # (Auto) Baso # (Auto) Abs Immat Gran (auto) Absolute Neuts (auto) Absolute Nucleated RBC Nucleated RBC % (auto) Smear Tech's Comments PT INR APTT PTT (Heparin Protocol) 73.3 VBG pH VBG pCO2 VBG pO2 VBG HCO3 VBG O2 Saturation VBG Base Excess Sodium Potassium Chloride Carbon Dioxide Anion Gap BUN Creatinine Estim Creat Clear Calc Estimated GFR POC Glucose 255 H Random Glucose Calcium Phosphorus Magnesium Total Bilirubin Direct Bilirubin AST ALT Alkaline Phosphatase Troponin I High Sens Total Protein Albumin Microbiology Microbiology Results: Microbiology 05/23/20 17:42 Blood - Venous Blood Culture - Final No growth after 5 days. 05/23/20 16:49 Blood - Venous Blood Culture - Final No growth after 5 days. Progress Note: A&P Assessment and plan (1) Cardiac arrest with successful resuscitation: Status: Acute Assessment and Plan: Assessment: 84-year-old gentleman with underlying CAD and prior OH admitted with COVID-19 related ARDS resulting acute hypoxic respiratory failure further complicated by cardiac arrest secondary to an acute OH with successful resusci tation intubated during the cardiac arrest Plan: Neuro: Moves all 4 extremities. Very anxious with spontaneous breathing trial. Cardiac: Cardiac arrest and cardiogenic shock secondary to acute OH, improving. Continue to titrate off pressors as tolerated. Cardiology service care appreciated. Deemed not a candidate for an acute intervention. Continue with medical management with heparin drip and Plavix. Aspirin held secondary to small amount of coffee-ground secretions and or G-tube. Pulmonary: Acute hypoxic respiratory failure secondary to COVID-19 related ARDS. Intubated during the CPR. FiO2 requirements improving. Continue to titrate off ventilatory support as tolerated. Renal: Acute renal failure secondary to cardiogenic shock. Non oliguric. Continue to monitor renal indices and urine output. Hyperkalemia, continue to monitor electrolytes. Does not require dialysis at this time. Endo: No acute issues. GI: No acute issues. ID: COVID-19 related viral sepsis. Completed remdesivir. Continue on dexamethasone. Heme/Onc: No acute issues. Psych: No acute issues. Miscellaneous: No acute issues. Prophylaxis: Heparin drip, famotidine Diet: Tube feeds Critical care time spent: 90 minutes (2) Acute OH, inferolateral wall: Status: Acute (3) Cardiogenic shock: Status: Acute (4) Acute respiratory failure with hypoxia: Status: Acute (5) Acute respiratory distress syndrome (ARDS) due to 2019 novel coronavirus: Status: Acute (6) SUKHWINDER (acute kidney injury): Status: Acute (7) Diabetes type 2, uncontrolled: Status: Acute Time Spent With Patient Total time spent with greater than 50% in coordination of care (as documented) at patient's floor/unit and/or counseling patient:: 0 Critical Care Time Critical Care Time (minutes): 90
[2020-06-01 17:31] LABS: Glucose, Whole Blood 224 mg/dL (60-115)
--- NOTE | 2020-06-01 17:40 | PC.NURSE ---
S/E Afebrile Failed sedation vacation - HR 130's, BP soft, anxious, moving all four extremities, not following commands SR 1AVB, BBB - Peaked T waves - MD aware Unable to titrate pressors - per Dr Cordova maintain MAP >55 CVP 5-6 LR x1 liter at 250cc/hr ordered and administered Albumin 100cc q6 ordered Aspirin held per cardio +3 Pitting edema upper extremities Vent settings: AC 20/450/8/80% Fio2 80%, o2 sat mid 90's - Fio2 decreased to 70% per MD - o2 sat down to as low as 67% - patient manually ventilated and o2 back up to 96% - MD aware Per MD maintain sats >88% Started on Promote 10cc/hr per MD No BM Urine output 100cc/hr avg, yellow skin intact, patient bathed Family updated and at bedside.
[2020-06-01 17:43] LABS: Chlorpropamide None Detected; Glimepiride None Detected; Glipizide None Detected; Glyburide None Detected; Nateglinide None Detected; Pioglitazone None Detected; Repaglinide None Detected; Rosiglitazone None Detected; Tolazamide None Detected; Tolbutamide None Detected
[2020-06-01] MEDS: DOPamine HCL/D5W 400 MG/250 ML PLAST..BAG 6.77 MG IVCONT (20:00)
[2020-06-01] MEDS: Insulin Glargine,Hum.rec.anlog 100 UNIT/ML 10 ML VIAL 30 UNIT SUBCUT (20:00)
[2020-06-01 21:52] LABS: Glucose, Whole Blood 206 mg/dL (60-115)
[2020-06-02] VITALS (33 sets, daily range): BP systolic 94–135; BP diastolic 31–69; PULSE 80–121; RESP 17–25; TEMP 37–37.5; O2SAT 88–100
[2020-06-02] MEDS: Albumin Human 25 % 100 ML IV ×2 (00:26→05:13)
[2020-06-02] MEDS: 0.9 % Sodium Chloride Flush 3 ML SYRINGE IVFLUSH ×4 (00:26→23:53)
[2020-06-02] MEDS: Insulin Lispro 100 UNIT/ML 3 ML VIAL SUBCUT ×4 (00:31→17:51)
[2020-06-02 00:49] LABS: Glucose, Whole Blood 191 mg/dL (60-115)
[2020-06-02] MEDS: Heparin Sodium,Porcine/1/2NS 25,000 UNIT/250 ML IV.SOLN 5.78 UNIT IVCONT (03:05)
[2020-06-02] MEDS: propofoL 1,000 MG/100 ML VIAL 15.16 MG IVCONT ×2 (03:05→07:24)
[2020-06-02] MEDS: fentaNYL citrate/NS 1,000 MCG/100 ML PLAST..BAG 10 MCG IVCONT (03:06)
[2020-06-02] MEDS: Chlorhexidine Gluc Oral Rinse 15 ML MOUTHWASH BUCCAL ×3 (03:06→19:41)
[2020-06-02 05:46] LABS: Glucose, Whole Blood 207 mg/dL (60-115)
[2020-06-02 06:48] LABS: Basophils Percent Auto 0.1 % (0-2); Hematocrit 22.2 % (42-52); Imm Gran Abs Auto 0.64 X10*3/uL (0.00-0.03); Imm Gran Pct Auto 4.3 % (0.0-0.4); Lymphocytes Absolute Auto 0.2 X10*3/uL (1.2-4.9); Lymphocytes Percent Auto 1.3 % (20-40); MANUAL DIFF FLAG SCAN; Mean Corpuscular HGB Conc 30.6 g/dl (31.0-36.0); Mean Corpuscular Hemoglobin 28.5 pg (27.0-33.0); Mean Corpuscular Volume 92.9 fL (80-98); Mean Platelet Volume 10.6 fL (9.4-12.4); Monocytes Absolute Auto 0.4 X10*3/uL (0.1-1.2); Monocytes Percent Auto 2.6 % (2-11); NRBC Pct Auto 0.5 /100WBC (0.0-0.2); Neutrophils Absolute Auto 13.8 X10*3/uL (2.0-8.3); Neutrophils Percent Auto 91.7 % (45-73); Platelet Count 279 X10*3/uL (160-400); Red Blood Count 2.39 X10*6/uL (4.60-5.80); Red Cell Distribution Width 15.1 % (11.0-16.0); SCAN SMEAR FLAG 1; White Blood Count 15.1 X10*3/uL (4.8-10.8)
[2020-06-02 06:51] LABS: Base Excess VBG -6.7 mmol/L; HCO3 VBG 20 mmol/L; Oxygen Saturation VBG 80.3 %; PCO2 VBG 50 mmhg; PO2 VBG 54 mmhg; pH VBG 7.23 (7.32-7.43)
[2020-06-02 07:02] LABS: Hemoglobin 6.8 g/dl (14.0-18.0)
[2020-06-02 07:14] LABS: Alanine Aminotransferase 92 U/L (0-40); Alkaline Phosphatase 124 U/L (39-117); Anion Gap 21 (12-20); Aspartate Amino Transferase 47 U/L (5-37); Bilirubin Direct 0.4 mg/dL (0.0-0.5); Bilirubin Total 0.7 mg/dL (0.0-1.0); Blood Urea Nitrogen 72 mg/dL (9-16); Calcium 7.5 mg/dL (8.4-10.2); Carbon Dioxide 17 mmol/L (22-29); Chloride 111 mmol/L (96-108); Creatinine Clr Calc Pharmacy 17.5; Estimated Glomerular Filt Rate 20; Glucose Random 202 mg/dL (60-115); Magnesium 2.1 mg/dL (1.6-2.6); Phosphorus 4.8 mg/dL (2.7-4.5); Potassium 5.2 mmol/l (3.3-5.1); Sodium 144 mmol/L (135-145); Total Protein 6.1 g/dL (6.5-8.0)
[2020-06-02 07:29] LABS: SLIDE REVIEW VERIFIED
[2020-06-02 07:33] LABS: PTT Heparin Drip 52.1 SEC (53-77.9)
--- NOTE | 2020-06-02 07:59 | PC.NURSE ---
Shift eval 7p-7a - at initial assessment, attempted to titrate fio2 down from 100 to 90% - patient desat. Unable to titrate dopamine off - running at 2.5mcg/kg/min. Patient bagged w/ ambu w/ RT, increased sedation - propofol up to 35 mcg/kg/min from 30 - resp status improved. Titrated levo down to 0.28 mcg/kg/min. Patient tolerated repos Q2H, bathed, shaved, mouth care. Tolerating promote tube feed 10ml/hr. Temp up to 99.3. Able to titrate FIO2 down to 80%. Vent settings remain same othewise - AC 20, TV 450, peep 10 - ETT 7.5 @ 25cm at lip. in-line secretions small amts of clear/cream secretions.
--- NOTE | 2020-06-02 08:44 | MHC.CM.PN ---
Pt continues on ventilatory support following a NSTEMI with CPR secondary to COVID. Renal function remains compromised: not a candidate for hemodialysis. D/C disposition remains unknown at this time. It is highly likely that pt may require continued care following his hospitalization however, his condition remains guarded and the d/c plan will be reevaluated daily based on pt's progress. No referrals have been made at this time. CM to follow for d/c planning needs
[2020-06-02] MEDS: Famotidine/PF 20 MG/2 ML VIAL IVPUSH (09:30)
[2020-06-02] MEDS: dexAMETHasone sod phosphate 4 MG/ML VIAL 6 MG IVPUSH (09:30)
[2020-06-02] MEDS: Lactulose 20 GM/30 ML SOLUTION 30 GM PO (09:30)
--- NOTE | 2020-06-02 10:41 | P.PNCA_ITS ---
Subjective Subjective Principal diagnosis: Resp failure, PEA arrest, cardiogenic shock, NSTEMI Interval history: Cardiology follow up for NSTEMI, PEA arrest, shock. Seen at 0910. Today he remains intubated, sedated, on vent support. Unable to give subjective data. Continues on pressors for BP support, at lower doses. Physical Exam Vital Signs: Last Vital Signs Temp 98.8 F 06/02/20 10:00 Pulse 89 06/02/20 10:00 Resp 20 06/02/20 10:00 BP 121/49 L 06/02/20 10:00 Pulse Ox 97 06/02/20 10:00 Body Mass Index 24.9 Const Other: Sedated, intubated, on vent. Appears comfortable without distress. Neck Neck: Yes no JVD Resp Effort & Inspection: normal respiratory effort (with vent assistance) Auscultation: clear to auscultation bilaterally (coarse clear, diminished without distinct rales noted), no rales, no rhonchi and no wheezes Cardio Rate: regular rate Rhythm: abnormal rhythm regularly irregular Heart sounds: S1 normal heart sound present (without noted murmur or rubs, sounds are diminished) and S2 normal heart sound present Peripheral pulses: Peripheral pulses 2+ throughout GI Inspection: Yes normal to inspection Extrem General: Yes normal to inspection Results Labs and Meds Result diagrams: 06/02/20 05:42 06/02/20 05:42 Lab results: Laboratory Results - last 24 hr 05/23/20 06/01/20 06/01/20 20:30 12:10 17:27 WBC RBC Hgb Hct MCV MCH MCHC RDW Plt Count MPV Immature Gran % (Auto) Neut % (Auto) Lymph % (Auto) [place] % (Auto) Eos % (Auto) Baso % (Auto) Lymph # (Auto) [place] # (Auto) Eos # (Auto) Baso # (Auto) Abs Immat Gran (auto) Absolute Neuts (auto) Absolute Nucleated RBC Nucleated RBC % (auto) Smear Tech's Comments PTT (Heparin Protocol) VBG pH VBG pCO2 VBG pO2 VBG HCO3 VBG O2 Saturation VBG Base Excess Sodium Potassium Chloride Carbon Dioxide Anion Gap BUN Creatinine Estim Creat Clear Calc Estimated GFR POC Glucose 255 H 224 H Random Glucose Calcium Phosphorus Magnesium Total Bilirubin Direct Bilirubin AST ALT Alkaline Phosphatase Total Protein Albumin Rosiglitazone None Detected Pioglitazone None Detected Nateglinide None Detected Repaglinide None Detected Chlorpropamide None Detected Tolbutamide None Detected Tolazamide None Detected Glimepiride None Detected Glipizide None Detected Glibenclamide None Detected Blood Type Antibody Screen Crossmatch 06/01/20 06/02/20 06/02/20 20:02 00:28 05:16 WBC RBC Hgb Hct MCV MCH MCHC RDW Plt Count MPV Immature Gran % (Auto) Neut % (Auto) Lymph % (Auto) [place] % (Auto) Eos % (Auto) Baso % (Auto) Lymph # (Auto) [place] # (Auto) Eos # (Auto) Baso # (Auto) Abs Immat Gran (auto) Absolute Neuts (auto) Absolute Nucleated RBC Nucleated RBC % (auto) Smear Tech's Comments PTT (Heparin Protocol) VBG pH VBG pCO2 VBG pO2 VBG HCO3 VBG O2 Saturation VBG Base Excess Sodium Potassium Chloride Carbon Dioxide Anion Gap BUN Creatinine Estim Creat Clear Calc Estimated GFR POC Glucose 206 H 191 H 207 H Random Glucose Calcium Phosphorus Magnesium Total Bilirubin Direct Bilirubin AST ALT Alkaline Phosphatase Total Protein Albumin Rosiglitazone Pioglitazone Nateglinide Repaglinide Chlorpropamide Tolbutamide Tolazamide Glimepiride Glipizide Glibenclamide Blood Type Antibody Screen Crossmatch 06/02/20 06/02/20 06/02/20 05:42 05:42 05:42 WBC 15.1 H RBC 2.39 L D Hgb 6.8 L* D Hct 22.2 L MCV 92.9 MCH 28.5 MCHC 30.6 L RDW 15.1 Plt Count 279 MPV 10.6 Immature Gran % (Auto) 4.3 H Neut % (Auto) 91.7 H Lymph % (Auto) 1.3 L [place] % (Auto) 2.6 Eos % (Auto) 0.0 Baso % (Auto) 0.1 Lymph # (Auto) 0.2 L [place] # (Auto) 0.4 Eos # (Auto) 0.0 Baso # (Auto) 0.0 Abs Immat Gran (auto) 0.64 H Absolute Neuts (auto) 13.8 H Absolute Nucleated RBC 0.080 H Nucleated RBC % (auto) 0.5 H Smear Tech's Comments VERIFIED PTT (Heparin Protocol) 52.1 L D VBG pH VBG pCO2 VBG pO2 VBG HCO3 VBG O2 Saturation VBG Base Excess Sodium 144 Potassium 5.2 H Chloride 111 H Carbon Dioxide 17 L Anion Gap 21 H BUN 72 H Creatinine 2.98 H Estim Creat Clear Calc 17.5 Estimated GFR 20 POC Glucose Random Glucose 202 H Calcium 7.5 L Phosphorus 4.8 H Magnesium 2.1 Total Bilirubin 0.7 Direct Bilirubin 0.4 AST 47 H D ALT 92 H Alkaline Phosphatase 124 H D Total Protein 6.1 L Albumin 4.0 D Rosiglitazone Pioglitazone Nateglinide Repaglinide Chlorpropamide Tolbutamide Tolazamide Glimepiride Glipizide Glibenclamide Blood Type Antibody Screen Crossmatch 06/02/20 06/02/20 05:42 07:30 WBC RBC Hgb Hct MCV MCH MCHC RDW Plt Count MPV Immature Gran % (Auto) Neut % (Auto) Lymph % (Auto) [place] % (Auto) Eos % (Auto) Baso % (Auto) Lymph # (Auto) [place] # (Auto) Eos # (Auto) Baso # (Auto) Abs Immat Gran (auto) Absolute Neuts (auto) Absolute Nucleated RBC Nucleated RBC % (auto) Smear Tech's Comments PTT (Heparin Protocol) VBG pH 7.23 L VBG pCO2 50 VBG pO2 54 VBG HCO3 20 VBG O2 Saturation 80.3 VBG Base Excess -6.7 Sodium Potassium Chloride Carbon Dioxide Anion Gap BUN Creatinine Estim Creat Clear Calc Estimated GFR POC Glucose Random Glucose Calcium Phosphorus Magnesium Total Bilirubin Direct Bilirubin AST ALT Alkaline Phosphatase Total Protein Albumin Rosiglitazone Pioglitazone Nateglinide Repaglinide Chlorpropamide Tolbutamide Tolazamide Glimepiride Glipizide Glibenclamide Blood Type A Positive Antibody Screen NEGATIVE Crossmatch See Detail Progress Note: A&P Assessment and plan (1) NSTEMI (non-ST elevated myocardial infarction): Status: Acute Assessment and Plan: PEA arrest 05/31 with hypoxia noted. Successful resuscitation with ROSC. Currently intubated, sedated, [place] [address]. Echo with EF 35- 40%, lateral wall akinesis. EKG with changes indicating lateral wall [place]. Was loaded with Plavix 05/31 and now on 75mg daily. Had been on aspirin which was stopped 06/01 for coffee gounds in OGT. Has been on Heparin drip per protocol for last 48 hrs. On Norepinephrine and Dopamine for BP support, now at lower doses. Critical care being managed by [facility]. Hgb noted to be 6.8 this am. Recieving blood transfusion. Recommend stop of heparin drip and plavix at this time. Dr Hernandez will further discuss with [facility]. Ongoing medical mgt for [place]. Not a candidate for cardiac cath at present in setting of his acute illness, COVID, SUKHWINDER on CKD. (2) Cardiogenic shock: Status: Acute Assessment and Plan: Improving (3) Cardiac arrest: Status: Acute Assessment and Plan: as above. (4) Acute respiratory distress syndrome (ARDS) due to 2019 novel coronavirus: Status: Acute Assessment and Plan: Followed by [facility] (5) Acute respiratory failure with hypoxia: Status: Acute (6) SUKHWINDER (acute kidney injury): Status: Acute Assessment and Plan: Cr 2.98 today, same as yesterday Fall Risk Details Current Medications: Current Medications Generic Name Dose Route Start Last Admin Trade Name Freq PRN Reason Stop Dose Admin Acetaminophen 650 mg 05/24/20 10:53 05/29/20 19:35 Acetaminophen 325 Mg Tablet PO 650 mg Q6H PRN Administration PAIN Albuterol Sulfate 2 puff 05/25/20 15:39 Albuterol Sulfate 90 Mcg 8 Gm Inhaler INHALE Q4H PRN Shortness of Breath Chlorhexidine Gluconate 15 ml 05/31/20 04:00 06/02/20 03:06 Chlorhexidine Gluc Oral Rinse 15 Ml Mouthwash BUCCAL 15 ml Q8H JUAN MANUEL Administration Dexamethasone Sodium Phosphate 6 mg 05/25/20 15:45 06/02/20 09:30 Dexamethasone Sod Phosphate 4 Mg/Ml Vial IVPUSH 6 mg DAILY JUAN MANUEL Administration Famotidine 20 mg 05/31/20 21:00 06/02/20 09:30 Famotidine/Pf 20 Mg/2 Ml Vial IVPUSH 20 mg BID JUAN MANUEL Administration Glucose 15 gm 05/23/20 20:04 Glucose Gel 15 Gm Gel..Gram. PO ONCE PRN hypoglycemia Guaifenesin/Dextromethorphan 5 ml 05/27/20 10:14 Guaifenesin Dm 100/10/5 Ml 5 Ml Syrup PO Q6H PRN cough Norepinephrine Bitartrate 8 mg in 250 mls @ 0 mls/hr 05/31/20 02:15 06/02/20 07:24 Levophed IVCONT 0.3 mcg/kg/min .Q0M JUAN MANUEL 40.61 mls/hr Administration Protocol Per Protocol Propofol 1,000 mg in 100 mls @ 0 mls/hr 05/31/20 03:45 06/02/20 07:24 Diprivan IVCONT 35 mcg/kg/min .Q0M JUAN MANUEL 15.16 mls/hr Administration Protocol Per Protocol Dopamine HCl/Dextrose 400 mg in 250 mls @ 0 mls/hr 05/31/20 10:45 06/01/20 20:35 IVCONT 2.5 mcg/kg/min .Q0M JUAN MANUEL 6.77 mls/hr Titration Protocol Per Protocol Fentanyl 1,000 mcg in 100 mls @ 0 mls/hr 05/31/20 11:45 06/02/20 03:06 Sublimaze/Ns IVCONT 100 mcg/hr .Q0M JUAN MANUEL 10 mls/hr Administration Protocol Per Protocol Insulin Glargine 30 unit 05/27/20 21:40 06/01/20 20:00 Insulin Glargine,Hum.Rec.Anlog 100 Unit/Ml 10 Ml Vial SUBCUT 30 unit BEDTIME JUAN MANUEL Administration Insulin Human Lispro 0 unit 06/01/20 00:00 06/02/20 05:19 Insulin Lispro 100 Unit/Ml 3 Ml Vial SUBCUT 4 unit RQ6H JUAN MANUEL Administration Protocol Melatonin 5 mg 05/26/20 10:03 05/30/20 21:27 Melatonin 3 Mg Tablet PO 5 mg BEDTIME PRN Administration Insomnia Naloxone HCl 0.2 mg 05/31/20 11:32 Naloxone Hcl 0.4 Mg/Ml Vial IVPUSH Q2M PRN Excessive sedation or RR < 8 Pharmacy Consult 1 each 05/23/20 18:08 Consult Rx Perform Med Rec MISCELLANE ONCE PRN Consult order Sodium Chloride 3 ml 05/24/20 00:00 06/02/20 09:31 0.9 % Sodium Chloride Flush 3 Ml Syringe IVFLUSH 3 ml QSHIFT JUAN MANUEL Administration Time Spent With Patient Time: Total time spent is greater than 50% in coordination of care (as documented) at patient's floor/unit and/or counseling patient: Time with patient: 15 - 24 minutes
--- NOTE | 2020-06-02 10:53 | MHC.CLN ---
F/U PT STARTED ON DRIP FEEDS PROMOTE AT 10CC/HR PROVIDES 240KCALS, 15G PROTEIN RECOMMEND PROMOTE AT MAX GOAL RATE 60CC/HR TO PROVIDE 1440KCALS (1840KCALS WITH SEDATION; 25.5KCALS/KG), 90G PROTEIN (1.25G/KG), 1208CC FREE WATER FROM FORMULA MONITOR TOLERANCE, RESIDUALS AND LYTES
--- NOTE | 2020-06-02 11:14 | XR_ITS ---
EXAMINATION: XR CHEST CLINICAL INFORMATION: Feeding tube placement COMPARISON: Previous chest x-ray most recent 05/31/2020 TECHNIQUE: Frontal view of the chest was obtained. FINDINGS: There is an endotracheal tube with tip 4 cm above the jimena. There is a right jugular line with tip projecting over the SVC. There is a nasogastric tube. This appears coiled in the proximal stomach with the tip of the tube projecting superiorly in the distal thoracic esophagus and should be repositioned. The cardiac and mediastinal contours are stable. There is diffuse bilateral airspace disease that appears unchanged. There is no pleural effusion or pneumothorax. There are degenerative changes of the spine. XR/XR chest 1V IMPRESSION: Nasogastric tube coiled in the proximal stomach with tip projecting superiorly projecting over the distal thoracic esophagus. This should be repositioned. Satisfactory position of endotracheal tube and right jugular line. No change in diffuse bilateral airspace disease. Findings will be communicated by the [place] work flow hi teacher Rosie Aparicio.
--- NOTE | 2020-06-02 11:30 | PC.NURSE ---
CRITICAL H&H OF 6.8/22.2 AT 0701. MD NOTIFIED VIA [employer]. MD ORDERED TYPE AND SCREEN AND 1 UNIT RBCS. GIVEN AND NO REACTION NOTED. HEPARIN GTT RUNNING AT 8 UNITS/KG/HR AT CHANGE OF SHIFT. PTT-HD CAME BACK AT 52.1. MD NOTIFIED. NO BOLUS GIVEN PER MD. GTT INCREASED BY 2 UNITS PER PROTOCOL AND MD. GTT RUNNING AT 10 UNITS/KG/HR AT 0821. PER CARDIOLOGY MD ALL ANTICOAGULANTS ON HOLD. HEPARIN GTT TURNED OFF AT 0920.
--- NOTE | 2020-06-02 11:33 | PC.NURSE ---
Desaturation with repostioning Pt repositioned to left side. shortly after being on left side pt noted to have a decrease in oxygenation down to 71 % despite suction. fio2 already at 100%. pt noted to have more persistent air leak from this am with fluctuation in oxygen stauration. ogt also noted to be coiled in the mouth, pulled backed and advanced. rt to bedside for air leak noted the ETT position at 23-24 cm and advanced ETT back to 25 cm LL. Provider aware, chest xray ordered and obtain.
[2020-06-02 11:51] LABS: Influenza A PCR NEGATIVE (Negative); Influenza B PCR NEGATIVE (Negative); Resp Syncy Virus RNA Qual PCR NEGATIVE (Negative); SARS COV2 PCR INHOUSE NEGATIVE (Negative)
[2020-06-02 11:55] LABS: Glucose, Whole Blood 219 mg/dL (60-115)
[2020-06-02] MEDS: Midazolam HCl/PF 2 MG/2 ML VIAL IVPUSH (12:28)
[2020-06-02] MEDS: fentaNYL citrate/NS 1,000 MCG/100 ML PLAST..BAG 5 MCG IVCONT (14:15)
[2020-06-02] MEDS: propofoL 1,000 MG/100 ML VIAL 17.33 MG IVCONT (14:39)
--- NOTE | 2020-06-02 15:51 | PM.CCPN ---
Subjective Subjective Date of Service: 06/02/20 Interval History: 84-year-old gentleman with underlying history of coronary artery disease, hypertension hospitalized on 05/23/2020 with COVID-19 related acute hypoxic respiratory failure with high FiO2 requirements. He has been started on dexamethasone and Remdesivir. His hospital course was complicated by cardiac arrest at 1:20 a.m. on 05/31/2020,initially bradycardia/asystole/PEA, later V-tach/VFib with return of spontaneous circulation after approximately 15 minutes of CPR intubated during the CPR. Post cardiac arrest echo with new lateral wall motion abnormalities. Evaluated by Cardiology service and deemed not a candidate for an acute intervention. Patient has been managed medically and intensive care unit. Overnight with drop in hemoglobin and small amount of coffee-ground drainage in OG-tube. Following some commands with sedation vacation. Physical Exam Vital Signs: Vital Signs: Last Vital Signs Temp 99.0 F 06/02/20 15:00 Pulse 110 H 06/02/20 15:00 Resp 20 06/02/20 15:00 BP 106/52 L 06/02/20 15:00 Pulse Ox 100 06/02/20 15:00 Body Mass Index 24.9 Const: General: no acute distress and other (Following some commands with sedation vacation, moving all 4 extremities) Eyes: Sclerae: sclerae normal Pupils: Other pupil findings (Small but reactive bilaterally) Neck: Neck: Yes no lymphadenopathy, Yes trachea midline and Yes supple Resp: Auscultation: crackles (Diffuse bilateral) Cardio: Rate: regular rate Rhythm: regular rhythm Heart sounds: no gallops, no murmurs and no rubs GI: Palpation (GI): Soft to palpation and Other GI palpation findings present ( Nontender) Auscultation: normal bowel sounds Extrem: General: No clubbing, No cyanosis and Yes edema (1+ bilateral) Objective Data Labs CBC & Chem 7: 06/02/20 05:42 06/02/20 05:42 Labs: Laboratory Results - last 24 hr 05/23/20 06/01/20 06/01/20 20:30 17:27 20:02 WBC RBC Hgb Hct MCV MCH MCHC RDW Plt Count MPV Immature Gran % (Auto) Neut % (Auto) Lymph % (Auto) [place] % (Auto) Eos % (Auto) Baso % (Auto) Lymph # (Auto) [place] # (Auto) Eos # (Auto) Baso # (Auto) Abs Immat Gran (auto) Absolute Neuts (auto) Absolute Nucleated RBC Nucleated RBC % (auto) Smear Tech's Comments PTT (Heparin Protocol) VBG pH VBG pCO2 VBG pO2 VBG HCO3 VBG O2 Saturation VBG Base Excess Sodium Potassium Chloride Carbon Dioxide Anion Gap BUN Creatinine Estim Creat Clear Calc Estimated GFR POC Glucose 224 H 206 H Random Glucose Calcium Phosphorus Magnesium Total Bilirubin Direct Bilirubin AST ALT Alkaline Phosphatase Total Protein Albumin Rosiglitazone None Detected Pioglitazone None Detected Nateglinide None Detected Repaglinide None Detected Chlorpropamide None Detected Tolbutamide None Detected Tolazamide None Detected Glimepiride None Detected Glipizide None Detected Glibenclamide None Detected Coronavirus (PCR) SARS-CoV-2 (PCR) Influenza Type A (PCR) Influenza Type B (PCR) RSV RNA Qual (PCR) Blood Type Antibody Screen Crossmatch 06/02/20 06/02/20 06/02/20 00:28 05:16 05:42 WBC RBC Hgb Hct MCV MCH MCHC RDW Plt Count MPV Immature Gran % (Auto) Neut % (Auto) Lymph % (Auto) [place] % (Auto) Eos % (Auto) Baso % (Auto) Lymph # (Auto) [place] # (Auto) Eos # (Auto) Baso # (Auto) Abs Immat Gran (auto) Absolute Neuts (auto) Absolute Nucleated RBC Nucleated RBC % (auto) Smear Tech's Comments PTT (Heparin Protocol) 52.1 L D VBG pH VBG pCO2 VBG pO2 VBG HCO3 VBG O2 Saturation VBG Base Excess Sodium Potassium Chloride Carbon Dioxide Anion Gap BUN Creatinine Estim Creat Clear Calc Estimated GFR POC Glucose 191 H 207 H Random Glucose Calcium Phosphorus Magnesium Total Bilirubin Direct Bilirubin AST ALT Alkaline Phosphatase Total Protein Albumin Rosiglitazone Pioglitazone Nateglinide Repaglinide Chlorpropamide Tolbutamide Tolazamide Glimepiride Glipizide Glibenclamide Coronavirus (PCR) SARS-CoV-2 (PCR) Influenza Type A (PCR) Influenza Type B (PCR) RSV RNA Qual (PCR) Blood Type Antibody Screen Crossmatch 06/02/20 06/02/20 06/02/20 05:42 05:42 05:42 WBC 15.1 H RBC 2.39 L D Hgb 6.8 L* D Hct 22.2 L MCV 92.9 MCH 28.5 MCHC 30.6 L RDW 15.1 Plt Count 279 MPV 10.6 Immature Gran % (Auto) 4.3 H Neut % (Auto) 91.7 H Lymph % (Auto) 1.3 L [place] % (Auto) 2.6 Eos % (Auto) 0.0 Baso % (Auto) 0.1 Lymph # (Auto) 0.2 L [place] # (Auto) 0.4 Eos # (Auto) 0.0 Baso # (Auto) 0.0 Abs Immat Gran (auto) 0.64 H Absolute Neuts (auto) 13.8 H Absolute Nucleated RBC 0.080 H Nucleated RBC % (auto) 0.5 H Smear Tech's Comments VERIFIED PTT (Heparin Protocol) VBG pH 7.23 L VBG pCO2 50 VBG pO2 54 VBG HCO3 20 VBG O2 Saturation 80.3 VBG Base Excess -6.7 Sodium 144 Potassium 5.2 H Chloride 111 H Carbon Dioxide 17 L Anion Gap 21 H BUN 72 H Creatinine 2.98 H Estim Creat Clear Calc 17.5 Estimated GFR 20 POC Glucose Random Glucose 202 H Calcium 7.5 L Phosphorus 4.8 H Magnesium 2.1 Total Bilirubin 0.7 Direct Bilirubin 0.4 AST 47 H D ALT 92 H Alkaline Phosphatase 124 H D Total Protein 6.1 L Albumin 4.0 D Rosiglitazone Pioglitazone Nateglinide Repaglinide Chlorpropamide Tolbutamide Tolazamide Glimepiride Glipizide Glibenclamide Coronavirus (PCR) SARS-CoV-2 (PCR) Influenza Type A (PCR) Influenza Type B (PCR) RSV RNA Qual (PCR) Blood Type Antibody Screen Crossmatch 06/02/20 06/02/20 06/02/20 07:30 11:00 11:49 WBC RBC Hgb Hct MCV MCH MCHC RDW Plt Count MPV Immature Gran % (Auto) Neut % (Auto) Lymph % (Auto) [place] % (Auto) Eos % (Auto) Baso % (Auto) Lymph # (Auto) [place] # (Auto) Eos # (Auto) Baso # (Auto) Abs Immat Gran (auto) Absolute Neuts (auto) Absolute Nucleated RBC Nucleated RBC % (auto) Smear Tech's Comments PTT (Heparin Protocol) VBG pH VBG pCO2 VBG pO2 VBG HCO3 VBG O2 Saturation VBG Base Excess Sodium Potassium Chloride Carbon Dioxide Anion Gap BUN Creatinine Estim Creat Clear Calc Estimated GFR POC Glucose 219 H Random Glucose Calcium Phosphorus Magnesium Total Bilirubin Direct Bilirubin AST ALT Alkaline Phosphatase Total Protein Albumin Rosiglitazone Pioglitazone Nateglinide Repaglinide Chlorpropamide Tolbutamide Tolazamide Glimepiride Glipizide Glibenclamide Coronavirus (PCR) NEGATIVE SARS-CoV-2 (PCR) Cancelled Influenza Type A (PCR) NEGATIVE Influenza Type B (PCR) NEGATIVE RSV RNA Qual (PCR) NEGATIVE Blood Type A Positive Antibody Screen NEGATIVE Crossmatch See Detail Microbiology Microbiology Results: Microbiology 05/23/20 17:42 Blood - Venous Blood Culture - Final No growth after 5 days. 05/23/20 16:49 Blood - Venous Blood Culture - Final No growth after 5 days. Progress Note: A&P Assessment and plan (1) SUKHWINDER (acute kidney injury): Status: Acute Assessment and Plan: Assessment: 84-year-old gentleman with underlying CAD and prior AR admitted with COVID-19 related ARDS resulting acute hypoxic respiratory failure further complicated by cardiac arrest secondary to an acute AR with successful resuscitation intubated during the cardiac arrest Plan: Neuro: Moves all 4 extremities. Follows some commands with sedation vacation. Will obtain neurological consultation for slow recovery after cardiac arrest Cardiac: Cardiac arrest and cardiogenic shock secondary to acute AR, improving. Continue to titrate off pressors as tolerated. Cardiology service care appreciated. Deemed not a candidate for an acute intervention. Continue with medical management. Status post heparin drip for 48 hours. Aspirin and Plavix stopped secondary to drop in hemoglobin and small amount of coffee-ground drainage in OG tube. Pulmonary: Acute hypoxic respiratory failure secondary to COVID-19 related ARDS. Intubated during the CPR. Continue to titrate off ventilatory support as tolerated. Renal: Acute renal failure secondary to cardiogenic shock. Non oliguric. Continue to monitor renal indices and urine output. Hyperkalemia, continue to monitor electrolytes. Does not require dialysis at this time. Endo: No acute issues. GI: Stress gastritis, started on PPI. ID: COVID-19 related viral sepsis. Completed remdesivir. Continue on dexamethasone for total of 10 days. Heme/Onc: Acute blood loss anemia secondary to stress gastritis from critical illness, glucocorticoids use, and anticoagulation for underlying AR. Anticoagulation held. Patient transfused 1 unit of packed red blood cells. Continue to monitor hemoglobin. Transfusion threshold of 7. Psych: No acute issues. Miscellaneous: No acute issues. Prophylaxis: Intermittent pneumatic compression, ppi Diet: Tube feeds Critical care time spent: 90 minutes (2) Cardiogenic shock: Status: Acute (3) Cardiac arrest with successful resuscitation: Status: Acute (4) Acute AR, inferolateral wall: Status: Acute (5) Acute respiratory failure with hypoxia: Status: Acute (6) Diabetes type 2, uncontrolled: Status: Acute (7) Acute respiratory distress syndrome (ARDS) due to 2019 novel coronavirus: Status: Acute (8) Gastritis: Status: Acute Time Spent With Patient Total time spent with greater than 50% in coordination of care (as documented) at patient's floor/unit and/or counseling patient:: 0 Critical Care Time Critical Care Time (minutes): 90
[2020-06-02] MEDS: Pantoprazole Sodium 40 MG/10 ML VIAL IVPUSH (16:29)
--- NOTE | 2020-06-02 16:42 | P.CNNE_ITS ---
History of Present Illness Data of Consult Service Date: 06/02/20 Primary Care Provider: Mitchell Gleason MD 84 years old man well known to me as a friend with this is the 1st time on consulting him as a physician. He was in an unfortunate situation suffering from complications of COVID. He was admitted in hospital for about 10-15 days ago with flu-like illness suggestive of COVID. He was found to be with this infection and was managed on intermediate care unit but his requirement for oxygenation continued to increase. Few days ago he had cardiac arrest resulting in appropriate resuscitation but it took about 15-20 minutes, he was intubated and brought to intensive care unit. For last 48 hours sales compensation analyst has been trying to extubate him but without success. He was requiring 100% oxygen and he was sedated. When he was off sedated he was noted to be either minimally are not responsive to stimuli. There was no obvious posturing or seizure-like activity. Review of Systems Review of Systems: Could not be done at this time PMFSH Past Medical History Medical History CKD stage 3 due to type 2 diabetes mellitus Diabetes type 2, uncontrolled Diabetic nephropathy associated with type 2 diabetes mellitus Diabetic polyneuropathy associated with type 2 diabetes mellitus Dyslipidemia Hypertension Hypoglycemia unawareness associated with type 2 diabetes mellitus skilled nursing (current) use of insulin Family History Family history: reviewed and not pertinent Surgical History Surgical History History of colon resection History of prostate surgery Hx of cholecystectomy Social History Social History Household Members: Family Housing: House Do you presently have visiting nurse or other home services: No Alcohol intake: never Smoking Status: Former smoker Tobacco Type: Cigarette Smoked in Last 30 Days: No Patient Interested in Nicotine Replacement: No Patient Given Instructions on How to Stop Smoking: No Second Hand Smoke Exposure: No Use of substances other than those prescribed or required for medical reasons: No Currently Displaying Signs/Symptoms of Drug Intoxication Withdrawal: No Have you been hit, kicked, punched, or otherwise hurt by someone within the past year? If so, by whom?: No Do you feel safe in your current relationship?: No Is there a partner from a previous relationship who is making you feel unsafe now?: No Are you made to feel afraid or neglected: No Advance Directives: No Advance Directives Information Provided: No Do you have thoughts of harming others: None Do you have a plan to hurt others: No Plan Recently lost weight without trying: No Current occupational status: employed Meds Allergies Allergy/AdvReac Type Severity Reaction Status Date / Time Unable to Assess Allergy Verified 05/23/20 16:11 Home Medications Medication Instructions Recorded Confirmed Type aspirin 81 mg tablet,delayed 81 mg PO DAILY 05/11/20 05/23/20 History release atorvastatin 20 mg tablet 20 mg PO DAILY 05/11/20 05/23/20 History blood sugar diagnostic #10 ea 05/11/20 05/11/20 History metformin 500 mg tablet 500 mg PO BID tab 05/11/20 05/23/20 History metoprolol succinate 50 mg 25 mg PO DAILY tab 05/11/20 05/23/20 History tablet,extended release 24 hr pen needle, diabetic 32 gauge x #50 ea 05/11/20 05/11/20 History sitagliptin [Januvia] 100 mg PO DAILY 05/23/20 05/23/20 History Physical Exam Vital Signs: Vital Signs: Last Vital Signs Temp 99 F 06/02/20 15:57 Pulse 102 H 06/02/20 15:57 Resp 19 06/02/20 15:57 BP 100/50 L 06/02/20 15:57 Pulse Ox 100 06/02/20 15:57 Body Mass Index 24.9 Examination was performed after lightening sedation. He was on propofol and fentanyl. I examined him twice within a span of about 15 minutes. He did not respond to verbal or painful stimuli. There was no abnormal posturing. I was able to open his eyes. His pupils are about 2-3 mm round and reactive. I was able to move his eyes with oculocephalic maneuver. Deep tendon reflexes were absent with flexor plantars. Results Labs CBC & Chem 7: 06/02/20 05:42 06/02/20 05:42 Labs: Short CBC 06/02/20 Range/Units 05:42 WBC 15.1 H (4.8-10.8) X10*3/uL Hgb 6.8 L* D (14.0-18.0) g/dl Hct 22.2 L (42-52) % Plt Count 279 (160-400) X10*3/uL BMP 06/02/20 05:42 Sodium 144 Potassium 5.2 H Chloride 111 H Carbon Dioxide 17 L BUN 72 H Creatinine 2.98 H Calcium 7.5 L Liver Function 06/02/20 Range/Units 05:42 Total Bilirubin 0.7 (0.0-1.0) mg/dL Direct Bilirubin 0.4 (0.0-0.5) mg/dL AST 47 H D (5-37) U/L ALT 92 H (0-40) U/L Alkaline Phosphatase 124 H D (39-117) U/L Albumin 4.0 D (3.5-5.0) g/dL His chest x-ray revealed diffuse bilateral airspace disease. Noncontrast head CT done few days ago revealed moderately severe diffuse cerebral and cerebellar atrophy. His echocardiogram revealed a carton easy of lateral wall with an ejection fraction of about 35-40%. Microbiology Microbiology Results: Microbiology 05/23/20 17:42 Blood - Venous Blood Culture - Final No growth after 5 days. 05/23/20 16:49 Blood - Venous Blood Culture - Final No growth after 5 days. Assessment and Plan (1) Anoxic encephalopathy: Status: Acute 84 years old man with COVID infection affecting multiple organs, status post recent cardiac arrest, was likely suffering from anoxic encephalopathy. Underlying he had moderate cerebral atrophy. At this time main issue is to make sure there is no treatable condition. I would recommend obtaining a noncontrast head CT and an electroencephalogram. This would help us prognosticate his condition. Overall prognosis was not good.
[2020-06-02 17:49] LABS: Basophils Percent Auto 0.1 % (0-2); Hematocrit 28.3 % (42-52); Hemoglobin 8.9 g/dl (14.0-18.0); Imm Gran Abs Auto 0.66 X10*3/uL (0.00-0.03); Lymphocytes Absolute Auto 0.2 X10*3/uL (1.2-4.9); Lymphocytes Percent Auto 0.9 % (20-40); MANUAL DIFF FLAG SCAN; Mean Corpuscular HGB Conc 31.4 g/dl (31.0-36.0); Mean Corpuscular Hemoglobin 29.2 pg (27.0-33.0); Mean Corpuscular Volume 92.8 fL (80-98); Mean Platelet Volume 10.6 fL (9.4-12.4); Monocytes Absolute Auto 0.6 X10*3/uL (0.1-1.2); Monocytes Percent Auto 3.6 % (2-11); NRBC Pct Auto 0.4 /100WBC (0.0-0.2); Neutrophils Absolute Auto 14.9 X10*3/uL (2.0-8.3); Neutrophils Percent Auto 91.4 % (45-73); Platelet Count 253 X10*3/uL (160-400); Red Blood Count 3.05 X10*6/uL (4.60-5.80); Red Cell Distribution Width 15.2 % (11.0-16.0); SCAN SMEAR FLAG 1; White Blood Count 16.4 X10*3/uL (4.8-10.8)
[2020-06-02 17:58] LABS: Glucose, Whole Blood 209 mg/dL (60-115)
[2020-06-02 18:07] LABS: SLIDE REVIEW VERIFIED
--- NOTE | 2020-06-02 18:14 | PC.NURSE ---
PT SEDATED WITH FENTANYL AND PROPOFOL. PUPILS PINPOINT - SLUGGISH, AT START OF SHIFT NO COUGH, BUT POSITIVE GAG. WITH SEDATION VACATION, COUGH RESUMED. SEDATION VACATION [id number]. PT ABLE TO SQUEEZE HAND OF MD AFTER MUCH ENCOURAGEMENT, DOES NOT TRACK, BITE BLOCK INSERTED DUE TO BITING OF ETT. AFEBRILE. LEVOPHED AND DOPAMINE GTT TITRATED PER MD ORDER FOR MAP > 55. VENT SETTING: AC 20, TV 450, PEEP 10, FI02 100%. LS DIMINISHED IN THE BASES. OG TUBE REMOVED DUE TO COILING, TUBE FEEDS ON HOLD, MD AWARE. Q6H POC COVERED WITH SLIDING SCALE INSULIN. URINE WNL FROM DENG. LACTULOSE GIVEN AND NO BM THIS SHIFT, DARK COLORED SMEAR WITH SUMAN CARE. Q2H REPO, BATHED, BARRIER CREAM, PREVALON MATTRESS UTILIZED. FAMILY UPDATED BY THIS RN AND MD. NEUROLOGY CONSULTED. SEDATION DECREASED FOR MD ASSESSMENT. PT TO GO TO CT AT 2000 TONIGHT. EEG FOR TOMORROW.
[2020-06-02] MEDS: propofoL 1,000 MG/100 ML VIAL 8.66 MG IVCONT (19:40)
--- NOTE | 2020-06-02 20:00 | CT_ITS ---
EXAMINATION: CT HEAD WITHOUT CONTRAST CLINICAL INFORMATION: Altered mental status COMPARISON: CT head 05/23/2020 TECHNIQUE: Contiguous axial imaging was performed from the skull base to vertex without intravenous administration of contrast. This CT examination was performed using dose optimization techniques as appropriate, variously including the following: *Automated exposure control *Adjustment of mA and/or kV according to patient size (this includes techniques or standardized protocols for targeted exams where dose is matched to indication/reason for exam; i.e. extremities or head) *Use of iterative reconstruction technique DLP: 702 mGy-cm FINDINGS: There is no evidence of acute intracranial hemorrhage or territorial infarction. No abnormal mass effect or midline shift is seen. Farmer to white matter differentiation is well preserved. No extra-axial fluid collections are identified. There is atrophy with prominence of the ventricles and the sulci and hypodensity of the periventricular white matter due to chronic small vessel ischemic disease. There are vascular calcifications of the internal carotid arteries bilaterally. The osseous structures and soft tissues are normal. The mastoid air cells and visualized portions of the paranasal sinuses are well aerated. CT/CT head/brain wo con IMPRESSION: No acute intracranial pathology.
[2020-06-02] MEDS: Insulin Glargine,Hum.rec.anlog 100 UNIT/ML 10 ML VIAL 30 UNIT SUBCUT (20:57)
--- NOTE | 2020-06-02 21:22 | P.EN_ITS ---
Event Note Date of Service: 06/02/20 Event Note: Patient daughter/HCP, Chanell To, called and requested for pat ient code status to be changed to do no resuscitate. States family is aware of change in code status.
[2020-06-02 21:25] LABS: Glucose, Whole Blood 188 mg/dL (60-115)
[2020-06-03] VITALS (23 sets, daily range): BP systolic 76–157; BP diastolic 37–78; PULSE 108–137; RESP 16–27; TEMP 36.4–38.7; O2SAT 86–98
--- NOTE | 2020-06-03 | EEG_ITS ---
This is a 16-channel portable EEG performed in ICU. The patient is intubated and unresponsive. Background EEG rhythm is very low amplitude with occasional slightly higher amplitude waveform noted. No normal waveforms were seen. Cardiac lead revealed tachycardia with a rate of about more than 100 per minute. Photic stimulation and hyperventilation were not performed. IMPRESSION: Severe bilateral dysfunction suggestive of diffuse encephalopathy. MD LIV Cobb/RIAZ / [id number]
[2020-06-03 00:09] LABS: Glucose, Whole Blood 187 mg/dL (60-115)
[2020-06-03] MEDS: propofoL 1,000 MG/100 ML VIAL 17.33 MG IVCONT ×2 (00:29→13:16)
[2020-06-03] MEDS: fentaNYL citrate/NS 1,000 MCG/100 ML PLAST..BAG 10 MCG IVCONT ×2 (00:31→13:16)
[2020-06-03] MEDS: Chlorhexidine Gluc Oral Rinse 15 ML MOUTHWASH BUCCAL ×2 (05:04→13:16)
[2020-06-03] MEDS: Pantoprazole Sodium 40 MG/10 ML VIAL IVPUSH ×2 (05:04→15:53)
[2020-06-03 05:11] LABS: Glucose, Whole Blood 184 mg/dL (60-115)
[2020-06-03] MEDS: DOPamine HCL/D5W 400 MG/250 ML PLAST..BAG 8.12 MG IVCONT (05:40)
[2020-06-03] MEDS: propofoL 1,000 MG/100 ML VIAL 13 MG IVCONT (05:40)
[2020-06-03 05:47] LABS: Basophils Percent Auto 0.1 % (0-2); Hematocrit 29.3 % (42-52); Hemoglobin 9.1 g/dl (14.0-18.0); Imm Gran Abs Auto 0.47 X10*3/uL (0.00-0.03); Imm Gran Pct Auto 2.6 % (0.0-0.4); Lymphocytes Absolute Auto 0.2 X10*3/uL (1.2-4.9); Lymphocytes Percent Auto 0.9 % (20-40); MANUAL DIFF FLAG SCAN; Mean Corpuscular HGB Conc 31.1 g/dl (31.0-36.0); Mean Corpuscular Hemoglobin 29.4 pg (27.0-33.0); Mean Corpuscular Volume 94.8 fL (80-98); Mean Platelet Volume 10.5 fL (9.4-12.4); Monocytes Absolute Auto 0.4 X10*3/uL (0.1-1.2); Monocytes Percent Auto 2.2 % (2-11); NRBC Pct Auto 0.3 /100WBC (0.0-0.2); Neutrophils Absolute Auto 16.8 X10*3/uL (2.0-8.3); Neutrophils Percent Auto 94.2 % (45-73); Platelet Count 216 X10*3/uL (160-400); Red Blood Count 3.09 X10*6/uL (4.60-5.80); Red Cell Distribution Width 15.7 % (11.0-16.0); SCAN SMEAR FLAG 1; White Blood Count 17.8 X10*3/uL (4.8-10.8)
[2020-06-03 05:51] LABS: HCO3 VBG 19 mmol/L; PCO2 VBG 60 mmhg; PO2 VBG 49 mmhg
[2020-06-03 05:52] LABS: Oxygen Saturation VBG 76.3 %
[2020-06-03 05:53] LABS: pH VBG 7.12 (7.32-7.43)
[2020-06-03 06:10] LABS: SLIDE REVIEW VERIFIED
[2020-06-03 06:13] LABS: Albumin Level 3.5 g/dL (3.5-5.0); Anion Gap 19 (12-20); Blood Urea Nitrogen 75 mg/dL (9-16); Calcium 7.1 mg/dL (8.4-10.2); Carbon Dioxide 18 mmol/L (22-29); Chloride 114 mmol/L (96-108); Creatinine Clr Calc Pharmacy 15.2; Estimated Glomerular Filt Rate 17; Glucose Random 206 mg/dL (60-115); Magnesium 2.2 mg/dL (1.6-2.6); Phosphorus 6.2 mg/dL (2.7-4.5); Potassium 5.4 mmol/l (3.3-5.1); Sodium 146 mmol/L (135-145)
[2020-06-03] MEDS: Sodium Bicarbonate 8.4% 50 MEQ/50 ML VIAL IVPUSH (06:24)
[2020-06-03] MEDS: 0.9 % Sodium Chloride Flush 3 ML SYRINGE IVFLUSH (07:41)
[2020-06-03] MEDS: dexAMETHasone sod phosphate 4 MG/ML VIAL 6 MG IVPUSH (07:42)
--- NOTE | 2020-06-03 08:38 | P.CDIC_ITS ---
CDI Concurrent Query Service Date: 06/03/20 Documentation Clarification: Please clarify if you are treating a proba ble/suspected/likely or confirmed: Viral Sepsis due to Covid-19/Pneumonia/ARDS w organ failure (Present on arrival, developed after admit, No sepsis, Resolved) Covid-19 Pneumonia with ARDS with organ failure Please specify if known or other Provider Response: Other Other Diagnosis: COVID-19 related viral sepsis with end organ dysfunction PLEASE DO NOT DELETE/MODIFY EXISTING CONTENT Additional information is needed in order to code to the highest accuracy and appropriate Severity of Illness (SOI). Please clarify the information noted below in your progress notes and discharge summary. Risk Factors/Clinical Indicators/Treatments Ed: 05/23-body aches, weakness, SOB, frail w temp 99.1 HR 91 RR 20 LA 2.5 Covid-19+ H&P: Pneumonia due to Covid-19 generalized weakness likely in setting of viral infection. Temp 101.5 HR 112 RR 22 pulse ox 90L placed on 4L oxygen, Dexamethason, empiric antibiotics, ceftriaxone, azthiromycin, adding remdesivir. ID: 05/24 - Pneumonia due to covid-19 infection, hypoxia, tachypnea, fever, chills. PN: 05/28 - Covid-19 pneumonia w acute hypoxic respiratory failure. ICU - pt delirious, acute encephalopathy, LA 8.1 due to dehydration. PN 05/31- cardiac arrest. CDS: Abril Jurado CCS, CDIS Contact Number: [phone]. [phone] Please Review the information above and exercise your independent professional judgment in responding to the query. If you concur, pleas document in the PROGRESS NOTES and DISCHARGE SUMMARY. If you do not agree with the query, please document in the query above. THIS QUERY IS PART OF THE PERMANENT MEDICAL RECORD
--- NOTE | 2020-06-03 08:49 | P.CNNE_ITS ---
History of Present Illness Data of Consult Service Date: 06/03/20 Primary Care Provider: Mitchell Gleason MD 84 years old man with the cardiopulmonary arrest started with COVID. I examined him this morning again after about 2025 minutes of sedation. He was comatose. [facility] Past Medical History Medical History CKD stage 3 due to type 2 diabetes mellitus Diabetes type 2, uncontrolled Diabetic nephropathy associated with type 2 diabetes mellitus Diabetic polyneuropathy associated with type 2 diabetes mellitus Dyslipidemia Hypertension Hypoglycemia unawareness associated with type 2 diabetes mellitus assisted (current) use of insulin Family History Family history: reviewed and not pertinent Surgical History Surgical History History of colon resection History of prostate surgery Hx of cholecystectomy Social History Social History Household Members: Family Housing: House Do you presently have visiting nurse or other home services: No Alcohol intake: never Smoking Status: Former smoker Tobacco Type: Cigarette Smoked in Last 30 Days: No Patient Interested in Nicotine Replacement: No Patient Given Instructions on How to Stop Smoking: No Second Hand Smoke Exposure: No Use of substances other than those prescribed or required for medical reasons: No Currently Displaying Signs/Symptoms of Drug Intoxication Withdrawal: No Have you been hit, kicked, punched, or otherwise hurt by someone within the past year? If so, by whom?: No Do you feel safe in your current relationship?: No Is there a partner from a previous relationship who is making you feel unsafe now?: No Are you made to feel afraid or neglected: No Advance Directives: No Advance Directives Information Provided: No Do you have thoughts of harming others: None Do you have a plan to hurt others: No Plan Recently lost weight without trying: No Current occupational status: employed Meds Allergies Allergy/AdvReac Type Severity Reaction Status Date / Time Unable to Assess Allergy Verified 05/23/20 16:11 Home Medications Medication Instructions Recorded Confirmed Type aspirin 81 mg tablet,delayed 81 mg PO DAILY 05/11/20 05/23/20 History release atorvastatin 20 mg tablet 20 mg PO DAILY 05/11/20 05/23/20 History blood sugar diagnostic #10 ea 05/11/20 05/11/20 History metformin 500 mg tablet 500 mg PO BID tab 05/11/20 05/23/20 History metoprolol succinate 50 mg 25 mg PO DAILY tab 05/11/20 05/23/20 History tablet,extended release 24 hr pen needle, diabetic 32 gauge x #50 ea 05/11/20 05/11/20 History sitagliptin [Januvia] 100 mg PO DAILY 05/23/20 05/23/20 History Physical Exam Vital Signs: Vital Signs: Last Vital Signs Temp 99.5 F 06/03/20 08:00 Pulse 132 H 06/03/20 08:00 Resp 21 H 06/03/20 08:00 BP 96/43 L 06/03/20 08:00 Pulse Ox 86 L 06/03/20 08:00 Body Mass Index 24.9 No response to verbal or painful stimuli. Pupils were about 2-3 mm and reactive. There were round. I could barely move them with oculocephalic maneuver. Gag reflex was absent. Corneal reflex seems to be absent. There was no abnormal posturing or movement. Deep tendon reflexes were absent with flexor plantars. Results Labs CBC & Chem 7: 06/03/20 05:15 06/03/20 05:15 Labs: Short CBC 06/02/20 06/03/20 Range/Units 17:41 05:15 WBC 16.4 H 17.8 H (4.8-10.8) X10*3/uL Hgb 8.9 L D 9.1 L (14.0-18.0) g/dl Hct 28.3 L D 29.3 L (42-52) % Plt Count 253 216 (160-400) X10*3/uL BMP 06/03/20 05:15 Sodium 146 H Potassium 5.4 H Chloride 114 H Carbon Dioxide 18 L BUN 75 H Creatinine 3.43 H Calcium 7.1 L Liver Function 06/03/20 Range/Units 05:15 Albumin 3.5 (3.5-5.0) g/dL Noncontrast head CT did not reveal any obvious acute pathology. Microbiology Microbiology Results: Microbiology 05/23/20 17:42 Blood - Venous Blood Culture - Final No growth after 5 days. 05/23/20 16:49 Blood - Venous Blood Culture - Final No growth after 5 days. Assessment and Plan (1) Anoxic encephalopathy: Status: Acute No significant change from yesterday's situation, in fact his situation is overall worsened. He is requiring 3 vasopressors. There are multiple metabolic abnormalities. At this time plan is to obtain an EEG to just make sure there is no possibility of status. At the same time family would be informed of the grave situation he was in due to primarily cardiopulmonary failure.
--- NOTE | 2020-06-03 10:08 | PC.NURSE ---
Addendum entered by Micah Alanis RN 06/03/20 14:14: [facility] called at 1413, reference # [id number], spoke with Olivia. Case has been declined. Original Note: Pt sedated, unarousable, mechincally ventilated. Vent settings AC 20, FiO2 100%, PEEP 10, Set Tv 450. Tv are 700 with minute volumes at 10-11L/min RR 27, SaO2 85% start of shift, after suctioning up to 94% and holding. Lung sounds clear upper lobes, fine crackles bilat bases. ETT 7.5 and 25cm lip. Suctioned for thick creamy white, scant blood tinged secretions. SaO2 breifly lowers 88% when supine. Propofol at 40mcg/kg/min at start of shift, decreased to 10mcg/kg/min at 0810 along with fentanyl decreased to 50mcg/hr per MD to prepare for EEG. EEG currently being done at bedside. Heart rhythm 130's accelerated junctional rhythm occcasinal PVC and PAC. SBP 89-120/ DBP 37-54. Currently on norepinephrine at 0.3mcg/kg/min, dopamine at 10mcg/kg/min, epinephrine 0.1. Temp increasing from 99.3 to 99.9, MD aware. Urine output 85ml/hr. Family member to come in to see pt today. Bed locked and in lowest position.
--- NOTE | 2020-06-03 12:45 | P.CDIC_ITS ---
CDI Concurrent Query Service Date: 06/03/20 Documentation Clarification: Please clarify if you are treating a proba ble/suspected/likely or confirmed: Acute Encephalopathy Anoxic Encephalopathy Please specify if known or other Provider Response: Other Other Diagnosis: Encephalopathy, unclear etiology. PLEASE DO NOT DELETE/MODIFY EXISTING CONTENT Additional information is needed in order to code to the highest accuracy and appropriate Severity of Illness (SOI). Please clarify the information noted below in your progress notes and discharge summary. Risk Factors/Clinical Indicators/Treatments PN: 1/3 - Acute encephalopathy confused, delirious, hypoxic, cardiac arrest. Problem list: Anoxic encephalopathy CDS: Abril Jurdao CCS, CDIS Contact Number: [phone] Please Review the information above and exercise your independent professional judgment in responding to the query. If you concur, pleas document in the PROGRESS NOTES and DISCHARGE SUMMARY. If you do not agree with the query, please document in the query above. THIS QUERY IS PART OF THE PERMANENT MEDICAL RECORD
--- NOTE | 2020-06-03 15:08 | P.PNCC_ITS ---
Subjective Subjective Date of Service: 06/03/20 Interval History: 84-year-old gentleman with underlying history of coronary artery disease, hypertension hospitalized on 05/23/2020 with COVID-19 related acute hypoxic respiratory failure with high FiO2 requirements. He has been started on dexamethasone and Remdesivir. His hospital course was complicated by cardiac arrest at 1:20 a.m. on 05/31/2020,initially bradycardia/asystole/PEA, later V-tach/VFib with return of spontaneous circulation after approximately 15 minutes of CPR intubated during the CPR. Post cardiac arrest echo with new lateral wall motion abnormalities. Evaluated by Cardiology service and deemed not a candidate for an acute intervention. Patient has been managed medically and intensive care unit. Overnight with significantly increasing vasopressor requirements and worsening neurologic status this a.m. on sedation vacation. Physical Exam Vital Signs: Vital Signs: Last Vital Signs Temp 101.1 F H 06/03/20 13:52 Pulse 127 H 06/03/20 13:52 Resp 22 H 06/03/20 13:52 BP 98/49 L 06/03/20 13:52 Pulse Ox 96 06/03/20 13:52 Body Mass Index 24.9 Const: General: no acute distress and other (No arousal with sedation vacation) Eyes: Sclerae: sclerae normal Pupils: Pupils not reactive Neck: Neck: Yes no lymphadenopathy, Yes trachea midline and Yes supple Resp: Auscultation: crackles (Bibasilar) Cardio: Rate: tachycardic Rhythm: regular rhythm Heart sounds: no gallops, no murmurs and no rubs GI: Palpation (GI): Soft to palpation and Other GI palpation findings present ( Nontender) Auscultation: normal bowel sounds Extrem: General: No clubbing, No cyanosis and Yes edema (Trace bilateral) Objective Data Labs CBC & Chem 7: 06/03/20 05:15 06/03/20 05:15 Labs: Laboratory Results - last 24 hr 06/02/20 06/02/20 06/02/20 17:41 17:48 20:50 WBC 16.4 H RBC 3.05 L D Hgb 8.9 L D Hct 28.3 L D MCV 92.8 MCH 29.2 MCHC 31.4 RDW 15.2 Plt Count 253 MPV 10.6 Immature Gran % (Auto) 4.0 H Neut % (Auto) 91.4 H Lymph % (Auto) 0.9 L [place] % (Auto) 3.6 Eos % (Auto) 0.0 Baso % (Auto) 0.1 Lymph # (Auto) 0.2 L [place] # (Auto) 0.6 Eos # (Auto) 0.0 Baso # (Auto) 0.0 Abs Immat Gran (auto) 0.66 H Absolute Neuts (auto) 14.9 H Absolute Nucleated RBC 0.060 H Nucleated RBC % (auto) 0.4 H Smear Tech's Comments VERIFIED VBG pH VBG pCO2 VBG pO2 VBG HCO3 VBG O2 Saturation VBG Base Excess Sodium Potassium Chloride Carbon Dioxide Anion Gap BUN Creatinine Estim Creat Clear Calc Estimated GFR POC Glucose 209 H 188 H Random Glucose Calcium Phosphorus Magnesium Albumin 06/02/20 06/03/20 06/03/20 23:59 05:03 05:15 WBC 17.8 H RBC 3.09 L Hgb 9.1 L Hct 29.3 L MCV 94.8 MCH 29.4 MCHC 31.1 RDW 15.7 Plt Count 216 MPV 10.5 Immature Gran % (Auto) 2.6 H Neut % (Auto) 94.2 H Lymph % (Auto) 0.9 L [place] % (Auto) 2.2 Eos % (Auto) 0.0 Baso % (Auto) 0.1 Lymph # (Auto) 0.2 L [place] # (Auto) 0.4 Eos # (Auto) 0.0 Baso # (Auto) 0.0 Abs Immat Gran (auto) 0.47 H Absolute Neuts (auto) 16.8 H Absolute Nucleated RBC 0.050 H Nucleated RBC % (auto) 0.3 H Smear Tech's Comments VERIFIED VBG pH VBG pCO2 VBG pO2 VBG HCO3 VBG O2 Saturation VBG Base Excess Sodium Potassium Chloride Carbon Dioxide Anion Gap BUN Creatinine Estim Creat Clear Calc Estimated GFR POC Glucose 187 H 184 H Random Glucose Calcium Phosphorus Magnesium Albumin 06/03/20 06/03/20 05:15 05:15 WBC RBC Hgb Hct MCV MCH MCHC RDW Plt Count MPV Immature Gran % (Auto) Neut % (Auto) Lymph % (Auto) [place] % (Auto) Eos % (Auto) Baso % (Auto) Lymph # (Auto) [place] # (Auto) Eos # (Auto) Baso # (Auto) Abs Immat Gran (auto) Absolute Neuts (auto) Absolute Nucleated RBC Nucleated RBC % (auto) Smear Tech's Comments VBG pH 7.12 L* VBG pCO2 60 VBG pO2 49 VBG HCO3 19 VBG O2 Saturation 76.3 VBG Base Excess -11.0 Sodium 146 H Potassium 5.4 H Chloride 114 H Carbon Dioxide 18 L Anion Gap 19 BUN 75 H Creatinine 3.43 H Estim Creat Clear Calc 15.2 Estimated GFR 17 POC Glucose Random Glucose 206 H Calcium 7.1 L Phosphorus 6.2 H Magnesium 2.2 Albumin 3.5 Microbiology Microbiology Results: Microbiology 05/23/20 17:42 Blood - Venous Blood Culture - Final No growth after 5 days. 05/23/20 16:49 Blood - Venous Blood Culture - Final No growth after 5 days. Progress Note: A&P Assessment and plan (1) Encephalopathy acute: Status: Acute Assessment and Plan: Assessment: 84-year-old gentleman with underlying CAD and prior MT admitted with COVID-19 related ARDS resulting acute hypoxic respiratory failure further complicated by cardiac arrest secondary to an acute MT with successful resuscitation intubated during the cardiac arrest Plan: Neuro: Significantly worsening neurologic status with no arousal with sedation vacation. EEG this a.m. with profound encephalopathic pattern. Neurology service care appreciated. CT head scan this a.m. with no acute findings. Cardiac: Cardiac arrest and cardiogenic shock secondary to acute MT, worsening overnight, now requiring support with 3 vasopressors. Cardiology service care appreciated. Deemed not a candidate for an acute intervention. Continue with medical management. Pulmonary: Acute hypoxic respiratory failure secondary to COVID-19 related ARDS. Intubated during the CPR. Continue to titrate off ventilatory support as tolerated. Renal: Acute renal failure secondary to cardiogenic shock. Non oliguric. Continue to monitor renal indices and urine output. Hyperkalemia, continue to monitor electrolytes. Does not require dialysis at this time. Endo: No acute issues. GI: Stress gastritis, improved on PPI. ID: COVID-19 related viral sepsis. Completed remdesivir. Completed 10 days of dexamethasone. Heme/Onc: Acute blood loss anemia secondary to stress gastritis from critical illness, glucocorticoids use, and anticoagulation for underlying MT status post 1 unit of packed red blood cells, resolved. Psych: No acute issues. Miscellaneous: No acute issues. Overall very poor clinical prognosis and recent deterioration discussed with family/healthcare proxy who are considering changing the goals of care to palliation. Prophylaxis: Intermittent pneumatic compression, ppi Diet: Tube feeds Critical care time spent: 90 minutes (2) SUKHWINDER (acute kidney injury): Status: Acute (3) Cardiogenic shock: Status: Acute (4) Acute MT, inferolateral wall: Status: Acute (5) Cardiac arrest with successful resuscitation: Status: Acute (6) Acute respiratory distress syndrome (ARDS) due to 2019 novel coronavirus: Status: Acute (7) Acute respiratory failure with hypoxia: Status: Acute Time Spent With Patient Total time spent with greater than 50% in coordination of care (as documented) at patient's floor/unit and/or counseling patient:: 0 Critical Care Time Critical Care Time (minutes): 90
--- NOTE | 2020-06-03 16:03 | PM.CCN ---
Critical Care Event Note Summary Code activated: No Narrative: Another family discussion held. Overall extremity poor prognosis for any meaningful recovery re-emphasized. Family/healthcare proxy decided to change goals of care to palliation. Code status changed to comfort measures only. Will proceed with discontinuation of vasopressor and ventilatory support. Critical Care Time (minutes): 20
--- NOTE | 2020-06-03 16:53 | PM.DDS ---
Discharge Sum: Prov Provider Primary care physician: Mitchell Gleason MD Consults: 05/23/20 20:04 Consult to Infectious Diseases Routine Consulting Provider: Екатерина Portillo Reason for consultation: Covid PNA Has provider been notified: No 05/24/20 11:17 Consult to Infectious Diseases Routine Consulting Provider: Екатерина Portillo Reason for consultation: covid 05/31/20 08:24 Consult to Cardiology Stat Consulting Provider: [facility] Reason for consultation: cardiogenic shock Has provider been notified: No 06/02/20 15:45 Consult to Neurology Routine Consulting Provider: Melodie Billings Reason for consultation: AMS, poor return to baseline mental status post code Has provider been notified: No Discharge Sum: Diag Contributing Factors (1) Encephalopathy acute: (2) SUKHWINDER (acute kidney injury): (3) Cardiogenic shock: (4) Acute NC, inferolateral wall: (5) Cardiac arrest with successful resuscitation: (6) Acute respiratory distress syndrome (ARDS) due to 2019 novel coronavirus: (7) Acute respiratory failure with hypoxia: Discharge Sum: Summary Date and Time Date of admission: 05/23/20 20:04 Date of : 06/03/20 Time of : 16:48 Summary Details: 84-year-old gentleman with underlying history of coronary artery disease, hypertension, chronic kidney disease, diabetes mellitus hospitalized on 05/23/2020 with COVID-19 related acute hypoxic respiratory failure with high FiO2 requirements requiring high-flow nasal cannula support. He has been started on dexamethasone and Remdesivir. His hospital course was significant for escalating FiO2 requirements and further complicated by cardiac arrest at 1:20 a.m. on 05/31/2020,initially bradycardia/asystole/PEA, later V-tach/VFib with return of spontaneous circulation after approximately 15 minutes of CPR intubated during the CPR. Post cardiac arrest echocardiogram was significant for new lateral wall motion abnormalities. He has been evaluated by Cardiology service and deemed not a candidate for an acute intervention. Patient has been managed medically in the intensive care unit. Unfortunately on the night of 06/02-06/03/2020 his vasopressor requirements increase significantly signifying worsening cardiomyopathy. On the morning of 06/03/2020 his neurologic status worsened and he had no arousal with sedation vacation. EEG has been obtained and showed profound bilateral encephalopathy. Family discussion has been held and overall extremity poor prognosis for any meaningful recovery was discussed. At that time family decided to change goals of care to comfort measures only. Vasopressor support has been withdrawn and patient passed peacefully at 4:48 p.m. on 06/03/2020. Discharge diagnoses: 1. Acute myocardial infarction 2. Cardiogenic shock 3. Acute encephalopathy 4. Acute hypoxic respiratory failure 5. Cardiac arrest with initial successful resuscitation 6. COVID-19 related ARDS 7. COVID-19 related viral sepsis with and organ dysfunction 8. Chronic kidney disease 9. Diabetes mellitus 10. Hypertension Additional Data Confirmation of as documented by pronouncing clinician: no pulse, no respirations, no heart sounds and pupils fixed and dilated Family: contacted Attending physician: Rno Cordova MD Was code activated?: No Autopsy requested?: No soft work wrapper layer and examiner notified?: No Hospice patient?: No
--- NOTE | 2020-06-03 17:29 | PC.NURSE ---
Family left at 1630, took pt's belongings. Epinephrine, levophed, and dopamine, turned off at 1630. Pt at 1648. Extubated by RT. Post-mortem care given. Family notified by . Fentanyl and propofol turned off after asystole.
== END 2020-06-03 16:48 | disposition expired | DRG 871 ==
LOC: HO.ED 22:06 → HO.IMC 23:01 → HO.ICU 05-31 02:23
PROVIDERS: Hospitalist; Internal Medicine; Nurse Practitioner Primary Care; Physician Assistant; Registered Nurse Community Health; Admitting Provider Hospitalist; Emergency Provider Emergency Medicine; PCP Family Medicine; Visit Provider Internal Medicine Pulmonary Disease
DX: A41.89 Other specified sepsis (principal); U07.1 COVID-19; J12.89 Other viral pneumonia; J80 Acute respiratory distress syndrome; I21.4 Non-ST elevation (NSTEMI) myocardial infarction; N17.9 Acute kidney failure, unspecified; E87.2 Acidosis; F05 Delirium due to known physiological condition; G93.1 Anoxic brain damage, not elsewhere classified; R65.20 Severe sepsis without septic shock; I12.9 Hypertensive chronic kidney disease with stage 1 through stage 4 chronic kidney disease, or unspecified chronic kidney disease; I25.10 Atherosclerotic heart disease of native coronary artery without angina pectoris; Z85.46 Personal history of malignant neoplasm of prostate; E78.5 Hyperlipidemia, unspecified; E11.22 Type 2 diabetes mellitus with diabetic chronic kidney disease; E86.0 Dehydration; N18.30 Chronic kidney disease, stage 3 unspecified; E11.65 Type 2 diabetes mellitus with hyperglycemia; R32 Unspecified urinary incontinence; I46.9 Cardiac arrest, cause unspecified; T38.0X5A Adverse effect of glucocorticoids and synthetic analogues, initial encounter; Y92.9 Unspecified place or not applicable; R57.0 Cardiogenic shock; E11.42 Type 2 diabetes mellitus with diabetic polyneuropathy; Z79.82 Long term (current) use of aspirin; Z79.84 Long term (current) use of oral hypoglycemic drugs; Z79.899 Other long term (current) drug therapy; Z66 Do not resuscitate; Z51.5 Encounter for palliative care
CPT/HCPCS: 0241U; 36415; 36600; 70450; 71045; 71250; 78580; 80048; 80053; 80076; 80337; 82040; 82550; 82803; 82947; 83605; 83615; 83735; 83880; 84100; 84145; 84484; 85007; 85025; 85027; 85379; 85610; 85730; 86140; 86850; 86900; 86901; 86920; 87040; 93005; 93306; 93970; 94002; 94003; 95816; 97162; 99285; A9540; J0171; J0282; J0456; J0696; J1100; J1265; J1650; J2250; J2370; J3010; J3490; P9016; P9047; Q0163